=== PATIENT | female | born 1990 | race Caucasian/White ===

== ENCOUNTER 2016-09-26 15:19 | Emergency (ER) | payer OTHER ==
[2016-09-26] MEDS ORDERED: KETOROLAC TROMETHAMINE 30 MG/ML SYRINGE. IV ONE (15:45)
[2016-09-26] MEDS ORDERED: IV NORMAL SALINE 1000ML BAG 1,000 ML IV ONE (15:45)
--- NOTE | 2016-09-26 15:46 | PHYS DOC ---
Past Medical History Past Medical History: No Pertinent History Past Surgical History: No Surgical History Alcohol Use: Occasionally Drug Use: None Adult General Chief Complaint Chief Complaint: FLANK PAIN HPI HPI Patient is a 26 year old female who presents with mild bilateral flank pain for 1 month, patient also states she's had urinary symptoms including dysuria for month. She states she has tried taking cranberry juice, cranberry pills with no relief. Patient denies any chance she is . Denies any nausea vomiting or fever. Denies any unusual vaginal discharge or concerns for STDs. Denies any hematuria or history of kidney stones. Review of Systems Review of Systems Constitutional: See history of present illness Eyes: Denies change in visual acuity, redness, or eye pain [] HENT: Denies nasal congestion or sore throat [] Respiratory: Denies cough or shortness of breath [] Cardiovascular: No additional information not addressed in HPI [] GI: See history of present illness : Bilateral flank pain and dysuria Musculoskeletal: Denies back pain or joint pain [] Integument: Denies rash or skin lesions [] Neurologic: Denies headache, focal weakness or sensory changes [] Endocrine: Denies polyuria or polydipsia [] Current Medications Current Medications Current Medications Medications (Trade) Dose Ordered Sig/Domenico Start Time Stop Time Status Last Admin Dose Admin Ketorolac Tromethamine (Toradol) 30 mg 1X ONCE 09/26/16 15:45 09/26/16 15:46 DC 09/26/16 17:18 30 MG Sodium Chloride (Iv Sodium Chloride 0.9% 1000ml Bag) 1,000 ml @ 1,000 mls/hr 1X ONCE 09/26/16 15:45 09/26/16 16:44 DC 09/26/16 17:17 1,000 MLS/HR Allergies Allergies Allergies Coded Allergies Type Severity Reaction Last Updated Verified No Known Drug Allergies 02/17/16 No Physical Exam Physical Exam Constitutional: Well developed, well nourished, no acute distress, non-toxic appearance. [] HENT: Normocephalic, atraumatic, bilateral external ears normal, oropharynx moist, no oral exudates, nose normal. [] Eyes: PERRLA, EOMI, conjunctiva normal, no discharge. [] Neck: Normal range of motion, no tenderness, supple, no stridor. [] Cardiovascular:Heart rate regular rhythm, no murmur [] Lungs & Thorax: Bilateral breath sounds clear to auscultation [] Abdomen: Bowel sounds normal, soft, no tenderness, no masses, no pulsatile masses. [] Skin: Warm, dry, no erythema, no rash. [] Back: No tenderness, no CVA tenderness. [] Extremities: No tenderness, no cyanosis, no clubbing, ROM intact, no edema. [] Neurologic: Alert and oriented X 3, normal motor function, normal sensory function, no focal deficits noted. [] Psychologic: Affect normal, judgement normal, mood normal. [] Current Patient Data Vital Signs Vital Signs Date Time Temp Pulse Resp B/P Pulse Ox O2 Delivery O2 Flow Rate FiO2 09/26/16 15:43 97.7 85 16 134/70 100 Room Air 97.7 Lab Values Laboratory Tests Test 09/26/16 15:25 09/26/16 17:05 Urine Collection Type Unknown Urine Color Yellow Urine Clarity Cloudy Urine pH 5.5 Urine Specific [place] >=1.030 Urine Protein Negativemg/dL (NEG-TRACE) Urine Glucose (UA) Negativemg/dL (NEG) Urine Ketones (Stick) Negativemg/dL (NEG) Urine Blood Negative (NEG) Urine Nitrite Positive (NEG) Urine Bilirubin Negative (NEG) Urine Urobilinogen Dipstick 0.2mg/dL (0.2 mg/dL) Urine Leukocyte Esterase Small (NEG) Urine RBC 0/HPF (0-2) Urine WBC >40/HPF (0-4) Urine Squamous Epithelial Cells Mod/LPF Urine Bacteria Many/HPF (0-FEW) Urine Mucus Mod/LPF Urine Test Negative (NEG) White Blood Count 9.9x10^3/uL (4.0-11.0) Red Blood Count 3.87x10^6/uL (3.50-5.40) Hemoglobin 12.1g/dL (12.0-15.5) Hematocrit 36.8% (36.0-47.0) Mean Corpuscular Volume 95fL (79-100) Mean Corpuscular Hemoglobin 31pg (25-35) Mean Corpuscular Hemoglobin Concent 33g/dL (31-37) Red Cell Distribution Width 13.7% (11.5-14.5) Platelet Count 254x10^3/uL (140-400) Neutrophils (%) (Auto) 58% (31-73) Lymphocytes (%) (Auto) 31% (24-48) Monocytes (%) (Auto) 8% (0-9) Eosinophils (%) (Auto) 2% (0-3) Basophils (%) (Auto) 0% (0-3) Neutrophils # (Auto) 5.8x10^3uL (1.8-7.7) Lymphocytes # (Auto) 3.1x10^3/uL (1.0-4.8) Monocytes # (Auto) 0.8x10^3/uL (0.0-1.1) Eosinophils # (Auto) 0.2x10^3/uL (0.0-0.7) Basophils # (Auto) 0.0x10^3/uL (0.0-0.2) Sodium Level 140mmol/L (136-145) Potassium Level 3.9mmol/L (3.5-5.1) Chloride Level 103mmol/L (98-107) Carbon Dioxide Level 29mmol/L (21-32) Anion Gap 8 (6-14) Blood Urea Nitrogen 18mg/dL (7-20) Creatinine 0.9mg/dL (0.6-1.0) Estimated GFR (Cockcroft-Gault) 76.3 BUN/Creatinine Ratio 20 (6-20) Glucose Level 82mg/dL (70-99) Calcium Level 8.8mg/dL (8.5-10.1) Total Bilirubin 0.2mg/dL (0.2-1.0) Aspartate Amino Transferase (AST) 12U/L (15-37) L Alanine Aminotransferase (ALT) 16U/L (14-59) Alkaline Phosphatase 60U/L (46-116) Total Protein 7.2g/dL (6.4-8.2) Albumin 3.7g/dL (3.4-5.0) Albumin/Globulin Ratio 1.1 (1.0-1.7) Lipase 160U/L (73-393) Laboratory Tests 09/26/16 17:05 Laboratory Tests 09/26/16 17:05 EKG EKG [] Radiology/Procedures Radiology/Procedures [] Course & Med Decision Making Course & Med Decision Making Pertinent Labs and Imaging studies reviewed. (See chart for details) Patient is in the ED with dysuria and bilateral flank pain for month. Negative urine hCG, urine positive for UTI. CBC CMP lipase with no acute findings, vitals are stable. Patient is not septic. Discharged with Bactrim for 7 days. Discharged with Ultracet for pain. Follow-up with primary care doctor in 1-2 weeks. Instructed to return to the ED if symptoms worsen. Dragon Disclaimer Dragon Disclaimer This electronic medical record was generated, in whole or in part, using a voice recognition dictation system. Departure Departure Impression: Primary Impression: Urinary tract infection Disposition: HOME, SELF-CARE Condition: STABLE Referrals: MENDEZ RUSSELL MD (PCP) Follow-up with your own doctor in one week Patient Instructions: Urinary Tract Infection Additional Instructions: You were seen for urinary tract infection. Please complete your antibiotics. Follow-up with your own doctor in 1-2 weeks. Come back to the emergency room if symptoms worsen. Scripts Sulfamethoxazole/Trimethoprim (Bactrim Ds Tablet)1 Each Tablet1 Tab PO BID #20 TAB Prov:ASHA HUFFMAN APRN 09/26/16 Cyclobenzaprine Hcl 10 Mg Tablet1 Tab PO TID #30 TAB Prov:ASHA HUFFMAN APRN 09/26/16 Tramadol Hcl/Acetaminophen (Ultracet Tablet)1 Each Tablet1 Tab PO Q6HRS #30 TAB Prov:ASHA HUFFMAN APRN 09/26/16 Problem Qualifiers Primary Impression: Urinary tract infection Urinary tract infection type: acute cystitis Hematuria presence: without hematuria Qualified Code: N30.00 - Acute cystitis without hematuria ASHA HUFFMAN APRN Sep 26, 2016 15:46
[2016-09-26 15:52] LABS: BILIRUBIN,URINE NEGATIVE (NEG); GLUCOSE,URINE NEGATIVE (NEG); NITRITE,URINE POSITIVE (NEG); PH,URINE 5.5; PROTEIN,URINE NEGATIVE (NEG-TRACE); UROBILINOGEN,URINE 0.2 mg/dL (0.2 mg/dL)
[2016-09-26 16:02] LABS: NEG OBC UR NEG; POS OBC UR POS
[2016-09-26 16:11] LABS: BACTERIA,URINE MANY /HPF (0-FEW); RBC,URINE 0 /HPF (0-2); SQUAMOUS EPITHELIAL CELL,UR MOD /LPF; WBC,URINE >40 /HPF (0-4)
[2016-09-26 17:14] LABS: BASO % 0 % (0-3); EOS % 2 % (0-3); HEMATOCRIT 36.8 % (36.0-47.0); HEMOGLOBIN 12.1 g/dL (12.0-15.5); LYMPH # 3.1 x10^3/uL (1.0-4.8); LYMPH % 31 % (24-48); MEAN CORPUSCULAR HEMOGLOBIN 31 pg (25-35); MEAN CORPUSCULAR HGB CONC 33 g/dL (31-37); MEAN CORPUSCULAR VOLUME 95 fL (79-100); MONO % 8 % (0-9); NEUT % 58 % (31-73); PLATELET COUNT 254 x10^3/uL (140-400); RED BLOOD COUNT 3.87 x10^6/uL (3.50-5.40); RED CELL DISTRIBUTION WIDTH 13.7 % (11.5-14.5); WHITE BLOOD COUNT 9.9 x10^3/uL (4.0-11.0)
[2016-09-26 17:24] LABS: CALCIUM 8.8 mg/dL (8.5-10.1); CREATININE 0.9 mg/dL (0.6-1.0); GFR 76.3; POTASSIUM 3.9 mmol/L (3.5-5.1)
[2016-09-26 17:30] LABS: ALBUMIN 3.7 g/dL (3.4-5.0); ALBUMIN/GLOBULIN RATIO 1.1 (1.0-1.7); TOTAL BILIRUBIN 0.2 mg/dL (0.2-1.0); TOTAL PROTEIN 7.2 g/dL (6.4-8.2)
[2016-09-26] MEDS ORDERED: CYCL10TA2 PO (18:10)
[2016-09-26] MEDS ORDERED: TRAM1TAB49 PO (18:10)
[2016-09-26] MEDS ORDERED: SULF1TAB24 PO (18:10)
[2016-09-26 18:27] VITALS: BP 112/59
== END 2016-09-26 18:35 | disposition home or self-care (01) ==
LOC: ER 15:19
DX: N39.0 Urinary tract infection, site not specified (principal)
CPT/HCPCS: 36415; 80053; 81001; 81025; 83690; 85027; 87086; 96361; 96374; 99284; J1885; J7030; 87186

== ENCOUNTER 2017-01-02 10:55 | Emergency (ER) | payer OTHER ==
[~2017-01-02 10:55] MED LIST: CYCL10TA2 PO; SULF1TAB24 PO; TRAM1TAB49 PO
[2017-01-02 11:35] VITALS: BP 137/73
[2017-01-02] MEDS ORDERED: HYDROCODONE/APAP 5/325MG TABLET. PO ONE (12:45)
[2017-01-02] MEDS ORDERED: HYDR-971 PO (12:50)
--- NOTE | 2017-01-02 12:50 | PHYS DOC ---
Past Medical History Past Medical History: Other Additional Past Medical Histor: plantar fasciitis Past Surgical History: No Surgical History Additional Information: nonsmoker Alcohol Use: None Drug Use: None Adult General Chief Complaint Chief Complaint: FOOT INJURY PAIN HPI HPI Patient is a 26 year old female who presents with chronic bilateral foot pain. She states that the pain became more sparsely 4 days ago. The pain is worse in the right than the left. She has a history of plantar fasciitis. In the past, she has been prescribed [place], tramadol, and ibuprofen 800 mg for her pain. Tramadol and ibuprofen no longer help with her foot pain. She denies any new injury to her feet. She sees a PCP at [facility]. She does not have a bootmaker. Review of Systems Review of Systems Constitutional: Denies fever or chills. [] Eyes: Denies change in visual acuity, redness, or eye pain. [] HENT: Denies ear pain, nasal congestion or sore throat. [] Respiratory: Denies cough or shortness of breath. [] Cardiovascular: Denies chest pain, palpitations or edema. [] GI: Denies abdominal pain, nausea, vomiting, bloody stools or diarrhea. [] : Denies dysuria, hematuria or urinary frequency. [] Musculoskeletal: Denies back pain or joint pain. Reports bilateral foot pain. Integument: Denies rash or skin lesions. [] Neurologic: Denies headache, focal weakness or sensory changes. [] Endocrine: Denies polyuria or polydipsia. [] Psych: Denies anxiety or depression. [] All systems reviewed and negative unless otherwise stated in the HPI. Current Medications Current Medications Current Medications Medications (Trade) Dose Ordered Sig/[facility] Start Time Stop Time Status Last Admin Dose Admin Acetaminophen/ Hydrocodone Bitart (Lortab 5/325) 1 tab 1X ONCE 01/02/17 12:45 01/02/17 12:46 UNV Allergies Allergies Allergies Coded Allergies Type Severity Reaction Last Updated Verified No Known Drug Allergies 02/17/16 No Physical Exam Physical Exam Constitutional: Well developed, well nourished, no acute distress, non-toxic appearance. [] HENT: Normocephalic, atraumatic, oropharynx moist. [] Eyes: PERRLA, EOMI, conjunctiva normal, no discharge. [] Skin: Warm, dry, no erythema, no rash. [] Extremities: Bilateral plantar foot tenderness, ROM intact, no edema. 2+ DP pulses bilaterally. Less than 2 second capillary refill in the toes bilaterally. Light touch sensation intact distally bilaterally. Neurologic: Alert and oriented X 3, normal motor function, normal sensory function, no focal deficits noted. [] Psychologic: Affect normal, judgement normal, mood normal. [] Current Patient Data Vital Signs Vital Signs Date Time Temp Pulse Resp B/P Pulse Ox O2 Delivery O2 Flow Rate FiO2 01/02/17 11:35 98.3 60 18 100 Room Air 98.3 EKG EKG [] Radiology/Procedures Radiology/Procedures [] Course & Med Decision Making Course & Med Decision Making Pertinent Labs and Imaging studies reviewed. (See chart for details) [] Dragon Disclaimer Dragon Disclaimer This electronic medical record was generated, in whole or in part, using a voice recognition dictation system. Departure Departure Impression: Primary Impression: Plantar fasciitis, bilateral Disposition: HOME, SELF-CARE Condition: STABLE Referrals: DENISE LIVINGSTON DPM Patient Instructions: Plantar Fasciitis Additional Instructions: Please take the prescribed pain medication as directed. Do not drive or operate heavy machinery while taking pain medication. Please follow-up with the bootmaker listed below as soon as possible. Return to the emergency department if you have any new or concerning symptoms. Scripts Hydrocodone/Apap 5-325 ([place] 5-325 Tablet)1 Each Tablet1 Tab PO PRN Q6HRS PRN PAIN #20 TAB Prov:DEON ROYAL 01/02/17 DEON ROYAL Jan 02, 2017 12:50
== END 2017-01-02 13:15 | disposition home or self-care (01) ==
LOC: ER 10:55
DX: M72.2 Plantar fascial fibromatosis (principal)
CPT/HCPCS: 99283

== ENCOUNTER 2018-09-27 17:54 | Emergency (ER) | payer OTHER ==
[~2018-09-27] VITALS: Ht 170.2 cm; Wt 75.7 kg
[~2018-09-27 17:54] MED LIST changes: +HYDR-3164 PO; +IBUP-1060 PO; +OXYC1TAB22 PO; -TRAM1TAB49 PO; +TRAM1TAB56 PO
--- NOTE | 2018-09-27 18:20 | EKG ---
[facility] [address] [place] [address] Test Date: 2018-09-27 Test Time: 18:01:48 Pat Name: RENE CONTRERAS Department: Room: Gender: F [employer] Developer: : 1990 Requested By: PUSHPA GRAMAJO Order Number: [id number] Reading MD: Measurements Intervals [place] Rate: 83 P: 42 WI: 148 QRS: 57 QRSD: 96 T: 23 QT: 366 QTc: 436 Interpretive Statements SINUS RHYTHM NO SPECIFIC ECG ABNORMALITIES RI6.01 No previous ECG available for comparison
--- NOTE | 2018-09-27 18:27 | PHYS DOC ---
Past Medical History Past Medical History: Pneumonia, Other Additional Past Medical Histor: plantar fasciitis; MRSA; Abscess Past Surgical History: Tubal ligation, Other Additional Past Surgical Histo: I&D Alcohol Use: None Drug Use: None Adult General Chief Complaint Chief Complaint: CHEST PAIN-NON CARDIAC NATURE HPI HPI Patient is a 28 year old female who presents with left chest discomfort. This started approximately 3 days ago, became worse 4 hours ago. Worse with breathing , worse with movement. Location is in the upper chest and wraps to the lateral side of the chest. It is sharp and stabbing in nature. Patient was recently diagnosed with MRSA and is currently receiving daptomycin daily. These are the same symptoms as just prior to being diagnosed with a MRSA infection. Patient reports that her maximum temperature was 98 9 at home. There's been no travel. No new trauma. No relief with ibuprofen 800 mg.[] Review of Systems Review of Systems Constitutional: Denies fever or chills [] Eyes: Denies change in visual acuity, redness, or eye pain [] HENT: Denies nasal congestion or sore throat [] Respiratory: Denies cough or shortness of breath [] Cardiovascular: No additional information not addressed in HPI [] GI: Denies abdominal pain, nausea, vomiting, bloody stools or diarrhea [] : Denies dysuria or hematuria [] Musculoskeletal: Denies back pain or joint pain [] Integument: Denies rash or skin lesions [] Neurologic: Denies headache, focal weakness or sensory changes [] Endocrine: Denies polyuria or polydipsia [] All other systems were reviewed and found to be within normal limits, except as documented in this note. Current Medications Current Medications Current Medications Medications (Trade) Dose Ordered Sig/Domenico Start Time Stop Time Status Last Admin Dose Admin Info (CONTRAST GIVEN -- Rx MONITORING) 1 each PRN DAILY PRN 09/27/18 19:45 09/29/18 19:44 Iohexol (Omnipaque 300 Mg/ml) 90 ml 1X ONCE 09/27/18 19:30 09/27/18 19:31 DC 09/27/18 19:45 90 ML Ketorolac Tromethamine (Toradol 15mg Vial) 15 mg 1X ONCE 09/27/18 18:30 09/27/18 18:31 DC 09/27/18 18:55 15 MG Morphine Sulfate (Morphine Sulfate) 4 mg 1X ONCE 09/27/18 19:30 09/27/18 19:31 DC 09/27/18 19:29 4 MG Ondansetron HCl (Zofran) 4 mg 1X ONCE 09/27/18 19:30 09/27/18 19:31 DC 09/27/18 19:29 4 MG Allergies Allergies Allergies Coded Allergies Type Severity Reaction Last Updated Verified I S O L A T I O N *CONTACT* Allergy Unknown 09/16/18 Yes No Known Medication Allergies Allergy Unknown 09/16/18 Yes Physical Exam Physical Exam Constitutional: Well developed, well nourished, no acute distress, non-toxic appearance. [] HENT: Normocephalic, atraumatic, bilateral external ears normal, oropharynx moist, no oral exudates, nose normal. [] Eyes: PERRLA, EOMI, conjunctiva normal, no discharge. [] Neck: Normal range of motion, no tenderness, supple, no stridor. [] Cardiovascular:Heart rate regular rhythm, no murmur [] Lungs & Thorax: Bilateral breath sounds clear to auscultation. Left thorax there is no erythema, no appreciable foreign body/abscess/fluctuance in the skin at the areas of discomfort. [] Abdomen: Bowel sounds normal, soft, no tenderness, no masses, no pulsatile masses. [] Skin: Warm, dry, no erythema, no rash. [] Back: No tenderness, no CVA tenderness. [] Extremities: No tenderness, no cyanosis, no clubbing, ROM intact, no edema. [] Neurologic: Alert and oriented X 3, normal motor function, normal sensory function, no focal deficits noted. [] Psychologic: Affect normal, judgement normal, mood normal. [] Current Patient Data Vital Signs Vital Signs Date Time Temp Pulse Resp B/P (MAP) Pulse Ox O2 Delivery O2 Flow Rate FiO2 09/27/18 20:25 99 18 102/55 (71) 99 Room Air 09/27/18 18:00 98.2 98.2 Lab Values Laboratory Tests Test 09/27/18 18:20 09/27/18 18:28 09/27/18 18:35 09/27/18 18:36 Urine Opiates Screen Pos (NEG) Urine Methadone Screen Neg (NEG) Urine Barbiturates Neg (NEG) Urine Phencyclidine Screen Neg (NEG) Urine Amphetamine/Methamphetamine Neg (NEG) Urine Benzodiazepines Screen Neg (NEG) Urine Cocaine Screen Neg (NEG) Urine Cannabinoids Screen Neg (NEG) Urine Ethyl Alcohol Neg (NEG) White Blood Count 10.5 x10^3/uL (4.0-11.0) Red Blood Count 2.97 x10^6/uL (3.50-5.40) L Hemoglobin 9.4 g/dL (12.0-15.5) L Hematocrit 27.5 % (36.0-47.0) L Mean Corpuscular Volume 93 fL (79-100) Mean Corpuscular Hemoglobin 32 pg (25-35) Mean Corpuscular Hemoglobin Concent 34 g/dL (31-37) Red Cell Distribution Width 15.5 % (11.5-14.5) H Platelet Count 189 x10^3/uL (140-400) Neutrophils (%) (Auto) 78 % (31-73) H Lymphocytes (%) (Auto) 14 % (24-48) L Monocytes (%) (Auto) 6 % (0-9) Eosinophils (%) (Auto) 1 % (0-3) Basophils (%) (Auto) 1 % (0-3) Neutrophils # (Auto) 8.2 x10^3uL (1.8-7.7) H Lymphocytes # (Auto) 1.5 x10^3/uL (1.0-4.8) Monocytes # (Auto) 0.6 x10^3/uL (0.0-1.1) Eosinophils # (Auto) 0.1 x10^3/uL (0.0-0.7) Basophils # (Auto) 0.1 x10^3/uL (0.0-0.2) Prothrombin Time 13.5 SEC (11.7-14.0) Prothrombin Time INR 1.1 (0.8-1.1) D-Dimer (Bere) 1.56 ug/mlFEU (0.00-0.50) H Sodium Level 136 mmol/L (136-145) Potassium Level 3.9 mmol/L (3.5-5.1) Chloride Level 101 mmol/L (98-107) Carbon Dioxide Level 27 mmol/L (21-32) Anion Gap 8 (6-14) Blood Urea Nitrogen 12 mg/dL (7-20) Creatinine 0.6 mg/dL (0.6-1.0) Estimated GFR (Cockcroft-Gault) 119.9 Glucose Level 86 mg/dL (70-99) Calcium Level 9.1 mg/dL (8.5-10.1) AN-Xuz-G-Type Natriuretic Peptide 169 pg/mL (0-124) H POC Urine HCG, Qualitative Hcg negative (Negative) POC Troponin I 0.00 ng/ml (<0.08) Laboratory Tests 09/27/18 18:28 Laboratory Tests 09/27/18 18:28 EKG EKG EKG shows a sinus rhythm at 83 beats per minute, normal axis, QTC of 436 ms, no ST elevations[] Radiology/Procedures Radiology/Procedures EXAM: CT ANGIOGRAPHY OF THE CHEST WITH AND WITHOUT INTRAVENOUS CONTRAST. HISTORY: Left chest pain, elevated d-dimer. TECHNIQUE: Computed tomographic angiography of the chest was performed before and after the intravenous administration of 90 mL Omnipaque 300. 3-D maximum intensity projections were also performed. COMPARISON: 09/12/2018. FINDINGS: Images of the upper abdomen reveal no acute abnormality. Bone windows reveal no suspicious lesions. A left arm PICC line has its tip in the superior cavoatrial junction. No pulmonary emboli are identified. There is no aortic dissection or aneurysm. There is mild thickening of the left serratus musculature and intercostal musculature extending into the subpectoral and axillary distribution. This is significantly decreased since the prior study. A lateral aortic lymph node measures 10 x 8 mm. A prevascular node measures 1.2 x 0.8 cm. These are likely reactive in this setting. There is no pleural or pericardial effusion. The heart is not enlarged. Lung windows reveal no infiltrates. There is mild air trapping posteriorly. IMPRESSION: 1. No pulmonary embolism. 2. The inflammatory process within the left chest wall musculature has almost completely resolved. 3. Small mediastinal lymph nodes are most likely reactive in this setting.[] Course & Med Decision Making Course & Med Decision Making Pertinent Labs and Imaging studies reviewed. (See chart for details) ED course: Patient arrived, was placed in bed, in tolerated exam well. Patient received little improvement with ketorolac so morphine was administered. Patient had significant improvement in her discomfort with the morphine. She was transferred to and from [place] with any complications. After the return of lab and CT findings, these were discussed with the patient who voiced understanding. All questions were answered. Patient was discharged in improved condition. Asif decision making: There is no evidence of worsening infection, no PE, no evidence of acute coronary syndrome, no pneumonia, no pneumothorax. Patient is receiving treatment for the skin infection which seems to be significantly improved.[] Dragon Disclaimer Dragon Disclaimer This electronic medical record was generated, in whole or in part, using a voice recognition dictation system. Departure Departure Impression: Primary Impression: Chest pain Disposition: HOME, SELF-CARE Condition: GOOD Referrals: UNKNOWN PCP NAME (PCP) Patient Instructions: Chest Pain (Nonspecific) Additional Instructions: Follow-up with your regular doctor and infectious disease doctor tomorrow. Return to the ER if worsening pain, difficulty breathing, or any other concerns. Scripts Hydrocodone/Apap 5-325 ([place] 5-325 TABLET) 1 Each Tablet 1-2 EACH PO PRN Q6HRS PRN for SEVERE PAIN, #15 as needed for pain Prov: PUSHPA GRAMAJO DO 09/27/18 Meloxicam (MELOXICAM) 7.5 Mg Tablet 7.5 MG PO DAILY, #20 TAB Prov: PUSHPA GRAMAJO DO 09/27/18 Problem Qualifiers Primary Impression: Chest pain Chest pain type: unspecified Qualified Codes: R07.9 - Chest pain, unspecified PUSHPA GRAMAJO DO Sep 27, 2018 18:27
[2018-09-27] MEDS ORDERED: KETOROLAC 15 MG/ML VIAL. IV ONE (18:30)
[2018-09-27 18:47] LABS: BASO # 0.1 x10^3/uL (0.0-0.2); BASO % 1 % (0-3); EOS # 0.1 x10^3/uL (0.0-0.7); EOS % 1 % (0-3); HEMATOCRIT 27.5 % (36.0-47.0); HEMOGLOBIN 9.4 g/dL (12.0-15.5); LYMPH # 1.5 x10^3/uL (1.0-4.8); LYMPH % 14 % (24-48); MEAN CORPUSCULAR HEMOGLOBIN 32 pg (25-35); MEAN CORPUSCULAR HGB CONC 34 g/dL (31-37); MEAN CORPUSCULAR VOLUME 93 fL (79-100); MONO # 0.6 x10^3/uL (0.0-1.1); MONO % 6 % (0-9); NEUT # 8.2 x10^3uL (1.8-7.7); NEUT % 78 % (31-73); PLATELET COUNT 189 x10^3/uL (140-400); RED BLOOD COUNT 2.97 x10^6/uL (3.50-5.40); RED CELL DISTRIBUTION WIDTH 15.5 % (11.5-14.5); WHITE BLOOD COUNT 10.5 x10^3/uL (4.0-11.0)
[2018-09-27 18:56] LABS: BARBITURATES NEG (NEG); BENZODIAZEPINES NEG (NEG); CANNABINOIDS NEG (NEG); COCAINE NEG (NEG); METHADONE NEG (NEG); OPIATES POS (NEG); PHENCYCLIDINE NEG (NEG)
[2018-09-27 18:57] LABS: AMPHETAMINE/METHAMPHETAMINE NEG (NEG)
[2018-09-27 18:57] LABS: PROTHROMBIN TIME PATIENT 13.5 SEC (11.7-14.0)
[2018-09-27 19:00] LABS: D-DIMER 1.56 ug/mlFEU (0.00-0.50)
[2018-09-27 19:21] LABS: CALCIUM 9.1 mg/dL (8.5-10.1); CREATININE 0.6 mg/dL (0.6-1.0); GFR 119.9; POTASSIUM 3.9 mmol/L (3.5-5.1)
[2018-09-27] MEDS ORDERED: IOHEXOL 300 MG/ML 100ML VIAL. IV ONE (19:30)
[2018-09-27] MEDS ORDERED: MORPHINE SULFATE 4 MG/ML VIAL. IV ONE (19:30)
[2018-09-27] MEDS ORDERED: ONDANSETRON PF 4 MG/2 ML VIAL. IV ONE (19:30)
[2018-09-27] MEDS ORDERED: CONTRAST GIVEN. MC PRN (19:45)
--- NOTE | 2018-09-27 19:46 | RAD ---
EXAM: CHEST 1 VIEW. HISTORY: Left chest pain. COMPARISON: 09/12/2018. FINDINGS: A frontal view of the chest is obtained. A left arm PICC line has its tip in the superior cavoatrial junction. There are no confluent infiltrates. There is no pneumothorax or pleural effusion. The heart is not enlarged. IMPRESSION: 1. No confluent infiltrates. Refer to recent chest CT for description of the chest wall infectious process. Electronically signed by: Tameka Daly MD (09/27/2018 7:41 PM) [facility]
--- NOTE | 2018-09-27 20:35 | RAD ---
EXAM: CT ANGIOGRAPHY OF THE CHEST WITH AND WITHOUT INTRAVENOUS CONTRAST. HISTORY: Left chest pain, elevated d-dimer. TECHNIQUE: Computed tomographic angiography of the chest was performed before and after the intravenous administration of 90 mL Omnipaque 300. 3-D maximum intensity projections were also performed. COMPARISON: 09/12/2018. FINDINGS: Images of the upper abdomen reveal no acute abnormality. Bone windows reveal no suspicious lesions. A left arm PICC line has its tip in the superior cavoatrial junction. No pulmonary emboli are identified. There is no aortic dissection or aneurysm. There is mild thickening of the left serratus musculature and intercostal musculature extending into the subpectoral and axillary distribution. This is significantly decreased since the prior study. A lateral aortic lymph node measures 10 x 8 mm. A prevascular node measures 1.2 x 0.8 cm. These are likely reactive in this setting. There is no pleural or pericardial effusion. The heart is not enlarged. Lung windows reveal no infiltrates. There is mild air trapping posteriorly. IMPRESSION: 1. No pulmonary embolism. 2. The inflammatory process within the left chest wall musculature has almost completely resolved. 3. Small mediastinal lymph nodes are most likely reactive in this setting. *One or more of the following individualized dose reduction techniques were utilized for this examination: 1. Automated exposure control. 2. Adjustment of the mA and/or kV according to patient size. 3. Use of iterative reconstruction technique. Electronically signed by: Tameka Daly MD (09/27/2018 8:31 PM) [facility]
[2018-09-27 20:55] VITALS: BP 109/54
[2018-09-27] MEDS ORDERED: MELO7.5T29 PO (21:22)
[2018-09-27] MEDS ORDERED: HYDR-3164 PO (21:22)
== END 2018-09-27 21:33 | disposition home or self-care (01) ==
LOC: ER 17:54
DX: R07.89 Other chest pain (principal); Z88.8 Allergy status to other drugs, medicaments and biological substances
CPT/HCPCS: 36415; 71045; 71275; 80048; 80307; 81025; 83880; 84484; 85025; 85379; 85610; 87040; 87205; 93005; 96374; 96375; 99284; J1885; J2270; J2405; Q9967

== ENCOUNTER 2018-09-29 17:16 | Inpatient (IN) | payer OTHER ==
[~2018-09-29] VITALS: Ht 170.2 cm; Wt 75.7 kg
[~2018-09-29 17:16] MED LIST changes: +MELO7.5T29 PO
[2018-09-29 20:30] LABS: CREATININE 0.6 mg/dL (0.6-1.0); GFR 119.9; POTASSIUM 4.2 mmol/L (3.5-5.1)
[2018-09-29 20:31] LABS: C-REACTIVE PROTEIN 49.8 mg/L (0-3.3); PREG TEST PT QUAL NEGATIVE (NEG)
[2018-09-29 20:45] LABS: ALBUMIN 3.2 g/dL (3.4-5.0); ALBUMIN/GLOBULIN RATIO 0.7 (1.0-1.7); TOTAL BILIRUBIN 0.2 mg/dL (0.2-1.0); TOTAL PROTEIN 8.1 g/dL (6.4-8.2)
[2018-09-29 20:45] LABS: BASO % 1 % (0-3); EOS # 0.4 x10^3/uL (0.0-0.7); EOS % 4 % (0-3); LYMPH # 2.1 x10^3/uL (1.0-4.8); LYMPH % 23 % (24-48); MEAN CORPUSCULAR HEMOGLOBIN 32 pg (25-35); MEAN CORPUSCULAR HGB CONC 35 g/dL (31-37); MEAN CORPUSCULAR VOLUME 93 fL (79-100); MONO # 0.6 x10^3/uL (0.0-1.1); MONO % 7 % (0-9); NEUT # 6.3 x10^3uL (1.8-7.7); NEUT % 67 % (31-73); PLATELET COUNT 234 x10^3/uL (140-400); RED BLOOD COUNT 3.12 x10^6/uL (3.50-5.40); RED CELL DISTRIBUTION WIDTH 15.5 % (11.5-14.5); WHITE BLOOD COUNT 9.5 x10^3/uL (4.0-11.0)
[2018-09-29] MEDS ORDERED: VANCOMYCIN 2 GM in IV NORMAL SALINE 500ML BAG 500 ML IV ONE (21:30)
[2018-09-29 21:38] VITALS: BP 115/63
[2018-09-29] MEDS ORDERED: ONDANSETRON PF 4 MG/2 ML VIAL. IV PRN (21:45)
[2018-09-29] MEDS ORDERED: PIP/TAZO PER PHARMACY MC PRN (21:45)
--- NOTE | 2018-09-29 21:45 | NUR ---
ADMIT Pt arrived to unit via gurney. Pt A/Ox4, room air, VSS. C/O Left Chest pain, axillary pain 8-06/01. Chronic pain for several days with little to no relief at home. Patient tearful about re-admission to hospital due to out patient positive blood cultures. FUll admission assessment completed at this time. Left Upper Arm SL PICC, Vanco 2gm currently infusing. Dressing change dated 09/28/18, per pt by home [facility] nurse. Discussed plan of care, discussed previous hospital stay in great length. Reassured patient of admission and offered box lunch and ice water and advised this RN will obtain orders for pain, and nausea if needed. Bed in lowest, locked position. Call light w/in reach. Will continue to monitor closely.
--- NOTE | 2018-09-29 22:35 | NUR ---
Pt continues to c/o pain 06/01. Md contacted for pain medication orders. 30mg Toradol IVP PRN Q8hrs rec'd. MD denied to restart home medications of Hydrocodone and Oxycodone. Advised RN may restart Meloxicam and try Toradol. MD denied need for pulmonary consult due to left chest pain, advised Dr. Mancera will see her tomorrow. Advised MD of BC set drawn from line, but not peripheral. Orders rec'd for Blood culture x2, one for line and one from peripheral. Will continue to monitor closely.
[2018-09-29] MEDS: IV NORMAL SALINE 1000ML BAG 1,000 ML IV SCH (22:52)
[2018-09-29] MEDS: KETOROLAC 30 MG/ML VIAL. IV PRN (22:52)
--- NOTE | 2018-09-29 23:30 | NUR ---
Dr. Long currently at the [facility], [facility]. Order placed at this time, and this RN discussed plan of care with .
[2018-09-30] MEDS: PIPERACILLIN/TAZOBACTAM 4.5 GM in IV NORMAL SALINE 100ML 100 ML IV SCH ×4 (00:01→18:00)
[2018-09-30] MEDS: MIRTAZAPINE 15 MG TABLET PO SCH ×2 (00:01→22:28)
--- NOTE | 2018-09-30 00:12 | RAD ---
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 Heart size and pulmonary vascular are normal. No infiltrate or effusion. Bony structures are unremarkable. No pneumothorax. Impression: No active disease. Electronically signed by: Baljeet Cutler MD (09/30/2018 12:08 AM) [facility]
--- NOTE | 2018-09-30 01:13 | PDOC1 ---
History and Physical Date of Admission Date of Admission 09/30/2017 Identification/Chief Complaint Chief Complaint They told me to come back Problems: (1) Bacteremia Source Source: Chart review, Patient History of Present Illness History of Present Illness Patient is a 28-year-old female with no significant past medical history who was recently admitted to our institution for a MRSA bacteremia. The patient also had the following diagnoses on the last discharge Left hip abscess status post IND 09/13/18 left upper chest/axillary cellulitis rt elbow cellulitis s/p iv drug drug abuse with meth and iv oxycodone CAP anemia, normocytic /4 + bcx 09/08, 2/4 + 09/09 small lung nodule and adenopathy in CT Patient missed an appointment with her outpatient daptomycin infusion center approximately a week ago otherwise she has been adherent to the treatment. Today 's prior to her admission she came to the emergency department with complaints of generalized malaise and subjective fevers. She was evaluated in the emergency department and have blood cultures drawn at that time. These were reported today with gram-positive cocci in clusters and in chains reason why she was asked to come to the emergency department. She did have a febrile episode earlier in the day with a temperature recorded at 100.7 Fahrenheit. The patient is complaining off chest discomfort which seems to be chronic in nature since her last admission. She describes the discomfort as someone poking on the wound. She denies breaks in the skin no rashes no lesions were evident. The patient is very tearful during my encounter given that she is very confused about why she is being admitted to the hospital. I have explained the results of her blood cultures and the need to seek for other sources of infection at this time Patient denies IV drug abuse no history of trauma recently no breaks in her skin no rashes or lesions reported no travels outside the area and no sick exposures either. Reassurance of them provided and the plan of care explaining detail Past Medical History Cardiovascular: No pertinent hx Pulmonary: No pertinent hx GI: No pertinent hx Heme/Onc: No pertinent hx Hepatobiliary: No pertinent hx Psych: No pertinent hx Rheumatologic: No pertinent hx Infectious disease: No pertinent hx Renal/: No pertinent hx Endocrine: No pertinent hx Past Surgical History Past Surgical History: Tubal Ligation, Other Family History Family History: No Significant, Hypertension Social History ALCOHOL: rare Drugs: Crystal meth Current Medications Current Medications Current Medications Medications (Trade) Dose Ordered Sig/Domenico Start Time Stop Time Status Last Admin Dose Admin Ketorolac Tromethamine (Toradol 30mg Vial) 30 mg PRN Q8HRS PRN 09/29/18 22:45 10/04/18 22:44 09/29/18 22:52 30 MG Linezolid/Dextrose 300 ml @ 300 mls/hr Q12HR 09/29/18 22:30 Meloxicam (Mobic) 7.5 mg DAILY 09/30/18 09:00 Mirtazapine (Remeron) 15 mg QHS 09/29/18 23:30 09/30/18 00:01 15 MG Ondansetron HCl (Zofran) 4 mg PRN Q8HRS PRN 09/29/18 21:45 09/30/18 21:44 Piperacillin Sod/ Tazobactam Sod (Zosyn Per Pharmacy) 1 each PRN DAILY PRN 09/29/18 21:45 Piperacillin Sod/ Tazobactam Sod 4.5 gm/Sodium Chloride 100 ml @ 200 mls/hr Q6HRS 09/30/18 00:00 09/30/18 00:01 200 MLS/HR Sodium Chloride 1,000 ml @ 125 mls/hr Q8H 09/29/18 21:32 09/30/18 21:31 09/29/18 22:52 125 MLS/HR Vancomycin HCl (Vanco Per Pharmacy) 1 each PRN DAILY PRN 09/29/18 21:00 Vancomycin HCl 2 gm/Sodium Chloride 500 ml @ 250 mls/hr 1X ONCE 09/29/18 21:30 09/29/18 23:29 DC 09/29/18 21:05 250 MLS/HR Allergies Allergies Allergies Coded Allergies Type Severity Reaction Last Updated Verified I S O L A T I O N *CONTACT* Allergy Unknown 09/16/18 Yes No Known Medication Allergies Allergy Unknown 09/16/18 Yes ROS Review of System CONSTITUTIONAL: + fever and chills EYES: No recent changes SKIN: No rash or itching CARDIOVASCULAR: No chest pain, syncope, palpitations, or edema RESPIRATORY: No SOB or cough GASTROINTESTINAL: No nausea, vomiting or abdominal pain NEUROLOGICAL: No headaches or weakness ENDOCRINE: No cold or heat intolerance GENITOURINARY: No urgency or frequency of urination MUSCULOSKELETAL: No back pain or joint pain LYMPHATICS: No enlarged lymph nodes PSYCHIATRIC: No anxiety or depression Physical Exam Physical Exam GEN.: No apparent distress. Alert and oriented. HEENT: Head is normocephalic, atraumatic NECK: Supple. LUNGS: Clear to auscultation. HEART: RRR, S1, S2 present. Peripheral pulses intact ABDOMEN: Soft, nontender. Positive bowel sounds. EXTREMITIES: Without any cyanosis. NEUROLOGIC: Normal speech, normal tone PSYCHIATRIC: Normal affect, normal mood. SKIN: No ulcerations Vitals Vitals Vital Signs Date Time Temp Pulse Resp B/P (MAP) Pulse Ox O2 Delivery O2 Flow Rate FiO2 09/29/18 21:45 Room Air 09/29/18 21:38 98.5 79 18 115/63 (80) 100 98.5 Labs Labs Laboratory Tests Test 09/29/18 19:35 09/29/18 20:35 Sodium Level 139 mmol/L (136-145) Potassium Level 4.2 mmol/L (3.5-5.1) Chloride Level 104 mmol/L (98-107) Carbon Dioxide Level 26 mmol/L (21-32) Anion Gap 9 (6-14) Blood Urea Nitrogen 14 mg/dL (7-20) Creatinine 0.6 mg/dL (0.6-1.0) Estimated GFR (Cockcroft-Gault) 119.9 BUN/Creatinine Ratio 23 (6-20) Glucose Level 80 mg/dL (70-99) Calcium Level 9.0 mg/dL (8.5-10.1) Total Bilirubin 0.2 mg/dL (0.2-1.0) Aspartate Amino Transf (AST/SGOT) 11 U/L (15-37) Alanine Aminotransferase (ALT/SGPT) 18 U/L (14-59) Alkaline Phosphatase 91 U/L (46-116) C-Reactive Protein, Quantitative 49.8 mg/L (0-3.3) Total Protein 8.1 g/dL (6.4-8.2) Albumin 3.2 g/dL (3.4-5.0) Albumin/Globulin Ratio 0.7 (1.0-1.7) Serum Test, Qualitative Negative (NEG) White Blood Count 9.5 x10^3/uL (4.0-11.0) Red Blood Count 3.12 x10^6/uL (3.50-5.40) Hemoglobin 10.0 g/dL (12.0-15.5) Hematocrit 29.0 % (36.0-47.0) Mean Corpuscular Volume 93 fL (79-100) Mean Corpuscular Hemoglobin 32 pg (25-35) Mean Corpuscular Hemoglobin Concent 35 g/dL (31-37) Red Cell Distribution Width 15.5 % (11.5-14.5) Platelet Count 234 x10^3/uL (140-400) Neutrophils (%) (Auto) 67 % (31-73) Lymphocytes (%) (Auto) 23 % (24-48) Monocytes (%) (Auto) 7 % (0-9) Eosinophils (%) (Auto) 4 % (0-3) Basophils (%) (Auto) 1 % (0-3) Neutrophils # (Auto) 6.3 x10^3uL (1.8-7.7) Lymphocytes # (Auto) 2.1 x10^3/uL (1.0-4.8) Monocytes # (Auto) 0.6 x10^3/uL (0.0-1.1) Eosinophils # (Auto) 0.4 x10^3/uL (0.0-0.7) Basophils # (Auto) 0.0 x10^3/uL (0.0-0.2) Laboratory Tests Test 09/29/18 19:35 09/29/18 20:35 Sodium Level 139 mmol/L (136-145) Potassium Level 4.2 mmol/L (3.5-5.1) Chloride Level 104 mmol/L (98-107) Carbon Dioxide Level 26 mmol/L (21-32) Anion Gap 9 (6-14) Blood Urea Nitrogen 14 mg/dL (7-20) Creatinine 0.6 mg/dL (0.6-1.0) Estimated GFR (Cockcroft-Gault) 119.9 BUN/Creatinine Ratio 23 (6-20) Glucose Level 80 mg/dL (70-99) Calcium Level 9.0 mg/dL (8.5-10.1) Total Bilirubin 0.2 mg/dL (0.2-1.0) Aspartate Amino Transf (AST/SGOT) 11 U/L (15-37) Alanine Aminotransferase (ALT/SGPT) 18 U/L (14-59) Alkaline Phosphatase 91 U/L (46-116) C-Reactive Protein, Quantitative 49.8 mg/L (0-3.3) Total Protein 8.1 g/dL (6.4-8.2) Albumin 3.2 g/dL (3.4-5.0) Albumin/Globulin Ratio 0.7 (1.0-1.7) Serum Test, Qualitative Negative (NEG) White Blood Count 9.5 x10^3/uL (4.0-11.0) Red Blood Count 3.12 x10^6/uL (3.50-5.40) Hemoglobin 10.0 g/dL (12.0-15.5) Hematocrit 29.0 % (36.0-47.0) Mean Corpuscular Volume 93 fL (79-100) Mean Corpuscular Hemoglobin 32 pg (25-35) Mean Corpuscular Hemoglobin Concent 35 g/dL (31-37) Red Cell Distribution Width 15.5 % (11.5-14.5) Platelet Count 234 x10^3/uL (140-400) Neutrophils (%) (Auto) 67 % (31-73) Lymphocytes (%) (Auto) 23 % (24-48) Monocytes (%) (Auto) 7 % (0-9) Eosinophils (%) (Auto) 4 % (0-3) Basophils (%) (Auto) 1 % (0-3) Neutrophils # (Auto) 6.3 x10^3uL (1.8-7.7) Lymphocytes # (Auto) 2.1 x10^3/uL (1.0-4.8) Monocytes # (Auto) 0.6 x10^3/uL (0.0-1.1) Eosinophils # (Auto) 0.4 x10^3/uL (0.0-0.7) Basophils # (Auto) 0.0 x10^3/uL (0.0-0.2) VTE Prophylaxis Ordered VTE Prophylaxis Devices: No VTE Pharmacological Prophylaxi: Yes Assessment/Plan Assessment/Plan Gram positive bacteremia Recent history of MRSA bacteremia History of attempt at intravenous oxycodone injections History of gluteal abscess Anxiety Insomnia Plan: will restart broad spectrum antibiotics will consult ID may need ANASTACIO will discuss with device sales consultant in the remeron for insomnia toradol for pain control Monitor for symptoms of substance withdrawal. DVT prophylaxis: AUGUSTINE Pacheco MD Sep 30, 2018 01:13
[2018-09-30 03:00] VITALS: BP 99/44
[2018-09-30] MEDS: VANCOMYCIN PER PHARMACY MC PRN ×3 (03:18→21:48)
--- NOTE | 2018-09-30 03:18 | NUR ---
Pharmacy Vancomycin Dosing Note S:Consulted to monitor and dose vancomycin started 09/29/18. O:RENE CONTRERAS is a 28 year old F with Bacteremia . Height: 5 feet, 7 inches Weight: 75.666233 kg [place] Body Weight: 61.60 Adjusted Body Weight: 67.36 Dosing Weight: Actual Other Antibiotics: ZYVOX 600 BID ZOSYN 4.5 Q6H LABS: Last BUN: 14 Last Creatinine: 0.6 Creatinine Clearance: >100 mL/min Last WBC: 9.5 Last Platelets: 234 Tmax (past 24 hours): Microbiology: I/O: Drug Levels: Last level: on at Last dose given 09/29/18 at 2100 Vancomycin Dosing: Loading Dose: 2000 mg x1 Dosing Weight: Actual Target Trough: 15-20 A: Based on: WT AND CRCL P: 1. Begin Vancomycin 1250 mg IV q8h 2. Follow up Trough level on 09/30/18 at 2030 3. Pharmacy will continue to monitor, follow and adjust therapy as needed. MARISSA GOMEZ RPH, [id number] Signed: 09/30/18 at 318 by MARISSA GOMEZ RPH PHA
[2018-09-30 04:51] LABS: BASO % 0 % (0-3); EOS # 0.4 x10^3/uL (0.0-0.7); EOS % 4 % (0-3); HEMATOCRIT 27.9 % (36.0-47.0); HEMOGLOBIN 9.4 g/dL (12.0-15.5); LYMPH # 1.5 x10^3/uL (1.0-4.8); LYMPH % 19 % (24-48); MEAN CORPUSCULAR HEMOGLOBIN 31 pg (25-35); MEAN CORPUSCULAR HGB CONC 34 g/dL (31-37); MEAN CORPUSCULAR VOLUME 93 fL (79-100); MONO # 0.5 x10^3/uL (0.0-1.1); MONO % 6 % (0-9); NEUT # 5.7 x10^3uL (1.8-7.7); NEUT % 70 % (31-73); PLATELET COUNT 219 x10^3/uL (140-400); RED BLOOD COUNT 3.01 x10^6/uL (3.50-5.40); RED CELL DISTRIBUTION WIDTH 15.3 % (11.5-14.5); WHITE BLOOD COUNT 8.1 x10^3/uL (4.0-11.0)
[2018-09-30 05:11] LABS: ALBUMIN 2.8 g/dL (3.4-5.0); ALBUMIN/GLOBULIN RATIO 0.6 (1.0-1.7); CALCIUM 8.8 mg/dL (8.5-10.1); CREATININE 0.8 mg/dL (0.6-1.0); POTASSIUM 4.2 mmol/L (3.5-5.1); TOTAL BILIRUBIN 0.5 mg/dL (0.2-1.0); TOTAL PROTEIN 7.3 g/dL (6.4-8.2)
--- NOTE | 2018-09-30 05:23 | PHYS DOC ---
Past Medical History Past Medical History: Pneumonia, Other Additional Past Medical Histor: plantar fasciitis; MRSA; Abscess Past Surgical History: Tubal ligation, Other Additional Past Surgical Histo: I&D Alcohol Use: None Drug Use: None Adult General Chief Complaint Chief Complaint: OTHER COMPLAINTS [facility] HPI Patient is a 28 year old female who presents with bacteremia with positive blood cultures drawn in the emergency department 2 days ago. Patient with recent prolonged hospitalization for MRSA bacteremia secondary to pneumonia. Patient discharged from hospital approximately 10 days ago with PICC line in place. She is currently on daptomycin therapy and is compliant with treatment. Patient was seen in emergency department 2 days ago for chills, sweats and chest pain. CT angiogram, lab and blood cultures were obtained and patient was discharged home. Reports fever of 100.7 yesterday which patient has been treating with [id number] medication with continued chills today. Patient was contacted yesterday regarding positive blood cultures demonstrating gram positive cocci/clusters and chains in 2 bottles and instructed to return immediately to the emergency department. No other acute symptoms or complaints.[ ] Review of Systems Review of Systems ROS as per HPI All other systems were reviewed and found to be within normal limits, except as documented in this note. Allergies Allergies Allergies Coded Allergies Type Severity Reaction Last Updated Verified I S O L A T I O N *CONTACT* Allergy Unknown 09/16/18 Yes No Known Medication Allergies Allergy Unknown 09/16/18 Yes Physical Exam Physical Exam Constitutional: Well developed, well nourished, no acute distress, non-toxic appearance. [] HENT: Normocephalic, atraumatic, bilateral external ears normal, oropharynx moist, no oral exudates, nose normal. [] Eyes: PERRLA, EOMI, conjunctiva normal, no discharge. [] Neck: Normal range of motion, no tenderness, supple, no stridor. [] Cardiovascular:Heart rate regular rhythm, no murmur [] Lungs & Thorax: Bilateral breath sounds clear to auscultation [] Abdomen: Bowel sounds normal, soft, no tenderness. [] Skin: Warm, dry, no erythema, no rash. [] Back: No tenderness, no CVA tenderness. [] Extremities: No tenderness, no cyanosis, no clubbing, ROM intact, no edema. [] Neurologic: Alert and oriented X 3, normal motor function, normal sensory function, no focal deficits noted. [] Psychologic: Affect normal, judgement normal, mood normal. [] Current Patient Data Vital Signs Vital Signs Date Time Temp Pulse Resp B/P (MAP) Pulse Ox O2 Delivery O2 Flow Rate FiO2 09/29/18 19:29 70 18 117/63 (81) 98 Room Air 09/29/18 19:12 97.6 97.6 Lab Values Laboratory Tests Test 09/29/18 19:35 Sodium Level 139 mmol/L (136-145) Potassium Level 4.2 mmol/L (3.5-5.1) Chloride Level 104 mmol/L (98-107) Carbon Dioxide Level 26 mmol/L (21-32) Anion Gap 9 (6-14) Blood Urea Nitrogen 14 mg/dL (7-20) Creatinine 0.6 mg/dL (0.6-1.0) Estimated GFR (Cockcroft-Gault) 119.9 BUN/Creatinine Ratio 23 (6-20) H Glucose Level 80 mg/dL (70-99) Calcium Level 9.0 mg/dL (8.5-10.1) Total Bilirubin 0.2 mg/dL (0.2-1.0) Aspartate Amino Transferase (AST) 11 U/L (15-37) L Alanine Aminotransferase (ALT) 18 U/L (14-59) Alkaline Phosphatase 91 U/L (46-116) C-Reactive Protein, Quantitative 49.8 mg/L (0-3.3) H Total Protein 8.1 g/dL (6.4-8.2) Albumin 3.2 g/dL (3.4-5.0) L Albumin/Globulin Ratio 0.7 (1.0-1.7) L Serum Test, Qualitative Negative (NEG) Laboratory Tests 09/29/18 19:35 EKG EKG [] Radiology/Procedures Radiology/Procedures [Chest x-ray: Negative] Course & Med Decision Making Course & Med Decision Making Pertinent Labs and Imaging studies reviewed. (See chart for details) [Patient started on vancomycin, Zyvox and Zosyn. Hospitalist service to admit with infectious disease consult. Vital signs stable while in the emergency department.] Dragon Disclaimer Dragon Disclaimer This electronic medical record was generated, in whole or in part, using a voice recognition dictation system. Departure Departure Impression: Primary Impression: Bacteremia Disposition: 09 ADMITTED INPATIENT Admitting Physician: Other (Dr. Long) Condition: LEFT WITHOUT BEING SEEN Referrals: NO PCP (PCP) IDRIS SANCHEZ DO Sep 30, 2018 05:23
[2018-09-30] MEDS: VANCOMYCIN 1.25 GM in IV NORMAL SALINE 250ML 250 ML IV SCH ×4 (05:33→22:35)
[2018-09-30 07:00] VITALS: BP 106/54
--- NOTE | 2018-09-30 07:36 | NUR ---
production supervisor off shift nurse took BC sample from PICC line, and lab also took BC from peripheral stick. The blood was sent down with labels accordingly.
[2018-09-30] MEDS: IV NORMAL SALINE 1000ML BAG 1,000 ML IV SCH ×2 (07:52→13:32)
--- NOTE | 2018-09-30 09:25 | NUR ---
IP: Pt has a hx of mrsa in blood and buttock wound on 09/13/18. Pt to be in contact precautions until there are 2 negative blood cultures 7 days apart without antibiotics and no open wounds.
[2018-09-30] MEDS: MELOXICAM 7.5 MG TABLET PO SCH (09:36)
[2018-09-30] MEDS: LACTOBACILLUS RHAMNOSUS GG 1 CAPSULE. PO SCH ×2 (09:36→22:27)
[2018-09-30] MEDS: KETOROLAC 30 MG/ML VIAL. IV PRN (09:38)
--- NOTE | 2018-09-30 10:15 | NUR ---
One lab draw done through PICC line sent to lab at 2345 numbered 132 in lab. Another BC drawn by chemistry laboratory technician through peripheral stick sent to lab at 5959 numbered 133.
--- NOTE | 2018-09-30 10:27 | NUR ---
SW following for dc planning. Discussed with RN, RN advised no SW needs at this time. Per RN, pt has had home health in the past. Pt has a PICC line. SW will confirm with pt.
[2018-09-30 11:00] VITALS: BP 97/47
--- NOTE | 2018-09-30 11:04 | PDOC ---
Infectious Disease Note Subjective Subjective Known to service please see consult dated 09/08 and last progress note 09/17. Has been on outpatient Dapto and has missed one dose. Had been ok but has been having night sweats and occ chills. Appetite ok. No ill contacts No STERLING/Vision change/Sore throat/SOA/N/V/D/dysuria/frequency generalized ache/ rash or joint issues Presented to ER on 09/27 with Chest pain. Blood cults obtained. CP rapidly resolved. Different pain than that associated with previous chest swelling. Was d/c;d home but called back with + blood cults ROS ROS as above Vital Sign Vital Signs Vital Signs Date Time Temp Pulse Resp B/P (MAP) Pulse Ox O2 Delivery O2 Flow Rate FiO2 09/30/18 07:00 97.4 70 16 106/54 (71) 96 Room Air 97.4 Physical Exam PHYSICAL EXAM GENERAL: Propped up in bed,Coop, NAD HEENT: Normal conjunctivae. Oral cavity, pharynx is clear. NECK: Supple. Good range of motion. LUNGS: Clear to auscultation. HEART: S1, S2. no gross murmur Chest - still some discomfort left mid area but no swelling/erythema/warmth/ fluctuance ABDOMEN: Soft, nontender, nondistended with positive bowel sounds. EXTREMITIES: Left hip over trochanteric and gluteal nontender. wound is clean and healed. No erythema/warmth or fluctuance.- Good ROM. There is no left arm, axillary/upper chest area swelling RUE antecubital wound - healed SKIN: Warm to touch without signs of rash. Tattoos. NEUROLOGIC: Alert, responds appropriately PICC LUE ok Labs Lab Laboratory Tests Test 09/29/18 19:35 09/29/18 20:35 09/30/18 03:35 Sodium Level 139 mmol/L (136-145) 140 mmol/L (136-145) Potassium Level 4.2 mmol/L (3.5-5.1) 4.2 mmol/L (3.5-5.1) Chloride Level 104 mmol/L (98-107) 105 mmol/L (98-107) Carbon Dioxide Level 26 mmol/L (21-32) 27 mmol/L (21-32) Anion Gap 9 (6-14) 8 (6-14) Blood Urea Nitrogen 14 mg/dL (7-20) 14 mg/dL (7-20) Creatinine 0.6 mg/dL (0.6-1.0) 0.8 mg/dL (0.6-1.0) Estimated GFR (Cockcroft-Gault) 119.9 86.0 BUN/Creatinine Ratio 23 (6-20) 18 (6-20) Glucose Level 80 mg/dL (70-99) 84 mg/dL (70-99) Calcium Level 9.0 mg/dL (8.5-10.1) 8.8 mg/dL (8.5-10.1) Total Bilirubin 0.2 mg/dL (0.2-1.0) 0.5 mg/dL (0.2-1.0) Aspartate Amino Transf (AST/SGOT) 11 U/L (15-37) 10 U/L (15-37) Alanine Aminotransferase (ALT/SGPT) 18 U/L (14-59) 15 U/L (14-59) Alkaline Phosphatase 91 U/L (46-116) 80 U/L (46-116) C-Reactive Protein, Quantitative 49.8 mg/L (0-3.3) Total Protein 8.1 g/dL (6.4-8.2) 7.3 g/dL (6.4-8.2) Albumin 3.2 g/dL (3.4-5.0) 2.8 g/dL (3.4-5.0) Albumin/Globulin Ratio 0.7 (1.0-1.7) 0.6 (1.0-1.7) Serum Test, Qualitative Negative (NEG) White Blood Count 9.5 x10^3/uL (4.0-11.0) 8.1 x10^3/uL (4.0-11.0) Red Blood Count 3.12 x10^6/uL (3.50-5.40) 3.01 x10^6/uL (3.50-5.40) Hemoglobin 10.0 g/dL (12.0-15.5) 9.4 g/dL (12.0-15.5) Hematocrit 29.0 % (36.0-47.0) 27.9 % (36.0-47.0) Mean Corpuscular Volume 93 fL (79-100) 93 fL (79-100) Mean Corpuscular Hemoglobin 32 pg (25-35) 31 pg (25-35) Mean Corpuscular Hemoglobin Concent 35 g/dL (31-37) 34 g/dL (31-37) Red Cell Distribution Width 15.5 % (11.5-14.5) 15.3 % (11.5-14.5) Platelet Count 234 x10^3/uL (140-400) 219 x10^3/uL (140-400) Neutrophils (%) (Auto) 67 % (31-73) 70 % (31-73) Lymphocytes (%) (Auto) 23 % (24-48) 19 % (24-48) Monocytes (%) (Auto) 7 % (0-9) 6 % (0-9) Eosinophils (%) (Auto) 4 % (0-3) 4 % (0-3) Basophils (%) (Auto) 1 % (0-3) 0 % (0-3) Neutrophils # (Auto) 6.3 x10^3uL (1.8-7.7) 5.7 x10^3uL (1.8-7.7) Lymphocytes # (Auto) 2.1 x10^3/uL (1.0-4.8) 1.5 x10^3/uL (1.0-4.8) Monocytes # (Auto) 0.6 x10^3/uL (0.0-1.1) 0.5 x10^3/uL (0.0-1.1) Eosinophils # (Auto) 0.4 x10^3/uL (0.0-0.7) 0.4 x10^3/uL (0.0-0.7) Basophils # (Auto) 0.0 x10^3/uL (0.0-0.2) 0.0 x10^3/uL (0.0-0.2) Objective Assessment Bacteremia 09/27/2018 GPC in chains and clusters - ? Line infection vs contamination H/o MRSA sepsis/Bacteremia 09/08 and 09/09 MRSA,,, neg bc 09/10 and 09/13 Left hip pain - XRAY neg but MRI + for abscess s/p I and D 09/13 Chest pain - left upper chest pain/fullness - likely infection, though no definite abscess improved on CTA 09/27 Left axillary fullness better R antecubital wound is healed + substance abuse -denies use since discharge Plan Plan of Care Cont Vanc and zosyn for now F/u cults - d/w lab parker this am and no further info on cults from 09/27 F/u repeat cults pending Add on Procalcitonin and CK May need ANASTACIO May need PICC removed F/u labs GRIFFIN AMES MD Sep 30, 2018 11:04
--- NOTE | 2018-09-30 12:41 | PDOC ---
PROGRESS NOTES Chief Complaint Chief Complaint overnight h and p reviewed. reports some chest discomfort. no fevers overnight History of Present Illness History of Present Illness Assessment Bactermia with repeat cultures 09/27 growing GPCs--- ? Line infection vs contamination H/o MRSA sepsis/Bacteremia 09/08 and 09/09 MRSA, neg bc 09/10 and 09/13 Left hip pain - XRAY neg but MRI + for abscess s/p I and D 09/13 and discharged with IV dapto with PICC on 09/17 Chest pain -no definite abscess; improved on CTA 09/27. seen by cardiothoracic sx last admission and no surgical intervention + substance abuse Plan apprec ID Cont Vanc and zosyn. linezolid dc per ID repeat cultures done 09/30. follow no info from cults 09/27 checking Procalcitonin and CK if cultures + will discuss ANASTACIO May need PICC removed pending culture results Vitals Vitals Vital Signs Date Time Temp Pulse Resp B/P (MAP) Pulse Ox O2 Delivery O2 Flow Rate FiO2 09/30/18 11:00 98.3 61 16 97/47 (64) 96 Room Air 98.3 Physical Exam Physical Exam GENERAL: Propped up in bed,Coop, NAD HEENT: Normal conjunctivae. Oral cavity, pharynx is clear. NECK: Supple. Good range of motion. LUNGS: Clear to auscultation. HEART: S1, S2. no gross murmur Chest - still some discomfort left mid area but no swelling/erythema/warmth/ fluctuance ABDOMEN: Soft, nontender, nondistended with positive bowel sounds. EXTREMITIES: Left hip over trochanteric and gluteal nontender. wound is clean and healed. No erythema/warmth or fluctuance.- Good ROM. There is no left arm, axillary/upper chest area swelling RUE antecubital wound - healed SKIN: Warm to touch without signs of rash. Tattoos. NEUROLOGIC: Alert, responds appropriately PICC LUE ok Lungs: Clear Extremities: Other ( Left hip over trochanteric and gluteal nontender. wound is clean and healed. No erythema/warmth or fluctuance. no left arm, axillary/ upper chest area swelling) Labs LABS Laboratory Tests Test 09/29/18 19:35 09/29/18 20:35 09/30/18 03:35 Sodium Level 139 mmol/L (136-145) 140 mmol/L (136-145) Potassium Level 4.2 mmol/L (3.5-5.1) 4.2 mmol/L (3.5-5.1) Chloride Level 104 mmol/L (98-107) 105 mmol/L (98-107) Carbon Dioxide Level 26 mmol/L (21-32) 27 mmol/L (21-32) Anion Gap 9 (6-14) 8 (6-14) Blood Urea Nitrogen 14 mg/dL (7-20) 14 mg/dL (7-20) Creatinine 0.6 mg/dL (0.6-1.0) 0.8 mg/dL (0.6-1.0) Estimated GFR (Cockcroft-Gault) 119.9 86.0 BUN/Creatinine Ratio 23 (6-20) 18 (6-20) Glucose Level 80 mg/dL (70-99) 84 mg/dL (70-99) Calcium Level 9.0 mg/dL (8.5-10.1) 8.8 mg/dL (8.5-10.1) Total Bilirubin 0.2 mg/dL (0.2-1.0) 0.5 mg/dL (0.2-1.0) Aspartate Amino Transf (AST/SGOT) 11 U/L (15-37) 10 U/L (15-37) Alanine Aminotransferase (ALT/SGPT) 18 U/L (14-59) 15 U/L (14-59) Alkaline Phosphatase 91 U/L (46-116) 80 U/L (46-116) C-Reactive Protein, Quantitative 49.8 mg/L (0-3.3) Total Protein 8.1 g/dL (6.4-8.2) 7.3 g/dL (6.4-8.2) Albumin 3.2 g/dL (3.4-5.0) 2.8 g/dL (3.4-5.0) Albumin/Globulin Ratio 0.7 (1.0-1.7) 0.6 (1.0-1.7) Serum Test, Qualitative Negative (NEG) White Blood Count 9.5 x10^3/uL (4.0-11.0) 8.1 x10^3/uL (4.0-11.0) Red Blood Count 3.12 x10^6/uL (3.50-5.40) 3.01 x10^6/uL (3.50-5.40) Hemoglobin 10.0 g/dL (12.0-15.5) 9.4 g/dL (12.0-15.5) Hematocrit 29.0 % (36.0-47.0) 27.9 % (36.0-47.0) Mean Corpuscular Volume 93 fL (79-100) 93 fL (79-100) Mean Corpuscular Hemoglobin 32 pg (25-35) 31 pg (25-35) Mean Corpuscular Hemoglobin Concent 35 g/dL (31-37) 34 g/dL (31-37) Red Cell Distribution Width 15.5 % (11.5-14.5) 15.3 % (11.5-14.5) Platelet Count 234 x10^3/uL (140-400) 219 x10^3/uL (140-400) Neutrophils (%) (Auto) 67 % (31-73) 70 % (31-73) Lymphocytes (%) (Auto) 23 % (24-48) 19 % (24-48) Monocytes (%) (Auto) 7 % (0-9) 6 % (0-9) Eosinophils (%) (Auto) 4 % (0-3) 4 % (0-3) Basophils (%) (Auto) 1 % (0-3) 0 % (0-3) Neutrophils # (Auto) 6.3 x10^3uL (1.8-7.7) 5.7 x10^3uL (1.8-7.7) Lymphocytes # (Auto) 2.1 x10^3/uL (1.0-4.8) 1.5 x10^3/uL (1.0-4.8) Monocytes # (Auto) 0.6 x10^3/uL (0.0-1.1) 0.5 x10^3/uL (0.0-1.1) Eosinophils # (Auto) 0.4 x10^3/uL (0.0-0.7) 0.4 x10^3/uL (0.0-0.7) Basophils # (Auto) 0.0 x10^3/uL (0.0-0.2) 0.0 x10^3/uL (0.0-0.2) Creatine Kinase 17 U/L (26-192) Procalcitonin < 0.10 ng/mL (0.00-0.10) Comment Review of Relevant I have reviewed the following items rima (where applicable) has been applied. Labs Laboratory Tests Test 09/29/18 19:35 09/29/18 20:35 09/30/18 03:35 Sodium Level 139 mmol/L (136-145) 140 mmol/L (136-145) Potassium Level 4.2 mmol/L (3.5-5.1) 4.2 mmol/L (3.5-5.1) Chloride Level 104 mmol/L (98-107) 105 mmol/L (98-107) Carbon Dioxide Level 26 mmol/L (21-32) 27 mmol/L (21-32) Anion Gap 9 (6-14) 8 (6-14) Blood Urea Nitrogen 14 mg/dL (7-20) 14 mg/dL (7-20) Creatinine 0.6 mg/dL (0.6-1.0) 0.8 mg/dL (0.6-1.0) Estimated GFR (Cockcroft-Gault) 119.9 86.0 BUN/Creatinine Ratio 23 (6-20) 18 (6-20) Glucose Level 80 mg/dL (70-99) 84 mg/dL (70-99) Calcium Level 9.0 mg/dL (8.5-10.1) 8.8 mg/dL (8.5-10.1) Total Bilirubin 0.2 mg/dL (0.2-1.0) 0.5 mg/dL (0.2-1.0) Aspartate Amino Transf (AST/SGOT) 11 U/L (15-37) 10 U/L (15-37) Alanine Aminotransferase (ALT/SGPT) 18 U/L (14-59) 15 U/L (14-59) Alkaline Phosphatase 91 U/L (46-116) 80 U/L (46-116) C-Reactive Protein, Quantitative 49.8 mg/L (0-3.3) Total Protein 8.1 g/dL (6.4-8.2) 7.3 g/dL (6.4-8.2) Albumin 3.2 g/dL (3.4-5.0) 2.8 g/dL (3.4-5.0) Albumin/Globulin Ratio 0.7 (1.0-1.7) 0.6 (1.0-1.7) Serum Test, Qualitative Negative (NEG) White Blood Count 9.5 x10^3/uL (4.0-11.0) 8.1 x10^3/uL (4.0-11.0) Red Blood Count 3.12 x10^6/uL (3.50-5.40) 3.01 x10^6/uL (3.50-5.40) Hemoglobin 10.0 g/dL (12.0-15.5) 9.4 g/dL (12.0-15.5) Hematocrit 29.0 % (36.0-47.0) 27.9 % (36.0-47.0) Mean Corpuscular Volume 93 fL (79-100) 93 fL (79-100) Mean Corpuscular Hemoglobin 32 pg (25-35) 31 pg (25-35) Mean Corpuscular Hemoglobin Concent 35 g/dL (31-37) 34 g/dL (31-37) Red Cell Distribution Width 15.5 % (11.5-14.5) 15.3 % (11.5-14.5) Platelet Count 234 x10^3/uL (140-400) 219 x10^3/uL (140-400) Neutrophils (%) (Auto) 67 % (31-73) 70 % (31-73) Lymphocytes (%) (Auto) 23 % (24-48) 19 % (24-48) Monocytes (%) (Auto) 7 % (0-9) 6 % (0-9) Eosinophils (%) (Auto) 4 % (0-3) 4 % (0-3) Basophils (%) (Auto) 1 % (0-3) 0 % (0-3) Neutrophils # (Auto) 6.3 x10^3uL (1.8-7.7) 5.7 x10^3uL (1.8-7.7) Lymphocytes # (Auto) 2.1 x10^3/uL (1.0-4.8) 1.5 x10^3/uL (1.0-4.8) Monocytes # (Auto) 0.6 x10^3/uL (0.0-1.1) 0.5 x10^3/uL (0.0-1.1) Eosinophils # (Auto) 0.4 x10^3/uL (0.0-0.7) 0.4 x10^3/uL (0.0-0.7) Basophils # (Auto) 0.0 x10^3/uL (0.0-0.2) 0.0 x10^3/uL (0.0-0.2) Creatine Kinase 17 U/L (26-192) Procalcitonin < 0.10 ng/mL (0.00-0.10) Laboratory Tests Test 09/29/18 19:35 09/29/18 20:35 09/30/18 03:35 Sodium Level 139 mmol/L (136-145) 140 mmol/L (136-145) Potassium Level 4.2 mmol/L (3.5-5.1) 4.2 mmol/L (3.5-5.1) Chloride Level 104 mmol/L (98-107) 105 mmol/L (98-107) Carbon Dioxide Level 26 mmol/L (21-32) 27 mmol/L (21-32) Anion Gap 9 (6-14) 8 (6-14) Blood Urea Nitrogen 14 mg/dL (7-20) 14 mg/dL (7-20) Creatinine 0.6 mg/dL (0.6-1.0) 0.8 mg/dL (0.6-1.0) Estimated GFR (Cockcroft-Gault) 119.9 86.0 BUN/Creatinine Ratio 23 (6-20) 18 (6-20) Glucose Level 80 mg/dL (70-99) 84 mg/dL (70-99) Calcium Level 9.0 mg/dL (8.5-10.1) 8.8 mg/dL (8.5-10.1) Total Bilirubin 0.2 mg/dL (0.2-1.0) 0.5 mg/dL (0.2-1.0) Aspartate Amino Transf (AST/SGOT) 11 U/L (15-37) 10 U/L (15-37) Alanine Aminotransferase (ALT/SGPT) 18 U/L (14-59) 15 U/L (14-59) Alkaline Phosphatase 91 U/L (46-116) 80 U/L (46-116) C-Reactive Protein, Quantitative 49.8 mg/L (0-3.3) Total Protein 8.1 g/dL (6.4-8.2) 7.3 g/dL (6.4-8.2) Albumin 3.2 g/dL (3.4-5.0) 2.8 g/dL (3.4-5.0) Albumin/Globulin Ratio 0.7 (1.0-1.7) 0.6 (1.0-1.7) Serum Test, Qualitative Negative (NEG) White Blood Count 9.5 x10^3/uL (4.0-11.0) 8.1 x10^3/uL (4.0-11.0) Red Blood Count 3.12 x10^6/uL (3.50-5.40) 3.01 x10^6/uL (3.50-5.40) Hemoglobin 10.0 g/dL (12.0-15.5) 9.4 g/dL (12.0-15.5) Hematocrit 29.0 % (36.0-47.0) 27.9 % (36.0-47.0) Mean Corpuscular Volume 93 fL (79-100) 93 fL (79-100) Mean Corpuscular Hemoglobin 32 pg (25-35) 31 pg (25-35) Mean Corpuscular Hemoglobin Concent 35 g/dL (31-37) 34 g/dL (31-37) Red Cell Distribution Width 15.5 % (11.5-14.5) 15.3 % (11.5-14.5) Platelet Count 234 x10^3/uL (140-400) 219 x10^3/uL (140-400) Neutrophils (%) (Auto) 67 % (31-73) 70 % (31-73) Lymphocytes (%) (Auto) 23 % (24-48) 19 % (24-48) Monocytes (%) (Auto) 7 % (0-9) 6 % (0-9) Eosinophils (%) (Auto) 4 % (0-3) 4 % (0-3) Basophils (%) (Auto) 1 % (0-3) 0 % (0-3) Neutrophils # (Auto) 6.3 x10^3uL (1.8-7.7) 5.7 x10^3uL (1.8-7.7) Lymphocytes # (Auto) 2.1 x10^3/uL (1.0-4.8) 1.5 x10^3/uL (1.0-4.8) Monocytes # (Auto) 0.6 x10^3/uL (0.0-1.1) 0.5 x10^3/uL (0.0-1.1) Eosinophils # (Auto) 0.4 x10^3/uL (0.0-0.7) 0.4 x10^3/uL (0.0-0.7) Basophils # (Auto) 0.0 x10^3/uL (0.0-0.2) 0.0 x10^3/uL (0.0-0.2) Creatine Kinase 17 U/L (26-192) Procalcitonin < 0.10 ng/mL (0.00-0.10) Medications Current Medications Vancomycin HCl (Vanco Per Pharmacy) 1 each PRN DAILY PRN MC SEE COMMENTS Last administered on 09/30/18at 03:18; Start 09/29/18 at 21:00 Vancomycin HCl 2 gm/Sodium Chloride 500 ml @ 250 mls/hr 1X ONCE IV Last administered on 09/29/18at 21:05; Start 09/29/18 at 21:30; Stop 09/29/18 at 23:29; Status DC Ondansetron HCl (Zofran) 4 mg PRN Q8HRS PRN IV NAUSEA/VOMITING; Start 09/29/18 at 21:45; Stop 09/30/18 at 21:44 Sodium Chloride 1,000 ml @ 125 mls/hr Q8H IV Last administered on 09/30/18at 07: 52; Start 09/29/18 at 21:32; Stop 09/30/18 at 21:31 Linezolid/Dextrose 300 ml @ 300 mls/hr Q12HR IV Last administered on 09/30/18at 09:38; Start 09/29/18 at 22:30; Stop 09/30/18 at 10:48; Status DC Piperacillin Sod/ Tazobactam Sod (Zosyn Per Pharmacy) 1 each PRN DAILY PRN MC SEE COMMENTS; Start 09/29/18 at 21:45 Piperacillin Sod/ Tazobactam Sod 4.5 gm/Sodium Chloride 100 ml @ 200 mls/hr Q6HRS IV Last administered on 09/30/18at 07:52; Start 09/30/18 at 00:00 Ketorolac Tromethamine (Toradol 30mg Vial) 30 mg PRN Q8HRS PRN IV MODERATE PAIN Last administered on 09/30/18at 09:38; Start 09/29/18 at 22:45; Stop 10/04/18 at 22:44 Meloxicam (Mobic) 7.5 mg DAILY PO Last administered on 09/30/18at 09:36; Start at 09:00 Mirtazapine (Remeron) 15 mg QHS PO Last administered on 09/30/18at 00:01; Start 09/29/18 at 23:30 Vancomycin HCl 1.25 gm/Sodium Chloride 250 ml @ 167 mls/hr Q8H IV Last administered on 09/30/18at 05:33; Start 09/30/18 at 05:00 Vancomycin HCl (Vancomycin Trough Level) 1 each 1X ONCE MC ; Start 09/30/18 at 20:30; Stop 09/30/18 at 20:31 Lactobacillus Rhamnosus (Culturelle) 1 cap BID PO Last administered on at 09:36; Start 09/30/18 at 09:00 Active Scripts Active [place] 5-325 Tablet (Acetaminophen/Hydrocodone Bitart) 1 Each Tablet 1-2 Each PO PRN Q6HRS PRN as needed for pain Meloxicam 7.5 Mg Tablet 7.5 Mg PO DAILY Percocet 10-325 Mg Tablet (Oxycodone/Acetaminophen) 1 Each Tablet 1 Tab PO PRN Q4HRS PRN Reported Ibuprofen 800 Mg Tablet 800 Mg PO PRN Q6HRS PRN Vitals/I & O Vital Sign - Last 24 Hours 09/29/18 09/29/18 09/29/18 09/29/18 19:12 19:29 21:38 21:45 Temp 97.6 98.5 97.6 98.5 Pulse 60 70 79 Resp 18 18 18 B/P (MAP) 130/59 (82) 117/63 (81) 115/63 (80) Pulse Ox 100 98 100 O2 Delivery Room Air Room Air Room Air Room Air 09/30/18 09/30/18 09/30/18 03:00 07:00 11:00 Temp 98.1 97.4 98.3 98.1 97.4 98.3 Pulse 60 70 61 Resp 18 16 16 B/P (MAP) 99/44 (62) 106/54 (71) 97/47 (64) Pulse Ox 95 96 96 O2 Delivery Room Air Room Air Room Air Intake and Output 09/29/18 09/29/18 09/30/18 15:01 23:01 07:01 Intake Total 900 ml Balance 900 ml JREED BARILLAS MD Sep 30, 2018 12:41
[2018-09-30 15:00] VITALS: BP 108/64
[2018-09-30 19:00] VITALS: BP 106/39
[2018-09-30 21:37] LABS: VANC TR 19.1 mcg/mL (10.0-20.0)
--- NOTE | 2018-09-30 21:49 | NUR ---
Pharmacy Vancomycin Dosing Note S: Consulted to monitor and dose vancomycin started 09/29/18. O: RENE CONTRERAS is a 28 year old F with Bacteremia . Other Antibiotics: ZOSYN 4.5G IV Q6HRS LABS: Last BUN: 18 Last Creatinine: 0.8 Creatinine Clearance: >100 mL/min Last WBC: 8.1 Last Platelets: 219 Tmax (past 24 hours): 98.5 Microbiology: BLOOD CX (09/27 ER VISIT): [facility] Drug Levels: Last Trough level: 19.1 on 09/30/18 at 2030 Last dose given 09/30/18 at 1300 Dosing Weight: Actual Target Trough: 15-20 A: Based on: TROUGH = 19.1 P: 1. Continue Vancomycin 1250 mg IV q8h 2. Follow up Trough level in 5-7 days or if renal function changes. 3. Pharmacy will continue to monitor, follow and adjust therapy as needed. JANEL LYNCH RPH, 09/30/18 [id number]
[2018-09-30 23:00] VITALS: BP 108/38
[2018-10-01] MEDS: PIPERACILLIN/TAZOBACTAM 4.5 GM in IV NORMAL SALINE 100ML 100 ML IV SCH ×2 (00:33→05:39)
[2018-10-01 03:00] VITALS: BP 114/68
[2018-10-01] MEDS: VANCOMYCIN 1.25 GM in IV NORMAL SALINE 250ML 250 ML IV SCH ×3 (05:39→20:47)
[2018-10-01 07:26] LABS: CALCIUM 8.3 mg/dL (8.5-10.1); CREATININE 0.9 mg/dL (0.6-1.0); GFR 75.1; POTASSIUM 4.1 mmol/L (3.5-5.1)
[2018-10-01 07:30] VITALS: BP 108/56
--- NOTE | 2018-10-01 08:57 | PDOC ---
Infectious Disease Note Subjective Subjective Known to service please see consult dated 09/08 and last progress note 09/17. Has been on outpatient Dapto and has missed one dose. Had been ok but has been having night sweats and occ chills. Appetite ok. No ill contacts No STERLING/Vision change/Sore throat/SOA/N/V/D/dysuria/frequency generalized ache/ rash or joint issues Presented to ER on 09/27 with Chest pain. Blood cults obtained. CP rapidly resolved. Different pain than that associated with previous chest swelling. Was d/c;d home but called back with + blood cults Currently feeling well. Slept well. No F/C/S/N/VSOA/Rash/D and chest pain is less Vital Sign Vital Signs Vital Signs Date Time Temp Pulse Resp B/P (MAP) Pulse Ox O2 Delivery O2 Flow Rate FiO2 10/01/18 07:30 98.1 56 18 108/56 (73) 100 Room Air 98.1 Physical Exam PHYSICAL EXAM GENERAL: Propped up in bed,Coop, NAD HEENT: Normal conjunctivae. Oral cavity, pharynx is clear. NECK: Supple. Good range of motion. LUNGS: Clear to auscultation. HEART: S1, S2. no gross murmur Chest - min in any discomfort left mid area but no swelling/erythema/warmth/ fluctuance ABDOMEN: Soft, nontender, nondistended with positive bowel sounds. EXTREMITIES: Left hip over trochanteric and gluteal nontender. wound is clean and healed. No erythema/warmth or fluctuance.- Good ROM. There is no left arm, axillary/upper chest area swelling RUE antecubital wound - healed SKIN: Warm to touch without signs of rash. Tattoos. NEUROLOGIC: Alert, responds appropriately PICC LUE ok Labs Lab Laboratory Tests Test 09/30/18 20:45 10/01/18 05:50 Vancomycin Level Trough 19.1 mcg/mL (10.0-20.0) Vancomycin Last Dose Date 09/30/18 Vancomycin Last Dose Time 1300 Sodium Level 141 mmol/L (136-145) Potassium Level 4.1 mmol/L (3.5-5.1) Chloride Level 108 mmol/L (98-107) Carbon Dioxide Level 25 mmol/L (21-32) Anion Gap 8 (6-14) Blood Urea Nitrogen 16 mg/dL (7-20) Creatinine 0.9 mg/dL (0.6-1.0) Estimated GFR (Cockcroft-Gault) 75.1 Glucose Level 86 mg/dL (70-99) Calcium Level 8.3 mg/dL (8.5-10.1) Micro Microbiology 09/29/18 Blood Culture - Preliminary, Resulted NO GROWTH AFTER 1 DAY Objective Assessment Bacteremia 09/27/2018 s/w lap parker this am - Staph species but ? which type. ? Line infection vs contamination H/o MRSA sepsis/Bacteremia 09/08 and 09/09 MRSA,,, neg bc 09/10 and 09/13 Left hip pain - XRAY neg but MRI + for abscess s/p I and D 09/13 Chest pain - left upper chest pain/fullness - likely infection, though no definite abscess improved on CTA 09/27 Left axillary fullness better R antecubital wound is healed + substance abuse -denies use since discharge Plan Plan of Care Cont Vanc but d/c zosyn F/u cults - d/w lab parker this am and no further info on cults from 09/27 F/u repeat cults pending Will need ANASTACIO is staph is Staph aureus from 09/27 May need PICC removed F/u labs GRIFFIN AMES MD Oct 01, 2018 08:57
[2018-10-01] MEDS: MELOXICAM 7.5 MG TABLET PO SCH (09:17)
[2018-10-01] MEDS: LACTOBACILLUS RHAMNOSUS GG 1 CAPSULE. PO SCH ×2 (09:17→20:57)
[2018-10-01 12:34] VITALS: BP 122/53
[2018-10-01] MEDS: VANCOMYCIN PER PHARMACY MC PRN (13:46)
[2018-10-01] MEDS: KETOROLAC 30 MG/ML VIAL. IV PRN ×2 (13:57→20:57)
[2018-10-01 15:06] VITALS: BP 133/78
--- NOTE | 2018-10-01 16:29 | NUR ---
SW following for dc planning. Discussed with RN, RN advised no SW needs at this time. Pt discharge 09/18/18 with More SALINAS and [place] infusion. SW will continue to follow.
--- NOTE | 2018-10-01 16:44 | PDOC ---
PROGRESS NOTES Chief Complaint Chief Complaint no fevers. doing well. no complaints. History of Present Illness History of Present Illness Assessment Staph and GNR Bactermia: cultures 09/27 growing Staph but not known speciation. blood culture now growing GNR. suspect Line infection H/o MRSA sepsis/Bacteremia 09/08 and 09/09 MRSA, neg bc 09/10 and 09/13 Left hip pain - XRAY neg but MRI + for abscess s/p I and D 09/13 and discharged with IV dapto with PICC on 09/17 Chest pain -no definite abscess; improved on CTA 09/27. seen by cardiothoracic sx last admission and no surgical intervention + substance abuse Anemia Plan apprec ID Cont Vanc and zosyn. linezolid dc per ID cultures 09/30: GNR no info from cults 09/27 repeat blood cultures 10/01 remove PICC Hb stable at 9.4 Vitals Vitals Vital Signs Date Time Temp Pulse Resp B/P (MAP) Pulse Ox O2 Delivery O2 Flow Rate FiO2 10/01/18 15:06 98.1 60 20 133/78 (96) 98 Room Air 98.1 Physical Exam Physical Exam GENERAL: Propped up in bed,Coop, NAD HEENT: Normal conjunctivae. Oral cavity, pharynx is clear. NECK: Supple. Good range of motion. LUNGS: Clear to auscultation. HEART: S1, S2. no gross murmur Chest - min in any discomfort left mid area but no swelling/erythema/warmth/ fluctuance ABDOMEN: Soft, nontender, nondistended with positive bowel sounds. EXTREMITIES: Left hip over trochanteric and gluteal nontender. wound is clean and healed. No erythema/warmth or fluctuance.- Good ROM. There is no left arm, axillary/upper chest area swelling RUE antecubital wound - healed SKIN: Warm to touch without signs of rash. Tattoos. NEUROLOGIC: Alert, responds appropriately PICC LUE ok Lungs: Clear Extremities: Other ( Left hip over trochanteric and gluteal nontender. wound is clean and healed. No erythema/warmth or fluctuance. no left arm, axillary/ upper chest area swelling) Labs LABS Laboratory Tests Test 09/30/18 20:45 10/01/18 05:50 Vancomycin Level Trough 19.1 mcg/mL (10.0-20.0) Vancomycin Last Dose Date 09/30/18 Vancomycin Last Dose Time 1300 Sodium Level 141 mmol/L (136-145) Potassium Level 4.1 mmol/L (3.5-5.1) Chloride Level 108 mmol/L (98-107) Carbon Dioxide Level 25 mmol/L (21-32) Anion Gap 8 (6-14) Blood Urea Nitrogen 16 mg/dL (7-20) Creatinine 0.9 mg/dL (0.6-1.0) Estimated GFR (Cockcroft-Gault) 75.1 Glucose Level 86 mg/dL (70-99) Calcium Level 8.3 mg/dL (8.5-10.1) Comment Review of Relevant I have reviewed the following items rima (where applicable) has been applied. Labs Laboratory Tests Test 09/29/18 19:35 09/29/18 20:35 09/30/18 03:35 09/30/18 20:45 Sodium Level 139 mmol/L (136-145) 140 mmol/L (136-145) Potassium Level 4.2 mmol/L (3.5-5.1) 4.2 mmol/L (3.5-5.1) Chloride Level 104 mmol/L (98-107) 105 mmol/L (98-107) Carbon Dioxide Level 26 mmol/L (21-32) 27 mmol/L (21-32) Anion Gap 9 (6-14) 8 (6-14) Blood Urea Nitrogen 14 mg/dL (7-20) 14 mg/dL (7-20) Creatinine 0.6 mg/dL (0.6-1.0) 0.8 mg/dL (0.6-1.0) Estimated GFR (Cockcroft-Gault) 119.9 86.0 BUN/Creatinine Ratio 23 (6-20) 18 (6-20) Glucose Level 80 mg/dL (70-99) 84 mg/dL (70-99) Calcium Level 9.0 mg/dL (8.5-10.1) 8.8 mg/dL (8.5-10.1) Total Bilirubin 0.2 mg/dL (0.2-1.0) 0.5 mg/dL (0.2-1.0) Aspartate Amino Transf (AST/SGOT) 11 U/L (15-37) 10 U/L (15-37) Alanine Aminotransferase (ALT/SGPT) 18 U/L (14-59) 15 U/L (14-59) Alkaline Phosphatase 91 U/L (46-116) 80 U/L (46-116) C-Reactive Protein, Quantitative 49.8 mg/L (0-3.3) Total Protein 8.1 g/dL (6.4-8.2) 7.3 g/dL (6.4-8.2) Albumin 3.2 g/dL (3.4-5.0) 2.8 g/dL (3.4-5.0) Albumin/Globulin Ratio 0.7 (1.0-1.7) 0.6 (1.0-1.7) Serum Test, Qualitative Negative (NEG) White Blood Count 9.5 x10^3/uL (4.0-11.0) 8.1 x10^3/uL (4.0-11.0) Red Blood Count 3.12 x10^6/uL (3.50-5.40) 3.01 x10^6/uL (3.50-5.40) Hemoglobin 10.0 g/dL (12.0-15.5) 9.4 g/dL (12.0-15.5) Hematocrit 29.0 % (36.0-47.0) 27.9 % (36.0-47.0) Mean Corpuscular Volume 93 fL (79-100) 93 fL (79-100) Mean Corpuscular Hemoglobin 32 pg (25-35) 31 pg (25-35) Mean Corpuscular Hemoglobin Concent 35 g/dL (31-37) 34 g/dL (31-37) Red Cell Distribution Width 15.5 % (11.5-14.5) 15.3 % (11.5-14.5) Platelet Count 234 x10^3/uL (140-400) 219 x10^3/uL (140-400) Neutrophils (%) (Auto) 67 % (31-73) 70 % (31-73) Lymphocytes (%) (Auto) 23 % (24-48) 19 % (24-48) Monocytes (%) (Auto) 7 % (0-9) 6 % (0-9) Eosinophils (%) (Auto) 4 % (0-3) 4 % (0-3) Basophils (%) (Auto) 1 % (0-3) 0 % (0-3) Neutrophils # (Auto) 6.3 x10^3uL (1.8-7.7) 5.7 x10^3uL (1.8-7.7) Lymphocytes # (Auto) 2.1 x10^3/uL (1.0-4.8) 1.5 x10^3/uL (1.0-4.8) Monocytes # (Auto) 0.6 x10^3/uL (0.0-1.1) 0.5 x10^3/uL (0.0-1.1) Eosinophils # (Auto) 0.4 x10^3/uL (0.0-0.7) 0.4 x10^3/uL (0.0-0.7) Basophils # (Auto) 0.0 x10^3/uL (0.0-0.2) 0.0 x10^3/uL (0.0-0.2) Creatine Kinase 17 U/L (26-192) Procalcitonin < 0.10 ng/mL (0.00-0.10) Vancomycin Level Trough 19.1 mcg/mL (10.0-20.0) Vancomycin Last Dose Date 09/30/18 Vancomycin Last Dose Time 1300 Test 10/01/18 05:50 Sodium Level 141 mmol/L (136-145) Potassium Level 4.1 mmol/L (3.5-5.1) Chloride Level 108 mmol/L (98-107) Carbon Dioxide Level 25 mmol/L (21-32) Anion Gap 8 (6-14) Blood Urea Nitrogen 16 mg/dL (7-20) Creatinine 0.9 mg/dL (0.6-1.0) Estimated GFR (Cockcroft-Gault) 75.1 Glucose Level 86 mg/dL (70-99) Calcium Level 8.3 mg/dL (8.5-10.1) Laboratory Tests Test 09/30/18 20:45 10/01/18 05:50 Vancomycin Level Trough 19.1 mcg/mL (10.0-20.0) Vancomycin Last Dose Date 09/30/18 Vancomycin Last Dose Time 1300 Sodium Level 141 mmol/L (136-145) Potassium Level 4.1 mmol/L (3.5-5.1) Chloride Level 108 mmol/L (98-107) Carbon Dioxide Level 25 mmol/L (21-32) Anion Gap 8 (6-14) Blood Urea Nitrogen 16 mg/dL (7-20) Creatinine 0.9 mg/dL (0.6-1.0) Estimated GFR (Cockcroft-Gault) 75.1 Glucose Level 86 mg/dL (70-99) Calcium Level 8.3 mg/dL (8.5-10.1) Microbiology 09/29/18 Blood Culture - Preliminary, Resulted NO GROWTH AFTER 1 DAY Medications Current Medications Vancomycin HCl (Vanco Per Pharmacy) 1 each PRN DAILY PRN MC SEE COMMENTS Last administered on 10/01/18at 13:46; Start 09/29/18 at 21:00 Vancomycin HCl 2 gm/Sodium Chloride 500 ml @ 250 mls/hr 1X ONCE IV Last administered on 09/29/18at 21:05; Start 09/29/18 at 21:30; Stop 09/29/18 at 23:29; Status DC Ondansetron HCl (Zofran) 4 mg PRN Q8HRS PRN IV NAUSEA/VOMITING; Start 09/29/18 at 21:45; Stop 09/30/18 at 21:44; Status DC Sodium Chloride 1,000 ml @ 125 mls/hr Q8H IV Last administered on 09/30/18at 13: 32; Start 09/29/18 at 21:32; Stop 09/30/18 at 21:31; Status DC Linezolid/Dextrose 300 ml @ 300 mls/hr Q12HR IV Last administered on 09/30/18at 09:38; Start 09/29/18 at 22:30; Stop 09/30/18 at 10:48; Status DC Piperacillin Sod/ Tazobactam Sod (Zosyn Per Pharmacy) 1 each PRN DAILY PRN MC SEE COMMENTS; Start 09/29/18 at 21:45; Stop 10/01/18 at 08:57; Status DC Piperacillin Sod/ Tazobactam Sod 4.5 gm/Sodium Chloride 100 ml @ 200 mls/hr Q6HRS IV Last administered on 10/01/18at 05:39; Start 09/30/18 at 00:00; Stop 07/10 at 08:57; Status DC Ketorolac Tromethamine (Toradol 30mg Vial) 30 mg PRN Q8HRS PRN IV MODERATE PAIN Last administered on 10/01/18 13:57; Start 09/29/18 at 22:45; Stop at 22:44 Meloxicam (Mobic) 7.5 mg DAILY PO Last administered on 10/01/18 09:17; Start 09/30/18 at 09:00 Mirtazapine (Remeron) 15 mg QHS PO Last administered on 09/30/18at 22:28; Start 09/29/18 at 23:30 Vancomycin HCl 1.25 gm/Sodium Chloride 250 ml @ 167 mls/hr Q8H IV Last administered on 10/01/18 13:57; Start 09/30/18 at 05:00 Vancomycin HCl (Vancomycin Trough Level) 1 each 1X ONCE MC Last administered on 09/30/18at 20:30; Start 09/30/18 at 20:30; Stop 09/30/18 at 20:31; Status DC Lactobacillus Rhamnosus (Culturelle) 1 cap BID PO Last administered on 09:17; Start 09/30/18 at 09:00 Active Scripts Active [place] 5-325 Tablet (Acetaminophen/Hydrocodone Bitart) 1 Each Tablet 1-2 Each PO PRN Q6HRS PRN as needed for pain Meloxicam 7.5 Mg Tablet 7.5 Mg PO DAILY Percocet 10-325 Mg Tablet (Oxycodone/Acetaminophen) 1 Each Tablet 1 Tab PO PRN Q4HRS PRN Reported Ibuprofen 800 Mg Tablet 800 Mg PO PRN Q6HRS PRN Vitals/I & O Vital Sign - Last 24 Hours 09/30/18 09/30/18 09/30/18 10/01/18 19:00 20:00 23:00 03:00 Temp 98.5 98.6 98.2 98.5 98.6 98.2 Pulse 65 58 56 Resp 16 16 16 B/P (MAP) 106/39 (61) 108/38 (61) 114/68 (83) Pulse Ox 97 98 93 O2 Delivery Room Air Room Air Room Air Room Air 10/01/18 10/01/18 10/01/18 10/01/18 07:30 08:15 11:00 12:34 Temp 98.1 97.9 98.1 97.9 Pulse 56 58 Resp 18 18 B/P (MAP) 108/56 (73) 122/53 (76) Pulse Ox 100 97 O2 Delivery Room Air Room Air Room Air Room Air 10/01/18 15:06 Temp 98.1 98.1 Pulse 60 Resp 20 B/P (MAP) 133/78 (96) Pulse Ox 98 O2 Delivery Room Air Intake and Output 09/30/18 09/30/18 10/01/18 15:01 23:01 07:01 Intake Total 250 ml Balance 250 ml JERED BARILLSA MD Oct 01, 2018 16:44
[2018-10-01 19:00] VITALS: BP 106/82
--- NOTE | 2018-10-01 19:23 | NUR ---
Pt's PICC line removed per and , no complications, pt tolerated well, arm elevated, direct pressure followed by pressure dressing applied, new IV started by Nilsa HICKMAN, blood cultures ordered for the AM, pt resting comfortably.
[2018-10-01] MEDS: MIRTAZAPINE 15 MG TABLET PO SCH (20:47)
[2018-10-01 23:00] VITALS: BP 105/57
[2018-10-02 03:00] VITALS: BP 113/65
[2018-10-02 06:01] LABS: CREATININE 0.8 mg/dL (0.6-1.0)
[2018-10-02] MEDS: VANCOMYCIN 1.25 GM in IV NORMAL SALINE 250ML 250 ML IV SCH ×3 (06:02→21:04)
[2018-10-02 07:00] VITALS: BP 123/71
[2018-10-02] MEDS ORDERED: ACETAMINOPHEN 500 MG TABLET PO PRN (09:30)
[2018-10-02] MEDS ORDERED: IBUPROFEN 400 MG TABLET. PO PRN (09:30)
[2018-10-02] MEDS ORDERED: diphenhydrAMINE HCL 25 MG CAPSULE PO PRN (09:30)
[2018-10-02] MEDS ORDERED: ONDANSETRON PF 4 MG/2 ML VIAL. IV PRN ×2 (09:30→11:15)
[2018-10-02] MEDS: CEFEPIME HCL IV Push 2 GM VIAL. IVP SCH ×3 (09:30→21:04)
[2018-10-02] MEDS: MELOXICAM 7.5 MG TABLET PO SCH (09:47)
[2018-10-02] MEDS: ACETAMINOPHEN/CODEINE 300/30MG TABLET. PO PRN ×2 (09:47→18:29)
[2018-10-02] MEDS: LACTOBACILLUS RHAMNOSUS GG 1 CAPSULE. PO SCH ×2 (09:47→21:03)
--- NOTE | 2018-10-02 09:59 | PDOC ---
Infectious Disease Note Subjective Subjective Known to service please see consult dated 09/08 and last progress note 09/17. Has been on outpatient Dapto and has missed one dose. Had been ok but has been having night sweats and occ chills. Appetite ok. No ill contacts No STERLING/Vision change/Sore throat/SOA/N/V/D/dysuria/frequency generalized ache/ rash or joint issues Presented to ER on 09/27 with Chest pain. Blood cults obtained. CP rapidly resolved. Different pain than that associated with previous chest swelling. Was d/c;d home but called back with + blood cults Currently feeling well. Having some GERD. Slept well. No F/C/S/N/VSOA/Rash/D and chest pain is less Vital Sign Vital Signs Vital Signs Date Time Temp Pulse Resp B/P (MAP) Pulse Ox O2 Delivery O2 Flow Rate FiO2 10/02/18 07:00 98.2 45 15 123/71 (88) 98 Room Air 98.2 Physical Exam PHYSICAL EXAM GENERAL: Propped up in bed,Coop, NAD HEENT: Normal conjunctivae. Oral cavity, pharynx is clear. NECK: Supple. Good range of motion. LUNGS: Clear to auscultation. HEART: S1, S2. no gross murmur Chest - min in any discomfort left mid area but no swelling/erythema/warmth/ fluctuance ABDOMEN: Soft, nontender, nondistended with positive bowel sounds. EXTREMITIES: Left hip over trochanteric and gluteal nontender. wound is clean and healed. No erythema/warmth or fluctuance.- Good ROM. There is no left arm, axillary/upper chest area swelling RUE antecubital wound - healed SKIN: Warm to touch without signs of rash. Tattoos. NEUROLOGIC: Alert, responds appropriately PICC LUE ok Labs Lab Laboratory Tests Test 10/02/18 04:50 Creatinine 0.8 mg/dL (0.6-1.0) Estimated GFR (Cockcroft-Gault) 86.0 Micro Microbiology 09/29/18 Blood Culture - Preliminary, Resulted NO GROWTH AFTER 1 DAY Objective Assessment MRSA Bacteremia 09/27/2018 GNR bacteremia 09/29 H/o MRSA sepsis/Bacteremia 09/08 and 09/09 MRSA,,, neg bc 09/10 and 09/13 Left hip pain - XRAY neg but MRI + for abscess s/p I and D 09/13 Chest pain - left upper chest pain/fullness - likely infection, though no definite abscess improved on CTA 09/27 Left axillary fullness better R antecubital wound is healed + substance abuse -denies use since discharge Plan Plan of Care Cont Vanc PICC d/c 10/01 d/w nursing and was informed Zosyn was continued Begin Cefepime this am Repeat Blood cult now that PICC is out F/u repeat cults pending Will need ANASTACIO - consult placed F/u labs GRIFFIN AMES MD Oct 02, 2018 09:59
[2018-10-02] MEDS: FAMOTIDINE 20 MG TABLET. PO SCH ×2 (10:00→21:03)
--- NOTE | 2018-10-02 10:10 | NUR ---
Pt informed of ANASTACIO procedure to be done at 3pm today, and to remain NPO until that time.
--- NOTE | 2018-10-02 10:20 | PDOC ---
Provider Note Provider Note 10/02/2018 1010 Pt is AOx3 and in no distress. Pt has been noted with bacteremia. ID has requested ANASTACIO to rule out endocarditis. Pt does not have any hx of esophageal anomaly. ANASTACIO at 3 PM. Last meal at 8 AM. NPO. Discussed risk and benefits and agreeable to proceed. POLLY HALL APRN Oct 02, 2018 10:20
--- NOTE | 2018-10-02 10:51 | PDOC ---
PROGRESS NOTES Chief Complaint Chief Complaint no fevers. doing well. no complaints. Has right IV peripheral line Previous he had a left PICC line-had some swelling Plan: We'll be here over the weekend, speciation is still pending So far no picc plans follow ID recs History of Present Illness History of Present Illness Assessment Staph and GNR Bactermia: cultures 09/27 growing Staph but not known speciation. blood culture now growing GNR. suspect Line infection H/o MRSA sepsis/Bacteremia 09/08 and 09/09 MRSA, neg bc 09/10 and 09/13 Left hip pain - XRAY neg but MRI + for abscess s/p I and D 09/13 and discharged with IV dapto with PICC on 09/17 Chest pain -no definite abscess; improved on CTA 09/27. seen by cardiothoracic sx last admission and no surgical intervention + substance abuse Anemia Vitals Vitals Vital Signs Date Time Temp Pulse Resp B/P (MAP) Pulse Ox O2 Delivery O2 Flow Rate FiO2 10/02/18 07:00 98.2 45 15 123/71 (88) 98 Room Air 98.2 Physical Exam Physical Exam GENERAL: Propped up in bed,Coop, NAD HEENT: Normal conjunctivae. Oral cavity, pharynx is clear. NECK: Supple. Good range of motion. LUNGS: Clear to auscultation. HEART: S1, S2. no gross murmur Chest - min in any discomfort left mid area but no swelling/erythema/warmth/ fluctuance ABDOMEN: Soft, nontender, nondistended with positive bowel sounds. EXTREMITIES: Left hip over trochanteric and gluteal nontender. wound is clean and healed. No erythema/warmth or fluctuance.- Good ROM. There is no left arm, axillary/upper chest area swelling RUE antecubital wound - healed SKIN: Warm to touch without signs of rash. Tattoos. NEUROLOGIC: Alert, responds appropriately PICC LUE ok General: Alert, Oriented X3, Cooperative, No acute distress Heart: Regular rate, Normal S1, Normal S2, No murmurs Lungs: Clear Abdomen: Normal bowel sounds, Soft, No tenderness Extremities: No clubbing, No cyanosis, No edema, Other ( Left hip over trochanteric and gluteal nontender. wound is clean and healed. No erythema/ warmth or fluctuance. no left arm, axillary/upper chest area swelling) Skin: No rashes, No breakdown, No significant lesion Labs LABS Laboratory Tests Test 10/02/18 04:50 Creatinine 0.8 mg/dL (0.6-1.0) Estimated GFR (Cockcroft-Gault) 86.0 Review of Systems Review of Systems A 14 point ROS was completed with the following noted as positive: Other systems reviewed and negative. \CONSTITUTIONAL: No fever or chills EYES: No recent changes SKIN: No rash or itching CARDIOVASCULAR: No chest pain, syncope, palpitations, or edema RESPIRATORY: No SOB or cough GASTROINTESTINAL: No nausea, vomiting or abdominal pain NEUROLOGICAL: No headaches or weakness ENDOCRINE: No cold or heat intolerance GENITOURINARY: No urgency or frequency of urination MUSCULOSKELETAL: No back pain or joint pain LYMPHATICS: No enlarged lymph nodes PSYCHIATRIC: No anxiety or depression Comment Review of Relevant I have reviewed the following items rima (where applicable) has been applied. Labs Laboratory Tests Test 09/30/18 20:45 10/01/18 05:50 10/02/18 04:50 Vancomycin Level Trough 19.1 mcg/mL (10.0-20.0) Vancomycin Last Dose Date 09/30/18 Vancomycin Last Dose Time 1300 Sodium Level 141 mmol/L (136-145) Potassium Level 4.1 mmol/L (3.5-5.1) Chloride Level 108 mmol/L (98-107) Carbon Dioxide Level 25 mmol/L (21-32) Anion Gap 8 (6-14) Blood Urea Nitrogen 16 mg/dL (7-20) Creatinine 0.9 mg/dL (0.6-1.0) 0.8 mg/dL (0.6-1.0) Estimated GFR (Cockcroft-Gault) 75.1 86.0 Glucose Level 86 mg/dL (70-99) Calcium Level 8.3 mg/dL (8.5-10.1) Laboratory Tests Test 10/02/18 04:50 Creatinine 0.8 mg/dL (0.6-1.0) Estimated GFR (Cockcroft-Gault) 86.0 Microbiology 09/29/18 Blood Culture - Preliminary, Resulted NO GROWTH AFTER 2 DAYS Medications Current Medications Vancomycin HCl (Vanco Per Pharmacy) 1 each PRN DAILY PRN MC SEE COMMENTS Last administered on 10/01/18at 13:46; Start 09/29/18 at 21:00 Vancomycin HCl 2 gm/Sodium Chloride 500 ml @ 250 mls/hr 1X ONCE IV Last administered on 09/29/18at 21:05; Start 09/29/18 at 21:30; Stop 09/29/18 at 23:29; Status DC Ondansetron HCl (Zofran) 4 mg PRN Q8HRS PRN IV NAUSEA/VOMITING; Start 09/29/18 at 21:45; Stop 09/30/18 at 21:44; Status DC Sodium Chloride 1,000 ml @ 125 mls/hr Q8H IV Last administered on 09/30/18at 13: 32; Start 09/29/18 at 21:32; Stop 09/30/18 at 21:31; Status DC Linezolid/Dextrose 300 ml @ 300 mls/hr Q12HR IV Last administered on 09/30/18at 09:38; Start 09/29/18 at 22:30; Stop 09/30/18 at 10:48; Status DC Piperacillin Sod/ Tazobactam Sod (Zosyn Per Pharmacy) 1 each PRN DAILY PRN MC SEE COMMENTS; Start 09/29/18 at 21:45; Stop 10/01/18 at 08:57; Status DC Piperacillin Sod/ Tazobactam Sod 4.5 gm/Sodium Chloride 100 ml @ 200 mls/hr Q6HRS IV Last administered on 10/01/18at 05:39; Start 09/30/18 at 00:00; Stop 07/10 at 08:57; Status DC Ketorolac Tromethamine (Toradol 30mg Vial) 30 mg PRN Q8HRS PRN IV MODERATE PAIN Last administered on 10/01/18at 20:57; Start 09/29/18 at 22:45; Stop at 22:44 Meloxicam (Mobic) 7.5 mg DAILY PO Last administered on 10/02/18at 09:47; Start 09/30/18 at 09:00 Mirtazapine (Remeron) 15 mg QHS PO Last administered on 10/01/18at 20:47; Start 09/29/18 at 23:30 Vancomycin HCl 1.25 gm/Sodium Chloride 250 ml @ 167 mls/hr Q8H IV Last administered on 10/02/18at 06:02; Start 09/30/18 at 05:00 Vancomycin HCl (Vancomycin Trough Level) 1 each 1X ONCE MC Last administered on 09/30/18at 20:30; Start 09/30/18 at 20:30; Stop 09/30/18 at 20:31; Status DC Lactobacillus Rhamnosus (Culturelle) 1 cap BID PO Last administered on at 09:47; Start 09/30/18 at 09:00 Acetaminophen (Tylenol) 500 mg PRN Q6HRS PRN PO MILD PAIN / TEMP; Start at 09:30 Acetaminophen/ Codeine Phosphate (Tylenol #3) 1 tab PRN Q6HRS PRN PO MODERATE PAIN Last administered on 10/02/18at 09:47; Start 10/02/18 at 09:30 Ibuprofen (Motrin) 400 mg PRN Q6HRS PRN PO INFLAMMATION; Start 10/02/18 at 09: 30; Stop 10/02/18 at 10:00; Status DC Ondansetron HCl (Zofran) 4 mg PRN Q6HRS PRN IV NAUSEA/VOMITING; Start 10/02/18 at 09:30 Ondansetron HCl (Zofran Odt) 4 mg PRN Q6HRS PRN PO NAUSEA/VOMITING; Start 10/02 at 09:30 Diphenhydramine HCl (Benadryl) 25 mg PRN QHS PRN PO INSOMNIA; Start 10/02/18 at 09:30 Cefepime HCl (Maxipime) 2 gm Q8HRS IVP ; Start 10/02/18 at 09:30 Famotidine (Pepcid) 20 mg BID PO ; Start 10/02/18 at 10:00 Active Scripts Active [place] 5-325 Tablet (Acetaminophen/Hydrocodone Bitart) 1 Each Tablet 1-2 Each PO PRN Q6HRS PRN as needed for pain Meloxicam 7.5 Mg Tablet 7.5 Mg PO DAILY Percocet 10-325 Mg Tablet (Oxycodone/Acetaminophen) 1 Each Tablet 1 Tab PO PRN Q4HRS PRN Reported Ibuprofen 800 Mg Tablet 800 Mg PO PRN Q6HRS PRN Vitals/I & O Vital Sign - Last 24 Hours 10/01/18 10/01/18 10/01/1810/01/19 11:00 12:34 15:06 19:00 Temp 97.9 98.1 98.3 97.9 98.1 98.3 Pulse 58 60 45 Resp 18 20 18 B/P (MAP) 122/53 (76) 133/78 (96) 106/82 (90) Pulse Ox 97 98 97 O2 Delivery Room Air Room Air Room Air Room Air 10/01/18 10/01/18 10/02/18 10/02/18 20:00 23:00 03:00 07:00 Temp 97.9 97.9 98.2 97.9 97.9 98.2 Pulse 79 52 45 Resp 18 18 15 B/P (MAP) 105/57 (73) 113/65 (81) 123/71 (88) Pulse Ox 96 97 98 O2 Delivery Room Air Room Air Room Air Room Air Intake and Output 10/01/18 10/01/18 10/02/18 15:01 23:01 07:01 Intake Total 480 ml 200 ml 250 ml Balance 480 ml 200 ml 250 ml CALIXTO FINLEY MD Oct 02, 2018 10:51
[2018-10-02 11:00] VITALS: BP 117/71
[2018-10-02] MEDS ORDERED: IV RINGERS,LACTATED 1000ML 1,000 ML IV SCH (11:05)
[2018-10-02] MEDS ORDERED: LIDOCAINE 1% PF 2 ML VIAL. ID PRN (11:15)
[2018-10-02] MEDS ORDERED: MORPHINE SULFATE 4 MG/ML VIAL. IV PRN (11:15)
[2018-10-02] MEDS ORDERED: HYDROmorphone 2 MG/ML VIAL IV PRN (11:15)
[2018-10-02] MEDS ORDERED: fentaNYL PF VIAL 100 MCG/2 ML VIAL IV PRN ×2 (11:15)
[2018-10-02] MEDS ORDERED: PROCHLORPERAZINE 10 MG/2 ML VIAL. IV PRN (11:15)
[2018-10-02] MEDS ORDERED: LIDOCAINE 2% VISCOUS 15 ML SOLUTION. SWSW ONE (12:15)
[2018-10-02] MEDS ORDERED: BENZOCAINE ONE 20% MUCOSAL SPRAY. MM (12:15)
[2018-10-02] MEDS ORDERED: LIDOCAINE 2% TOPICAL JELLY 30GM TUBE. TP ONE (12:15)
--- NOTE | 2018-10-02 13:03 | NUR ---
SW following for dc planning. Discussed with RN, per RN pt is having a procedure this afternoon. Pt [facility]. SW will continue to follow.
--- NOTE | 2018-10-02 13:47 | NUR ---
MEDICATION ADMIN: Administered pt PO pepcid, IVP cefepime, and IV vancomycin at 1300. Attempted to save scanned medications on laptop, which has been buffering and unable to connect to service observer chief for 40 minutes. Unable to save scanned medications on original device.
[2018-10-02] MEDS: VANCOMYCIN PER PHARMACY MC PRN (13:50)
--- NOTE | 2018-10-02 14:21 | NUR ---
Held 1400 dose of cefepime, am dose was not administered until 1300
[2018-10-02] MEDS ORDERED: LIDOCAINE 2% PF 5 ML VIAL. ONE (14:59)
[2018-10-02] MEDS ORDERED: PROPOFOL 20 ML IV ONE ×2 (14:59)
--- NOTE | 2018-10-02 17:53 | CARD ---
MR#: [id number] Date of Study: 10/02/2018 Ordering Physician: GRIFFIN AMES, Referring Physician: AUGUSTINE GRACE Tech: Meena Arriaga RDCS APPROVED REPORT EXAM: Transesophageal echocardiogram with color flow Doppler. INDICATION Bacteremia Reason For Test : Rule out endocarditis. PROCEDURE After obtaining informed consent, patient underwent transesophageal echo in the PACU. Type of Sedation : General Anesthesia Sedation was achieved with Propofol 280 intravenously. The ANASTACIO was performed without complications. Throughout the procedure, the blood pressure, pulse oximetry, cardiac rhythm, and rate were monitored . LEFT VENTRICLE The left ventricle is normal size. There is normal left ventricular wall thickness. The left ventricu lar systolic function is normal. The Ejection Fraction is 55-60%. There is normal LV segmental wall m otion. RIGHT VENTRICLE The right ventricle is normal size. There is normal right ventricular wall thickness. The right ventr icular systolic function is normal. ATRIA The left atrium size is normal. The right atrium size is normal. The interatrial septum is intact wit h no evidence for an atrial septal defect or patent foramen ovale as noted on 2-D or Doppler imaging. There is no thrombus noted in the left atrial appendage. AORTIC VALVE The aortic valve is normal in structure and function. The aortic valve is trileaflet. Doppler and Col or Flow revealed no significant aortic regurgitation. There is no significant aortic valvular stenosi s. MITRAL VALVE The mitral valve is normal in structure and function. There is no evidence of mitral valve prolapse. There is no mitral valve stenosis. Doppler and Color-flow revealed trace mitral regurgitation. TRICUSPID VALVE The tricuspid valve is normal in structure and function. Doppler and Color Flow revealed no tricuspid valve regurgitation noted. There is no tricuspid valve prolapse or vegetation. There is no tricuspid valve stenosis. PULMONIC VALVE The pulmonary valve is normal in structure and function. Doppler and Color Flow revealed no pulmonic valvular regurgitation. There is no pulmonic valvular stenosis. GREAT VESSELS The aortic root is normal in size. The ascending aorta is normal in size. PERICARDIAL EFFUSION There is no evidence of significant pericardial effusion. Critical Notification Critical Value: No <Conclusion> The left ventricular systolic function is normal. The Ejection Fraction is 55-60%. There is normal LV segmental wall motion. Doppler and Color-flow revealed trace mitral regurgitation. There is no evidence of significant pericardial effusion. No intracardiac vegetation or thrombus. Signed by : Juan Hoover, Electronically Approved : 10/02/2018 17:51:50
[2018-10-02 19:00] VITALS: BP 105/48
[2018-10-02 23:00] VITALS: BP 119/68
[2018-10-03] MEDS: MIRTAZAPINE 15 MG TABLET PO SCH ×2 (00:04→21:00)
[2018-10-03 03:00] VITALS: BP 122/62
[2018-10-03] MEDS: CEFEPIME HCL IV Push 2 GM VIAL. IVP SCH ×3 (05:59→23:49)
[2018-10-03] MEDS: VANCOMYCIN 1.25 GM in IV NORMAL SALINE 250ML 250 ML IV SCH ×3 (05:59→21:10)
[2018-10-03] MEDS: ACETAMINOPHEN/CODEINE 300/30MG TABLET. PO PRN ×3 (06:06→21:09)
[2018-10-03 07:20] VITALS: BP 118/63
[2018-10-03] MEDS: MELOXICAM 7.5 MG TABLET PO SCH (09:00)
[2018-10-03] MEDS: LACTOBACILLUS RHAMNOSUS GG 1 CAPSULE. PO SCH ×2 (09:20→21:08)
[2018-10-03] MEDS: FAMOTIDINE 20 MG TABLET. PO SCH ×2 (09:21→21:09)
--- NOTE | 2018-10-03 11:03 | PDOC ---
PROGRESS NOTES Chief Complaint Chief Complaint no fevers. doing well. no complaints. Has right IV peripheral line ANASTACIO is negative for vegetations, 10/02/18 Previous he had a left PICC line-had some swelling Plan: We'll be here over the weekend, speciation is still pending So far no picc plans follow ID recs History of Present Illness History of Present Illness Assessment Staph and GNR Bactermia: cultures 09/27 growing Staph but not known speciation. blood culture now growing GNR. suspect Line infection H/o MRSA sepsis/Bacteremia 09/08 and 09/09 MRSA, neg bc 09/10 and 09/13 Left hip pain - XRAY neg but MRI + for abscess s/p I and D 09/13 and discharged with IV dapto with PICC on 09/17 Chest pain -no definite abscess; improved on CTA 09/27. seen by cardiothoracic sx last admission and no surgical intervention + substance abuse Anemia Vitals Vitals Vital Signs Date Time Temp Pulse Resp B/P (MAP) Pulse Ox O2 Delivery O2 Flow Rate FiO2 10/03/18 09:06 Room Air 10/03/18 07:20 98.6 56 118/63 (81) 98 98.6 10/03/18 03:00 18 10/02/18 15:35 6 Physical Exam Physical Exam GENERAL: Propped up in bed,Coop, NAD HEENT: Normal conjunctivae. Oral cavity, pharynx is clear. NECK: Supple. Good range of motion. LUNGS: Clear to auscultation. HEART: S1, S2. no gross murmur Chest - min in any discomfort left mid area but no swelling/erythema/warmth/ fluctuance ABDOMEN: Soft, nontender, nondistended with positive bowel sounds. EXTREMITIES: Left hip over trochanteric and gluteal nontender. wound is clean and healed. No erythema/warmth or fluctuance.- Good ROM. There is no left arm, axillary/upper chest area swelling RUE antecubital wound - healed SKIN: Warm to touch without signs of rash. Tattoos. NEUROLOGIC: Alert, responds appropriately PICC LUE ok General: Alert, Oriented X3, Cooperative, No acute distress Heart: Regular rate, Normal S1, Normal S2, No murmurs Lungs: Clear Abdomen: Normal bowel sounds, Soft, No tenderness Extremities: No clubbing, No cyanosis, No edema, Other ( Left hip over trochanteric and gluteal nontender. wound is clean and healed. No erythema/ warmth or fluctuance. no left arm, axillary/upper chest area swelling) Skin: No rashes, No breakdown, No significant lesion Review of Systems Review of Systems A 14 point ROS was completed with the following noted as positive: Other systems reviewed and negative. \CONSTITUTIONAL: No fever or chills EYES: No recent changes SKIN: No rash or itching CARDIOVASCULAR: No chest pain, syncope, palpitations, or edema RESPIRATORY: No SOB or cough GASTROINTESTINAL: No nausea, vomiting or abdominal pain NEUROLOGICAL: No headaches or weakness ENDOCRINE: No cold or heat intolerance GENITOURINARY: No urgency or frequency of urination MUSCULOSKELETAL: No back pain or joint pain LYMPHATICS: No enlarged lymph nodes PSYCHIATRIC: No anxiety or depression Comment Review of Relevant I have reviewed the following items rima (where applicable) has been applied. Labs Laboratory Tests Test 10/02/18 04:50 Creatinine 0.8 mg/dL (0.6-1.0) Estimated GFR (Cockcroft-Gault) 86.0 Microbiology 10/02/18 Blood Culture - Preliminary, Resulted NO GROWTH AFTER 1 DAY Medications Current Medications Vancomycin HCl (Vanco Per Pharmacy) 1 each PRN DAILY PRN MC SEE COMMENTS Last administered on 10/02/18at 13:50; Start 09/29/18 at 21:00 Vancomycin HCl 2 gm/Sodium Chloride 500 ml @ 250 mls/hr 1X ONCE IV Last administered on 09/29/18at 21:05; Start 09/29/18 at 21:30; Stop 09/29/18 at 23:29; Status DC Ondansetron HCl (Zofran) 4 mg PRN Q8HRS PRN IV NAUSEA/VOMITING; Start 09/29/18 at 21:45; Stop 09/30/18 at 21:44; Status DC Sodium Chloride 1,000 ml @ 125 mls/hr Q8H IV Last administered on 09/30/18at 13: 32; Start 09/29/18 at 21:32; Stop 09/30/18 at 21:31; Status DC Linezolid/Dextrose 300 ml @ 300 mls/hr Q12HR IV Last administered on 09/30/18at 09:38; Start 09/29/18 at 22:30; Stop 09/30/18 at 10:48; Status DC Piperacillin Sod/ Tazobactam Sod (Zosyn Per Pharmacy) 1 each PRN DAILY PRN MC SEE COMMENTS; Start 09/29/18 at 21:45; Stop 10/01/18 at 08:57; Status DC Piperacillin Sod/ Tazobactam Sod 4.5 gm/Sodium Chloride 100 ml @ 200 mls/hr Q6HRS IV Last administered on 10/01/18at 05:39; Start 09/30/18 at 00:00; Stop 07/10 at 08:57; Status DC Ketorolac Tromethamine (Toradol 30mg Vial) 30 mg PRN Q8HRS PRN IV MODERATE PAIN Last administered on 10/01/18at 20:57; Start 09/29/18 at 22:45; Stop at 22:44 Meloxicam (Mobic) 7.5 mg DAILY PO Last administered on 10/02/18at 09:47; Start 09/30/18 at 09:00 Mirtazapine (Remeron) 15 mg QHS PO Last administered on 10/01/18at 20:47; Start 09/29/18 at 23:30 Vancomycin HCl 1.25 gm/Sodium Chloride 250 ml @ 167 mls/hr Q8H IV Last administered on 10/03/18at 05:59; Start 09/30/18 at 05:00 Vancomycin HCl (Vancomycin Trough Level) 1 each 1X ONCE MC Last administered on 09/30/18at 20:30; Start 09/30/18 at 20:30; Stop 09/30/18 at 20:31; Status DC Lactobacillus Rhamnosus (Culturelle) 1 cap BID PO Last administered on at 09:20; Start 09/30/18 at 09:00 Acetaminophen (Tylenol) 500 mg PRN Q6HRS PRN PO MILD PAIN / TEMP; Start at 09:30 Acetaminophen/ Codeine Phosphate (Tylenol #3) 1 tab PRN Q6HRS PRN PO MODERATE PAIN Last administered on 10/03/18at 06:06; Start 10/02/18 at 09:30 Ibuprofen (Motrin) 400 mg PRN Q6HRS PRN PO INFLAMMATION; Start 10/02/18 at 09: 30; Stop 10/02/18 at 10:00; Status DC Ondansetron HCl (Zofran) 4 mg PRN Q6HRS PRN IV NAUSEA/VOMITING; Start 10/02/18 at 09:30 Ondansetron HCl (Zofran Odt) 4 mg PRN Q6HRS PRN PO NAUSEA/VOMITING; Start 10/02 at 09:30 Diphenhydramine HCl (Benadryl) 25 mg PRN QHS PRN PO INSOMNIA; Start 10/02/18 at 09:30 Cefepime HCl (Maxipime) 2 gm Q8HRS IVP Last administered on 10/03/18at 05:59; Start 10/02/18 at 09:30 Famotidine (Pepcid) 20 mg BID PO Last administered on 10/03/18at 09:21; Start at 10:00 Ondansetron HCl (Zofran) 4 mg PRN Q6HRS PRN IV NAUSEA/VOMITING; Start 10/02/18 at 11:15; Stop 10/03/18 at 11:14 Fentanyl Citrate (Fentanyl 2ml Vial) 25 mcg PRN Q5MIN PRN IV MILD PAIN; Start 10/02/18 at 11:15; Stop 10/03/18 at 11:14 Fentanyl Citrate (Fentanyl 2ml Vial) 50 mcg PRN Q5MIN PRN IV MODERATE TO SEVERE PAIN; Start 10/02/18 at 11:15; Stop 10/03/18 at 11:14 Morphine Sulfate (Morphine Sulfate) 1 mg PRN Q10MIN PRN IV SEVERE PAIN; Start 10/02/18 at 11:15; Stop 10/03/18 at 11:14 Ringer's Solution 1,000 ml @ 30 mls/hr Q24H IV Last administered on 10/02/18at 14:50; Start 10/02/18 at 11:05; Stop 10/02/18 at 23:04; Status DC Lidocaine HCl (Xylocaine-Mpf 1% 2ml Vial) 2 ml 1X PRN PRN ID IV START; Start at 11:15; Stop 10/03/18 at 11:14 Hydromorphone HCl (Dilaudid) 0.5 mg PRN Q10MIN PRN IV SEV PAIN, Second choice; Start 10/02/18 at 11:15; Stop 10/03/18 at 11:14 Prochlorperazine Edisylate (Compazine) 5 mg PACU PRN PRN IV NAUSEA, MRX1; Start 10/02/18 at 11:15; Stop 10/03/18 at 11:14 Lidocaine HCl (Viscous Lidocaine) 15 ml 1X ONCE SWSW Last administered on 10/02at 14:49; Start 10/02/18 at 12:15; Stop 10/02/18 at 12:16; Status DC Lidocaine HCl (Xylocaine 2% Topical 30gm Tube) 1 sidra 1X ONCE TP Last administered on 10/02/18at 14:49; Start 10/02/18 at 12:15; Stop 10/02/18 at 12:16 ; Status DC Benzocaine (Hurricaine One) 3 spray 1X ONCE MM Last administered on 10/02/18at 14:49; Start 10/02/18 at 12:15; Stop 10/02/18 at 12:16; Status DC Propofol 20 ml @ As Directed STK-MED ONCE IV ; Start 10/02/18 at 14:59; Stop 08/10 at 15:01; Status DC Propofol 20 ml @ As Directed STK-MED ONCE IV ; Start 10/02/18 at 14:59; Stop 08/10 at 15:01; Status DC Lidocaine HCl (Lidocaine Pf 2% Vial) 5 ml STK-MED ONCE .ROUTE ; Start 10/02/18 at 14:59; Stop 10/02/18 at 15:01; Status DC Active Scripts Active [place] 5-325 Tablet (Acetaminophen/Hydrocodone Bitart) 1 Each Tablet 1-2 Each PO PRN Q6HRS PRN as needed for pain Meloxicam 7.5 Mg Tablet 7.5 Mg PO DAILY Percocet 10-325 Mg Tablet (Oxycodone/Acetaminophen) 1 Each Tablet 1 Tab PO PRN Q4HRS PRN Reported Ibuprofen 800 Mg Tablet 800 Mg PO PRN Q6HRS PRN Vitals/I & O Vital Sign - Last 24 Hours 10/02/18 10/02/18 10/02/18 10/02/18 14:00 14:15 14:30 14:45 Temp 98.1 98.1 98.1 98.1 98.1 98.1 98.1 98.1 Pulse 44 56 53 46 Resp 18 18 18 17 B/P (MAP) 133/71 133/71 132/58 136/68 Pulse Ox 97 97 98 98 O2 Delivery Room Air Room Air Room Air Room Air 10/02/18 10/02/18 10/02/18 10/02/18 15:15 15:20 15:25 15:30 Temp 98.1 98.1 98.1 98.1 98.1 98.1 Pulse 58 74 68 Resp 22 18 22 B/P (MAP) 132/81 151/96 124/76 Pulse Ox 98 92 98 O2 Delivery Nasal Cannula Nasal Cannula Nasal Cannula Room Air O2 Flow Rate 6 6 6 10/02/18 10/02/18 10/02/18 10/02/18 15:30 15:35 15:45 15:50 Temp 98.0 98.0 98.0 98.0 98.0 98.0 98.0 98.0 Pulse 52 52 46 46 Resp 20 21 14 12 B/P (MAP) 119/97 141/73 128/76 127/73 Pulse Ox 98 95 98 97 O2 Delivery Room Air Nasal Cannula Room Air Room Air O2 Flow Rate 6 10/02/18 10/02/18 10/02/18 10/02/18 19:00 19:30 20:00 23:00 Temp 97.8 98.0 97.8 98.0 Pulse 51 56 Resp 16 18 B/P (MAP) 105/48 (67) 119/68 (85) Pulse Ox 95 95 95 O2 Delivery Room Air Room Air Room Air 10/03/18 10/03/18 10/03/18 10/03/18 03:00 06:06 07:20 09:06 Temp 97.9 98.6 97.9 98.6 Pulse 46 56 Resp 18 B/P (MAP) 122/62 (82) 118/63 (81) Pulse Ox 95 95 98 O2 Delivery Room Air Room Air Room Air Room Air Intake and Output 10/02/18 10/02/18 10/03/18 15:01 23:01 07:01 Intake Total 150 ml Balance 150 ml CALIXTO FINLEY MD Oct 03, 2018 11:03
[2018-10-03 11:20] VITALS: BP 122/55
[2018-10-03] MEDS: ONDANSETRON ODT 4 MG TAB.RAPDIS. PO PRN ×2 (12:45→21:09)
--- NOTE | 2018-10-03 12:56 | NUR ---
This nurse spoke with [facility], patient currently uses the service. Discussed with Yasir, admit status, length of stay, and patient would need new orders at discharge to continue to service. [phone] for any further updates. This nurse will continue to assist with this patient as needed.
--- NOTE | 2018-10-03 13:24 | PDOC ---
Infectious Disease Note Subjective Subjective Feeling better today, though having some epigastric discomfort No F/C/S/N/V/SOA ROS ROS per HPI Vital Sign Vital Signs Vital Signs Date Time Temp Pulse Resp B/P (MAP) Pulse Ox O2 Delivery O2 Flow Rate FiO2 10/03/18 12:46 Room Air 10/03/18 11:20 98.0 66 122/55 (77) 96 98.0 10/03/18 03:00 18 10/02/18 15:35 6 Physical Exam PHYSICAL EXAM GENERAL: Propped up in bed, Coop, NAD HEENT: Normal conjunctivae. Oral cavity, pharynx is clear. NECK: Supple. Good range of motion. LUNGS: Clear to auscultation. HEART: S1, S2. no gross murmur Chest - min in any discomfort left mid area but no swelling/erythema/warmth/ fluctuance ABDOMEN: Soft, nontender, nondistended with positive bowel sounds. EXTREMITIES: Left hip over trochanteric and gluteal nontender. wound is clean and healed. No erythema/warmth or fluctuance.- Good ROM. There is no left arm, axillary/upper chest area swelling RUE antecubital wound - healed SKIN: Warm to touch without signs of rash. Tattoos. NEUROLOGIC: Alert, responds appropriately PICC LUE ok Labs Lab <Conclusion> The left ventricular systolic function is normal. The Ejection Fraction is 55-60%. There is normal LV segmental wall motion. Doppler and Color-flow revealed trace mitral regurgitation. There is no evidence of significant pericardial effusion. No intracardiac vegetation or thrombus. Micro Microbiology 10/02/18 Blood Culture - Preliminary, Resulted NO GROWTH AFTER 1 DAY 09/29. BLOOD CULTURE Final GRAM NEGATIVE RODS, IN 1 OF 4 BOTTLES, TWO SETS DRAWN. THIS BOTTLE WAS DRAWN FROM THE PICC LINE. 09/27. BLD CULT RESULT 1 Final Staphylococcus aureus Based on resistance to oxacillin this isolate would be resistant to all currently available beta-lactam antimicrobial agents, with the exception of the newer cephalosporins with anti-MRSA activity, such as Ceftaroline This isolate does not demonstrate inducible clindamycin resistance in vitro by D test. CLINDAMYCIMN = SENSITIVE ERYTHROMYCIN = RESISTANT BLD CULT RESULT 2 Final Staphylococcus aureus ANTIMICROBIAL SUSCEPTIBILITY Final Comment S = Susceptible; I = Intermediate; R = Resistant P = Positive; N = Negative MICS are expressed in micrograms per mL Antibiotic RSLT#1 RSLT#2 RSLT#3 RSLT#4 Ciprofloxacin R>=8 Gentamicin S<=0.5 Levofloxacin I =4 Linezolid S =1 Oxacillin R>=4 Penicillin R>=0.5 Rifampin S<=0.5 Tetracycline S<=1 Trimethoprim/Sulfa S<=10 Vancomycin S<=0.5 Objective Assessment MRSA Bacteremia 09/27/2018 GNR bacteremia 09/29 H/o MRSA sepsis/Bacteremia 09/08 and 09/09 MRSA,,, neg bc 09/10 and 09/13 Left hip pain - XRAY neg but MRI + for abscess s/p I and D 09/13 Chest pain - left upper chest pain/fullness - likely infection, though no definite abscess improved on CTA 09/27 Left axillary fullness better Right antecubital wound is healed + substance abuse -denies use since discharge Plan Plan of Care Cont Vanc and cefepime Trough 19.1 F/u repeat cults 10/02 NGTD Supportive care Attending Co-Sign The patient was seen and interviewed as well as examined at the bedside. The chart was reviewed. The case was discussed. Agree with the plan of care. RAF GALAN APRN Oct 03, 2018 13:24 OSCAR NEVAREZ MD Oct 03, 2018 14:52
[2018-10-03] MEDS: VANCOMYCIN PER PHARMACY MC PRN (13:59)
[2018-10-03 15:20] VITALS: BP 130/77
[2018-10-03 19:00] VITALS: BP 106/61
[2018-10-03 23:00] VITALS: BP 109/46
[2018-10-04 03:00] VITALS: BP 103/62
[2018-10-04] MEDS: CEFEPIME HCL IV Push 2 GM VIAL. IVP SCH ×3 (06:24→22:39)
[2018-10-04] MEDS: VANCOMYCIN 1.25 GM in IV NORMAL SALINE 250ML 250 ML IV SCH (06:31)
[2018-10-04 07:00] VITALS: BP 111/64
[2018-10-04] MEDS: FAMOTIDINE 20 MG TABLET. PO SCH ×2 (07:58→22:05)
[2018-10-04] MEDS: LACTOBACILLUS RHAMNOSUS GG 1 CAPSULE. PO SCH ×2 (07:58→22:05)
[2018-10-04] MEDS: ACETAMINOPHEN/CODEINE 300/30MG TABLET. PO PRN ×3 (07:58→22:05)
[2018-10-04] MEDS: MELOXICAM 7.5 MG TABLET PO SCH (09:00)
--- NOTE | 2018-10-04 10:41 | PDOC ---
Infectious Disease Note Subjective Subjective c/o some left shoulder pain with ROM Slept alright Loose stools Denies F/C/S/N/V Vital Sign Vital Signs Vital Signs Date Time Temp Pulse Resp B/P (MAP) Pulse Ox O2 Delivery O2 Flow Rate FiO2 10/04/18 07:58 Room Air 10/04/18 07:00 97.7 52 16 111/64 (80) 96 97.7 Physical Exam PHYSICAL EXAM GENERAL: Propped up in bed, Coop, NAD HEENT: Normal conjunctivae. Oral cavity, pharynx is clear. NECK: Supple. Good range of motion. LUNGS: Clear to auscultation. HEART: S1, S2. no gross murmur ABDOMEN: Soft, nontender, nondistended with positive bowel sounds. EXTREMITIES: No gross edema or cyanosis SKIN: Warm to touch without signs of rash. Tattoos. NEUROLOGIC: Alert, responds appropriately PICC Labs Micro 10/02/18 Blood Culture - Preliminary, Resulted NO GROWTH AFTER 2 DAY 09/29. BLOOD CULTURE Final GRAM NEGATIVE RODS, IN 1 OF 4 BOTTLES, TWO SETS DRAWN. THIS BOTTLE WAS DRAWN FROM THE PICC LINE. 09/27. BLD CULT RESULT 1 Final Staphylococcus aureus MICS are expressed in micrograms per mL Antibiotic RSLT#1 Ciprofloxacin R>=8 Gentamicin S<=0.5 Levofloxacin I =4 Linezolid S =1 Oxacillin R>=4 Penicillin R>=0.5 Rifampin S<=0.5 Tetracycline S<=1 Trimethoprim/Sulfa S<=10 Vancomycin S<=0.5 Objective Assessment MRSA bacteremia (vanc S<=0.5) on 09/27/2018 (while on Dapto) GNR sepsis/bacteremia 09/29 H/o MRSA sepsis/bacteremia (Dapto sensitive 0.25) 09/08 and 09/09. BC were neg 09/10 and 09/13/2018. Left hip pain - XRAY neg but MRI + for abscess s/p I and D 09/13/2018 Chest pain - left upper chest pain/fullness - likely infection, though no definite abscess; improved on CTA 09/27 Left axillary fullness better Right antecubital wound is healed + substance abuse -denies use since discharge Plan Plan of Care Cont Vanc and cefepime Trough 19.1 Probiotics F/u repeat cults 10/02 NGTD Supportive care Awaiting GNR ID/sensitivities Attending Co-Sign The patient was seen and interviewed as well as examined at the bedside. The chart was reviewed. The case was discussed. Agree with the plan of care. RAF GALAN APRN Oct 04, 2018 10:41 OSCAR NEVAREZ MD Oct 04, 2018 15:17
[2018-10-04 11:00] VITALS: BP 121/60
--- NOTE | 2018-10-04 11:33 | PDOC ---
PROGRESS NOTES Chief Complaint Chief Complaint no fevers. doing well. no complaints. Has right IV peripheral line ANASTACIO is negative for vegetations, 10/02/18 Previous he had a left PICC line-had some swelling GNR identification/speciation is still pending Plan: speciation is still pending So far no picc plans follow ID recs Hopefully blood cx out friday - she would like to go home soon Re check CBC and ESR tomorrow Friday-has been a while History of Present Illness History of Present Illness Assessment Staph and GNR Bactermia: cultures 09/27 growing Staph but not known speciation. blood culture now growing GNR. suspect Line infection H/o MRSA sepsis/Bacteremia 09/08 and 09/09 MRSA, neg bc 09/10 and 09/13 Left hip pain - XRAY neg but MRI + for abscess s/p I and D 09/13 and discharged with IV dapto with PICC on 09/17 Chest pain -no definite abscess; improved on CTA 09/27. seen by cardiothoracic sx last admission and no surgical intervention + substance abuse Anemia Vitals Vitals Vital Signs Date Time Temp Pulse Resp B/P (MAP) Pulse Ox O2 Delivery O2 Flow Rate FiO2 10/04/18 07:58 Room Air 10/04/18 07:00 97.7 52 16 111/64 (80) 96 97.7 Physical Exam Physical Exam GENERAL: Propped up in bed, Coop, NAD HEENT: Normal conjunctivae. Oral cavity, pharynx is clear. NECK: Supple. Good range of motion. LUNGS: Clear to auscultation. HEART: S1, S2. no gross murmur ABDOMEN: Soft, nontender, nondistended with positive bowel sounds. EXTREMITIES: No gross edema or cyanosis SKIN: Warm to touch without signs of rash. Tattoos. NEUROLOGIC: Alert, responds appropriately PICC General: Alert, Oriented X3, Cooperative, No acute distress Heart: Regular rate, Normal S1, Normal S2, No murmurs Lungs: Clear Abdomen: Normal bowel sounds, Soft, No tenderness Extremities: No clubbing, No cyanosis, No edema, Other ( Left hip over trochanteric and gluteal nontender. wound is clean and healed. No erythema/ warmth or fluctuance. no left arm, axillary/upper chest area swelling) Skin: No rashes, No breakdown, No significant lesion Review of Systems Review of Systems A 14 point ROS was completed with the following noted as positive: Other systems reviewed and negative. \CONSTITUTIONAL: No fever or chills EYES: No recent changes SKIN: No rash or itching CARDIOVASCULAR: No chest pain, syncope, palpitations, or edema RESPIRATORY: No SOB or cough GASTROINTESTINAL: No nausea, vomiting or abdominal pain NEUROLOGICAL: No headaches or weakness ENDOCRINE: No cold or heat intolerance GENITOURINARY: No urgency or frequency of urination MUSCULOSKELETAL: No back pain or joint pain LYMPHATICS: No enlarged lymph nodes PSYCHIATRIC: No anxiety or depression Comment Review of Relevant I have reviewed the following items rima (where applicable) has been applied. Labs Microbiology 10/02/18 Blood Culture - Preliminary, Resulted NO GROWTH AFTER 2 DAYS Medications Current Medications Vancomycin HCl (Vanco Per Pharmacy) 1 each PRN DAILY PRN MC SEE COMMENTS Last administered on 10/03/18at 13:59; Start 09/29/18 at 21:00 Vancomycin HCl 2 gm/Sodium Chloride 500 ml @ 250 mls/hr 1X ONCE IV Last administered on 09/29/18at 21:05; Start 09/29/18 at 21:30; Stop 09/29/18 at 23:29; Status DC Ondansetron HCl (Zofran) 4 mg PRN Q8HRS PRN IV NAUSEA/VOMITING; Start 09/29/18 at 21:45; Stop 09/30/18 at 21:44; Status DC Sodium Chloride 1,000 ml @ 125 mls/hr Q8H IV Last administered on 09/30/18at 13: 32; Start 09/29/18 at 21:32; Stop 09/30/18 at 21:31; Status DC Linezolid/Dextrose 300 ml @ 300 mls/hr Q12HR IV Last administered on 09/30/18at 09:38; Start 09/29/18 at 22:30; Stop 09/30/18 at 10:48; Status DC Piperacillin Sod/ Tazobactam Sod (Zosyn Per Pharmacy) 1 each PRN DAILY PRN MC SEE COMMENTS; Start 09/29/18 at 21:45; Stop 10/01/18 at 08:57; Status DC Piperacillin Sod/ Tazobactam Sod 4.5 gm/Sodium Chloride 100 ml @ 200 mls/hr Q6HRS IV Last administered on 10/01/18 05:39; Start 09/30/18 at 00:00; Stop 07/10 at 08:57; Status DC Ketorolac Tromethamine (Toradol 30mg Vial) 30 mg PRN Q8HRS PRN IV MODERATE PAIN Last administered on 10/01/18 20:57; Start 09/29/18 at 22:45; Stop at 22:44 Meloxicam (Mobic) 7.5 mg DAILY PO Last administered on 10/02/18 09:47; Start 09/30/18 at 09:00 Mirtazapine (Remeron) 15 mg QHS PO Last administered on 10/01/18 20:47; Start 09/29/18 at 23:30 Vancomycin HCl 1.25 gm/Sodium Chloride 250 ml @ 167 mls/hr Q8H IV Last administered on 10/04/18 06:31; Start 09/30/18 at 05:00 Vancomycin HCl (Vancomycin Trough Level) 1 each 1X ONCE MC Last administered on 09/30/18 20:30; Start 09/30/18 at 20:30; Stop 09/30/18 at 20:31; Status DC Lactobacillus Rhamnosus (Culturelle) 1 cap BID PO Last administered on 07:58; Start 09/30/18 at 09:00 Acetaminophen (Tylenol) 500 mg PRN Q6HRS PRN PO MILD PAIN / TEMP; Start at 09:30 Acetaminophen/ Codeine Phosphate (Tylenol #3) 1 tab PRN Q6HRS PRN PO MODERATE PAIN Last administered on 10/04/18 07:58; Start 10/02/18 at 09:30 Ibuprofen (Motrin) 400 mg PRN Q6HRS PRN PO INFLAMMATION; Start 10/02/18 at 09: 30; Stop 10/02/18 at 10:00; Status DC Ondansetron HCl (Zofran) 4 mg PRN Q6HRS PRN IV NAUSEA/VOMITING; Start 10/02/18 at 09:30 Ondansetron HCl (Zofran Odt) 4 mg PRN Q6HRS PRN PO NAUSEA/VOMITING Last administered on 10/03/18 21:09; Start 10/02/18 at 09:30 Diphenhydramine HCl (Benadryl) 25 mg PRN QHS PRN PO INSOMNIA; Start 10/02/18 at 09:30 Cefepime HCl (Maxipime) 2 gm Q8HRS IVP Last administered on 10/04/18at 06:24; Start 10/02/18 at 09:30 Famotidine (Pepcid) 20 mg BID PO Last administered on 10/04/18at 07:58; Start at 10:00 Ondansetron HCl (Zofran) 4 mg PRN Q6HRS PRN IV NAUSEA/VOMITING; Start 10/02/18 at 11:15; Stop 10/03/18 at 11:14; Status DC Fentanyl Citrate (Fentanyl 2ml Vial) 25 mcg PRN Q5MIN PRN IV MILD PAIN; Start 10/02/18 at 11:15; Stop 10/03/18 at 11:14; Status DC Fentanyl Citrate (Fentanyl 2ml Vial) 50 mcg PRN Q5MIN PRN IV MODERATE TO SEVERE PAIN; Start 10/02/18 at 11:15; Stop 10/03/18 at 11:14; Status DC Morphine Sulfate (Morphine Sulfate) 1 mg PRN Q10MIN PRN IV SEVERE PAIN; Start 10/02/18 at 11:15; Stop 10/03/18 at 11:14; Status DC Ringer's Solution 1,000 ml @ 30 mls/hr Q24H IV Last administered on 10/02/18at 14:50; Start 10/02/18 at 11:05; Stop 10/02/18 at 23:04; Status DC Lidocaine HCl (Xylocaine-Mpf 1% 2ml Vial) 2 ml 1X PRN PRN ID IV START; Start at 11:15; Stop 10/03/18 at 11:14; Status DC Hydromorphone HCl (Dilaudid) 0.5 mg PRN Q10MIN PRN IV SEV PAIN, Second choice; Start 10/02/18 at 11:15; Stop 10/03/18 at 11:14; Status DC Prochlorperazine Edisylate (Compazine) 5 mg PACU PRN PRN IV NAUSEA, MRX1; Start 10/02/18 at 11:15; Stop 10/03/18 at 11:14; Status DC Lidocaine HCl (Viscous Lidocaine) 15 ml 1X ONCE SWSW Last administered on 10/02at 14:49; Start 10/02/18 at 12:15; Stop 10/02/18 at 12:16; Status DC Lidocaine HCl (Xylocaine 2% Topical 30gm Tube) 1 sidra 1X ONCE TP Last administered on 10/02/18at 14:49; Start 10/02/18 at 12:15; Stop 10/02/18 at 12:16 ; Status DC Benzocaine (Hurricaine One) 3 spray 1X ONCE MM Last administered on 10/02/18at 14:49; Start 10/02/18 at 12:15; Stop 10/02/18 at 12:16; Status DC Propofol 20 ml @ As Directed STK-MED ONCE IV ; Start 10/02/18 at 14:59; Stop 08/10 at 15:01; Status DC Propofol 20 ml @ As Directed STK-MED ONCE IV ; Start 10/02/18 at 14:59; Stop 08/10 at 15:01; Status DC Lidocaine HCl (Lidocaine Pf 2% Vial) 5 ml STK-MED ONCE .ROUTE ; Start 10/02/18 at 14:59; Stop 10/02/18 at 15:01; Status DC Vancomycin HCl (Vancomycin Trough Level) 1 each 1X ONCE MC ; Start 10/04/18 at 12:30; Stop 10/04/18 at 12:31 Active Scripts Active [place] 5-325 Tablet (Acetaminophen/Hydrocodone Bitart) 1 Each Tablet 1-2 Each PO PRN Q6HRS PRN as needed for pain Meloxicam 7.5 Mg Tablet 7.5 Mg PO DAILY Percocet 10-325 Mg Tablet (Oxycodone/Acetaminophen) 1 Each Tablet 1 Tab PO PRN Q4HRS PRN Reported Ibuprofen 800 Mg Tablet 800 Mg PO PRN Q6HRS PRN Vitals/I & O Vital Sign - Last 24 Hours 10/03/18 10/03/18 10/03/18 10/03/18 12:46 13:46 15:20 19:00 Temp 98.4 98.1 98.4 98.1 Pulse 58 70 B/P (MAP) 130/77 (94) 106/61 (76) Pulse Ox 96 98 98 O2 Delivery Room Air Room Air Room Air 1/09/0910/03/18 10/03/18 10/03/18 20:10 21:09 22:10 23:00 Temp 97.9 97.9 Pulse 53 Resp 16 14 B/P (MAP) 109/46 (67) Pulse Ox 96 O2 Delivery Room Air Room Air Room Air Room Air 10/04/18 10/04/18 10/04/18 03:00 07:00 07:58 Temp 97.8 97.7 97.8 97.7 Pulse 52 52 Resp 16 B/P (MAP) 103/62 (76) 111/64 (80) Pulse Ox 95 96 O2 Delivery Room Air Room Air Room Air CALIXTO FINLEY MD Oct 04, 2018 11:32
[2018-10-04 12:41] LABS: BASO # 0.1 x10^3/uL (0.0-0.2); BASO % 1 % (0-3); EOS # 0.6 x10^3/uL (0.0-0.7); EOS % 8 % (0-3); HEMATOCRIT 24.8 % (36.0-47.0); HEMOGLOBIN 8.6 g/dL (12.0-15.5); LYMPH # 1.7 x10^3/uL (1.0-4.8); LYMPH % 23 % (24-48); MEAN CORPUSCULAR HEMOGLOBIN 32 pg (25-35); MEAN CORPUSCULAR HGB CONC 35 g/dL (31-37); MEAN CORPUSCULAR VOLUME 91 fL (79-100); MONO # 0.5 x10^3/uL (0.0-1.1); MONO % 7 % (0-9); NEUT # 4.5 x10^3uL (1.8-7.7); NEUT % 62 % (31-73); PLATELET COUNT 236 x10^3/uL (140-400); RED BLOOD COUNT 2.73 x10^6/uL (3.50-5.40); RED CELL DISTRIBUTION WIDTH 15.3 % (11.5-14.5); WHITE BLOOD COUNT 7.3 x10^3/uL (4.0-11.0)
[2018-10-04 12:46] LABS: VANC TR 28.6 mcg/mL (10.0-20.0)
[2018-10-04] MEDS: VANCOMYCIN PER PHARMACY MC PRN (13:22)
--- NOTE | 2018-10-04 13:23 | NUR ---
Pharmacy Vancomycin Dosing Note S:Consulted to monitor and dose vancomycin started 09/29/18. O:RENE CONTRERAS is a 28 year old F with Bacteremia . Height: 5 feet, 7 inches Weight: 75.890076 kg [place] Body Weight: 61.60 Adjusted Body Weight: 67.36 Dosing Weight: Actual Other Antibiotics: CEFEPIM 2G IV Q8HRS (10/02 - ) ZOSYN 4.5G IV Q6HRS (DC 10/01) LABS: Last BUN: 16 Last Creatinine: 0.9 Creatinine Clearance: >100 mL/min Last WBC: 7.3 Last Platelets: 236 Tmax (past 24 hours): 98.1 Microbiology: BLOOD CX (09/27 ER VISIT): MRSA BLOOD CX (09/29): GNR I/O: -/- Drug Levels: Last Trough level: 28.6 (TT=25) on 10/04/18 at 1225 Last dose given 10/02/18 at 0602 Vancomycin Dosing: Loading Dose: 2000 mg x1 Dosing Weight: Actual Target Trough: 15-20 Trough drawn early, true trough=25. Decreased dose to 1.5gm iv q12h. A: Based on: high trough P: 1. Begin Vancomycin 1500 mg IV q12h 2. Follow up Trough level on 10/04/18 at 1230 3. Pharmacy will continue to monitor, follow and adjust therapy as needed. ROSA BOYKIN, [facility], 10/04/18 [id number]
[2018-10-04] MEDS: VANCOMYCIN 1.5 GM in IV NORMAL SALINE 500ML BAG 500 ML IV SCH (13:30)
[2018-10-04 15:00] VITALS: BP 118/69
[2018-10-04 19:00] VITALS: BP 114/60
[2018-10-04] MEDS: MIRTAZAPINE 15 MG TABLET PO SCH (21:00)
[2018-10-04 23:00] VITALS: BP 118/61
[2018-10-05] MEDS: VANCOMYCIN 1.5 GM in IV NORMAL SALINE 500ML BAG 500 ML IV SCH ×3 (01:30→16:45)
[2018-10-05 03:00] VITALS: BP 109/43
[2018-10-05] MEDS ORDERED: VANCOMYCIN RANDOM LEVEL. MC ONE (03:00)
[2018-10-05] MEDS: VANCOMYCIN PER PHARMACY MC PRN (04:23)
--- NOTE | 2018-10-05 04:25 | NUR ---
Pharmacy Vancomycin Dosing Note S: Consulted to monitor and dose vancomycin started 09/29/18. O: RENE CONTRERAS is a 28 year old F with Bacteremia . Other Antibiotics: CEFEPIM 2G IV Q8HRS (10/02 - ) ZOSYN 4.5G IV Q6HRS (DC 10/01) LABS: Last BUN: 16 Last Creatinine: 0.8 Creatinine Clearance: 112 mL/min Last WBC: 7.3 Last Platelets: 236 Tmax (past 24 hours): 98.1 Microbiology: BLOOD CX (09/27 ER VISIT): MRSA BLOOD CX (09/29): GNR I/O: -/- Drug Levels: Last Trough level: 8.5 on 10/05/18 at 0300 Last dose given 10/04/18 at 0500 Vancomycin Dosing: Dosing Weight: Actual Target Trough: 15-20 Trough drawn early, true trough=25. Decreased dose to 1.5gm IV q12h. 10/04/17 VANCO DOSING WAS HELD, ABOVE DOSING NEVER STARTED 10/05/18 0300 VANCO RANDOM TROUGH LEVEL WAS 8.5 10/05/17 0400 VANCOMYCIN 1500MG IV Q12H DOSING STARTED A: Based on: RANDOM TROUGH, ACTUAL WT AND CRCL P: 1. 10/05/18 0400 Vancomycin 1500 mg IV q12h 2. Follow up Trough level on 10/06/18 at 1530 3. Pharmacy will continue to monitor, follow and adjust therapy as needed. CODY DAHL RPH, 10/05/18 0425 Signed: 10/05/18 at 0426 by CODY DAHL RPH PHA
[2018-10-05 07:00] VITALS: BP 113/63
[2018-10-05] MEDS: CEFEPIME HCL IV Push 2 GM VIAL. IVP SCH ×3 (07:15→22:15)
[2018-10-05] MEDS: ACETAMINOPHEN/CODEINE 300/30MG TABLET. PO PRN ×3 (07:35→22:15)
[2018-10-05] MEDS: LACTOBACILLUS RHAMNOSUS GG 1 CAPSULE. PO SCH ×2 (09:10→22:15)
[2018-10-05] MEDS: MELOXICAM 7.5 MG TABLET PO SCH (09:10)
[2018-10-05] MEDS: FAMOTIDINE 20 MG TABLET. PO SCH ×2 (09:10→22:15)
--- NOTE | 2018-10-05 10:48 | PDOC ---
Infectious Disease Note Subjective Subjective feeling good ROS ROS no n/v/d/sob Vital Sign Vital Signs Vital Signs Date Time Temp Pulse Resp B/P (MAP) Pulse Ox O2 Delivery O2 Flow Rate FiO2 10/05/18 09:34 16 Room Air 10/05/18 07:00 98.6 63 113/63 (80) 97 98.6 Physical Exam PHYSICAL EXAM GENERAL: Propped up in bed, Coop, NAD HEENT: Normal conjunctivae. Oral cavity, pharynx is clear. NECK: Supple. Good range of motion. LUNGS: Clear to auscultation. HEART: S1, S2. no gross murmur ABDOMEN: Soft, nontender, nondistended with positive bowel sounds. EXTREMITIES: No gross edema or cyanosis SKIN: Warm to touch without signs of rash. Tattoos. NEUROLOGIC: Alert, responds appropriately PICC Labs Lab Laboratory Tests Test 10/04/18 12:25 10/05/18 03:05 White Blood Count 7.3 x10^3/uL (4.0-11.0) Red Blood Count 2.73 x10^6/uL (3.50-5.40) Hemoglobin 8.6 g/dL (12.0-15.5) Hematocrit 24.8 % (36.0-47.0) Mean Corpuscular Volume 91 fL (79-100) Mean Corpuscular Hemoglobin 32 pg (25-35) Mean Corpuscular Hemoglobin Concent 35 g/dL (31-37) Red Cell Distribution Width 15.3 % (11.5-14.5) Platelet Count 236 x10^3/uL (140-400) Neutrophils (%) (Auto) 62 % (31-73) Lymphocytes (%) (Auto) 23 % (24-48) Monocytes (%) (Auto) 7 % (0-9) Eosinophils (%) (Auto) 8 % (0-3) Basophils (%) (Auto) 1 % (0-3) Neutrophils # (Auto) 4.5 x10^3uL (1.8-7.7) Lymphocytes # (Auto) 1.7 x10^3/uL (1.0-4.8) Monocytes # (Auto) 0.5 x10^3/uL (0.0-1.1) Eosinophils # (Auto) 0.6 x10^3/uL (0.0-0.7) Basophils # (Auto) 0.1 x10^3/uL (0.0-0.2) Erythrocyte Sedimentation Rate 50 (0-25) Vancomycin Level Trough 28.6 mcg/mL (10.0-20.0) Vancomycin Last Dose Date 10/04/18 Vancomycin Last Dose Time 0500 Random Vancomycin Level 8.5 mcg/mL Micro BC G neg sheri BC MRSA Objective Assessment MRSA bacteremia (vanc S<=0.5) on 09/27/2018 (while on Dapto) GNR sepsis/bacteremia 09/29 H/o MRSA sepsis/bacteremia (Dapto sensitive 0.25) 09/08 and 09/09. BC were neg 09/10 and 09/13/2018. Left hip pain - XRAY neg but MRI + for abscess s/p I and D 09/13/2018 Chest pain - left upper chest pain/fullness - likely infection, though no definite abscess; improved on CTA 09/27 Left axillary fullness better Right antecubital wound is healed + substance abuse -denies use since discharge Plan Plan of Care Cont Vanc and cefepime Trough 19.1 Probiotics F/u repeat cults 10/02 NGTD Supportive care Awaiting GNR ID/sensitivities OSCAR NEVAREZ MD Oct 05, 2018 10:48
[2018-10-05 11:00] VITALS: BP 119/62
--- NOTE | 2018-10-05 13:38 | PDOC ---
PROGRESS NOTES Chief Complaint Chief Complaint no fevers. doing well. no complaints. Has right IV peripheral line ANASTACIO is negative for vegetations, 10/02/18 Previous had a left PICC line GNR identification/speciation is still pending History of Present Illness History of Present Illness sepsis Staph and GNR Bactermia: cultures 09/27 growing Staph but not known speciation. blood culture now growing GNR. suspect Line infection H/o MRSA sepsis/Bacteremia 09/08 and 09/09 MRSA, neg bc 09/10 and 09/13 Left hip pain - better Chest pain - improved on CTA 09/27. seen by cardiothoracic sx last admission and no surgical intervention + substance abuse , prior Anemia Vitals Vitals Vital Signs Date Time Temp Pulse Resp B/P (MAP) Pulse Ox O2 Delivery O2 Flow Rate FiO2 10/05/18 11:00 98.4 48 18 119/62 (81) 98 Room Air 98.4 Physical Exam Physical Exam GENERAL: Propped up in bed, Coop, NAD HEENT: Normal conjunctivae. Oral cavity, pharynx is clear. NECK: Supple. Good range of motion. LUNGS: Clear to auscultation. HEART: S1, S2. no gross murmur ABDOMEN: Soft, nontender, nondistended with positive bowel sounds. EXTREMITIES: No gross edema or cyanosis SKIN: Warm to touch without signs of rash. Tattoos. NEUROLOGIC: Alert, responds appropriately PICC General: Alert, Oriented X3, Cooperative, No acute distress Heart: Regular rate, Normal S1, Normal S2, No murmurs Lungs: Clear Abdomen: Normal bowel sounds, Soft, No tenderness Extremities: No clubbing, No cyanosis, No edema, Other ( Left hip over trochanteric and gluteal nontender. wound is clean and healed. No erythema/ warmth or fluctuance. no left arm, axillary/upper chest area swelling) Skin: No rashes, No breakdown, No significant lesion Labs LABS Laboratory Tests Test 10/05/18 03:05 Random Vancomycin Level 8.5 mcg/mL Review of Systems Review of Systems no n/v/df feels imrpoved, would like to try to DC home soon Comment Review of Relevant I have reviewed the following items rima (where applicable) has been applied. Labs Laboratory Tests Test 10/04/18 12:25 10/05/18 03:05 White Blood Count 7.3 x10^3/uL (4.0-11.0) Red Blood Count 2.73 x10^6/uL (3.50-5.40) Hemoglobin 8.6 g/dL (12.0-15.5) Hematocrit 24.8 % (36.0-47.0) Mean Corpuscular Volume 91 fL (79-100) Mean Corpuscular Hemoglobin 32 pg (25-35) Mean Corpuscular Hemoglobin Concent 35 g/dL (31-37) Red Cell Distribution Width 15.3 % (11.5-14.5) Platelet Count 236 x10^3/uL (140-400) Neutrophils (%) (Auto) 62 % (31-73) Lymphocytes (%) (Auto) 23 % (24-48) Monocytes (%) (Auto) 7 % (0-9) Eosinophils (%) (Auto) 8 % (0-3) Basophils (%) (Auto) 1 % (0-3) Neutrophils # (Auto) 4.5 x10^3uL (1.8-7.7) Lymphocytes # (Auto) 1.7 x10^3/uL (1.0-4.8) Monocytes # (Auto) 0.5 x10^3/uL (0.0-1.1) Eosinophils # (Auto) 0.6 x10^3/uL (0.0-0.7) Basophils # (Auto) 0.1 x10^3/uL (0.0-0.2) Erythrocyte Sedimentation Rate 50 (0-25) Vancomycin Level Trough 28.6 mcg/mL (10.0-20.0) Vancomycin Last Dose Date 10/04/18 Vancomycin Last Dose Time 0500 Random Vancomycin Level 8.5 mcg/mL Laboratory Tests Test 10/05/18 03:05 Random Vancomycin Level 8.5 mcg/mL Microbiology 10/02/18 Blood Culture - Preliminary, Resulted NO GROWTH AFTER 3 DAYS Medications Current Medications Vancomycin HCl (Vanco Per Pharmacy) 1 each PRN DAILY PRN MC SEE COMMENTS Last administered on 10/05/18at 04:23; Start 09/29/18 at 21:00 Vancomycin HCl 2 gm/Sodium Chloride 500 ml @ 250 mls/hr 1X ONCE IV Last administered on 09/29/18at 21:05; Start 09/29/18 at 21:30; Stop 09/29/18 at 23:29; Status DC Ondansetron HCl (Zofran) 4 mg PRN Q8HRS PRN IV NAUSEA/VOMITING; Start 09/29/18 at 21:45; Stop 09/30/18 at 21:44; Status DC Sodium Chloride 1,000 ml @ 125 mls/hr Q8H IV Last administered on 09/30/18at 13: 32; Start 09/29/18 at 21:32; Stop 09/30/18 at 21:31; Status DC Linezolid/Dextrose 300 ml @ 300 mls/hr Q12HR IV Last administered on 09/30/18at 09:38; Start 09/29/18 at 22:30; Stop 09/30/18 at 10:48; Status DC Piperacillin Sod/ Tazobactam Sod (Zosyn Per Pharmacy) 1 each PRN DAILY PRN MC SEE COMMENTS; Start 09/29/18 at 21:45; Stop 10/01/18 at 08:57; Status DC Piperacillin Sod/ Tazobactam Sod 4.5 gm/Sodium Chloride 100 ml @ 200 mls/hr Q6HRS IV Last administered on 10/01/18at 05:39; Start 09/30/18 at 00:00; Stop 07/10 at 08:57; Status DC Ketorolac Tromethamine (Toradol 30mg Vial) 30 mg PRN Q8HRS PRN IV MODERATE PAIN Last administered on 10/01/18at 20:57; Start 09/29/18 at 22:45; Stop at 22:44; Status DC Meloxicam (Mobic) 7.5 mg DAILY PO Last administered on 10/05/18at 09:10; Start 09/30/18 at 09:00 Mirtazapine (Remeron) 15 mg QHS PO Last administered on 10/01/18at 20:47; Start 09/29/18 at 23:30 Vancomycin HCl 1.25 gm/Sodium Chloride 250 ml @ 167 mls/hr Q8H IV Last administered on 10/04/18at 06:31; Start 09/30/18 at 05:00; Stop 10/04/18 at 13:08 ; Status DC Vancomycin HCl (Vancomycin Trough Level) 1 each 1X ONCE MC Last administered on 09/30/18at 20:30; Start 09/30/18 at 20:30; Stop 09/30/18 at 20:31; Status DC Lactobacillus Rhamnosus (Culturelle) 1 cap BID PO Last administered on at 09:10; Start 09/30/18 at 09:00 Acetaminophen (Tylenol) 500 mg PRN Q6HRS PRN PO MILD PAIN / TEMP; Start at 09:30 Acetaminophen/ Codeine Phosphate (Tylenol #3) 1 tab PRN Q6HRS PRN PO MODERATE PAIN Last administered on 10/05/18at 07:35; Start 10/02/18 at 09:30 Ibuprofen (Motrin) 400 mg PRN Q6HRS PRN PO INFLAMMATION; Start 10/02/18 at 09: 30; Stop 10/02/18 at 10:00; Status DC Ondansetron HCl (Zofran) 4 mg PRN Q6HRS PRN IV NAUSEA/VOMITING; Start 10/02/18 at 09:30 Ondansetron HCl (Zofran Odt) 4 mg PRN Q6HRS PRN PO NAUSEA/VOMITING Last administered on 10/03/18at 21:09; Start 10/02/18 at 09:30 Diphenhydramine HCl (Benadryl) 25 mg PRN QHS PRN PO INSOMNIA; Start 10/02/18 at 09:30 Cefepime HCl (Maxipime) 2 gm Q8HRS IVP Last administered on 10/05/18at 07:15; Start 10/02/18 at 09:30 Famotidine (Pepcid) 20 mg BID PO Last administered on 10/05/18at 09:10; Start at 10:00 Ondansetron HCl (Zofran) 4 mg PRN Q6HRS PRN IV NAUSEA/VOMITING; Start 10/02/18 at 11:15; Stop 10/03/18 at 11:14; Status DC Fentanyl Citrate (Fentanyl 2ml Vial) 25 mcg PRN Q5MIN PRN IV MILD PAIN; Start 10/02/18 at 11:15; Stop 10/03/18 at 11:14; Status DC Fentanyl Citrate (Fentanyl 2ml Vial) 50 mcg PRN Q5MIN PRN IV MODERATE TO SEVERE PAIN; Start 10/02/18 at 11:15; Stop 10/03/18 at 11:14; Status DC Morphine Sulfate (Morphine Sulfate) 1 mg PRN Q10MIN PRN IV SEVERE PAIN; Start 10/02/18 at 11:15; Stop 10/03/18 at 11:14; Status DC Ringer's Solution 1,000 ml @ 30 mls/hr Q24H IV Last administered on 10/02/18at 14:50; Start 10/02/18 at 11:05; Stop 10/02/18 at 23:04; Status DC Lidocaine HCl (Xylocaine-Mpf 1% 2ml Vial) 2 ml 1X PRN PRN ID IV START; Start at 11:15; Stop 10/03/18 at 11:14; Status DC Hydromorphone HCl (Dilaudid) 0.5 mg PRN Q10MIN PRN IV SEV PAIN, Second choice; Start 10/02/18 at 11:15; Stop 10/03/18 at 11:14; Status DC Prochlorperazine Edisylate (Compazine) 5 mg PACU PRN PRN IV NAUSEA, MRX1; Start 10/02/18 at 11:15; Stop 10/03/18 at 11:14; Status DC Lidocaine HCl (Viscous Lidocaine) 15 ml 1X ONCE SWSW Last administered on 10/02at 14:49; Start 10/02/18 at 12:15; Stop 10/02/18 at 12:16; Status DC Lidocaine HCl (Xylocaine 2% Topical 30gm Tube) 1 sidra 1X ONCE TP Last administered on 10/02/18at 14:49; Start 10/02/18 at 12:15; Stop 10/02/18 at 12:16 ; Status DC Benzocaine (Hurricaine One) 3 spray 1X ONCE MM Last administered on 10/02/18at 14:49; Start 10/02/18 at 12:15; Stop 10/02/18 at 12:16; Status DC Propofol 20 ml @ As Directed STK-MED ONCE IV ; Start 10/02/18 at 14:59; Stop 08/10 at 15:01; Status DC Propofol 20 ml @ As Directed STK-MED ONCE IV ; Start 10/02/18 at 14:59; Stop 08/10 at 15:01; Status DC Lidocaine HCl (Lidocaine Pf 2% Vial) 5 ml STK-MED ONCE .ROUTE ; Start 10/02/18 at 14:59; Stop 10/02/18 at 15:01; Status DC Vancomycin HCl (Vancomycin Trough Level) 1 each 1X ONCE MC ; Start 10/04/18 at 12:30; Stop 10/04/18 at 12:31; Status DC Vancomycin HCl 1.5 gm/Sodium Chloride 500 ml @ 250 mls/hr Q12H IV ; Start 10/04 at 13:30; Stop 10/05/18 at 04:04; Status DC Vancomycin HCl (Vancomycin Trough Level) 1 each 1X ONCE MC ; Start 10/05/18 at 03:00; Stop 10/05/18 at 03:00; Status DC Vancomycin HCl (Vancomycin Random Level) 1 each 1X ONCE MC Last administered on 10/05/18at 03:00; Start 10/05/18 at 03:00; Stop 10/05/18 at 03:01; Status DC Vancomycin HCl 1.5 gm/Sodium Chloride 500 ml @ 250 mls/hr Q12H IV Last administered on 10/05/18at 04:26; Start 10/05/18 at 04:00 Vancomycin HCl (Vancomycin Trough Level) 1 each 1X ONCE MC ; Start 10/06/18 at 15:30; Stop 10/06/18 at 15:31 Active Scripts Active [place] 5-325 Tablet (Acetaminophen/Hydrocodone Bitart) 1 Each Tablet 1-2 Each PO PRN Q6HRS PRN as needed for pain Meloxicam 7.5 Mg Tablet 7.5 Mg PO DAILY Percocet 10-325 Mg Tablet (Oxycodone/Acetaminophen) 1 Each Tablet 1 Tab PO PRN Q4HRS PRN Reported Ibuprofen 800 Mg Tablet 800 Mg PO PRN Q6HRS PRN Vitals/I & O Vital Sign - Last 24 Hours 10/04/18 10/04/18 10/04/18 10/04/18 15:00 16:00 19:00 19:45 Temp 98.6 97.8 98.6 97.8 Pulse 68 58 Resp 16 16 B/P (MAP) 118/69 (85) 114/60 (78) Pulse Ox 97 96 O2 Delivery Room Air Room Air Room Air Room Air 10/04/18 10/04/18 10/05/18 10/05/18 22:05 23:00 03:00 07:00 Temp 98.2 98.2 98.6 98.2 98.2 98.6 Pulse 52 52 63 Resp 16 16 16 16 B/P (MAP) 118/61 (80) 109/43 (65) 113/63 (80) Pulse Ox 94 98 97 O2 Delivery Room Air Room Air Room Air Room Air 10/05/18 10/05/18 10/05/18 10/05/18 07:35 08:00 09:34 11:00 Temp 98.4 98.4 Pulse 48 Resp 18 16 18 B/P (MAP) 119/62 (81) Pulse Ox 98 O2 Delivery Room Air Room Air Room Air Room Air Intake and Output 10/04/18 10/04/18 10/05/18 15:01 23:01 07:01 Intake Total 140 ml 490 ml Balance 140 ml 490 ml BERE CAMARILLO MD Oct 05, 2018 13:38
--- NOTE | 2018-10-05 14:58 | NUR ---
SW following for discharge planning. Chart reviewed, discussed with RN. RN advised pt will likely be having a PICC line placed today, and IV abx upon discharge to be determined. Pt has had More SALINAS and Be in the past. SW will continue to follow.
[2018-10-05 15:00] VITALS: BP 124/67
[2018-10-05 19:00] VITALS: BP 131/71
[2018-10-05] MEDS: MIRTAZAPINE 15 MG TABLET PO SCH (21:00)
[2018-10-06 03:00] VITALS: BP 105/53
--- NOTE | 2018-10-06 05:37 | NUR ---
Pt's eMAR cleared and this RN manually administered medications d/t [employer] downtime, see paper chart.
[2018-10-06] MEDS: CEFEPIME HCL IV Push 2 GM VIAL. IVP SCH (05:42)
[2018-10-06] MEDS: VANCOMYCIN 1.5 GM in IV NORMAL SALINE 500ML BAG 500 ML IV SCH (05:47)
[2018-10-06] MEDS: ACETAMINOPHEN/CODEINE 300/30MG TABLET. PO PRN ×2 (05:47→12:49)
[2018-10-06 07:00] VITALS: BP 125/62
[2018-10-06] MEDS: FAMOTIDINE 20 MG TABLET. PO SCH (09:57)
[2018-10-06] MEDS: MELOXICAM 7.5 MG TABLET PO SCH (09:57)
[2018-10-06] MEDS: LACTOBACILLUS RHAMNOSUS GG 1 CAPSULE. PO SCH (09:57)
--- NOTE | 2018-10-06 10:12 | PDOC ---
Infectious Disease Note Subjective Subjective feeling good ROS ROS no n/v/d/fever Vital Sign Vital Signs Vital Signs Date Time Temp Pulse Resp B/P (MAP) Pulse Ox O2 Delivery O2 Flow Rate FiO2 10/06/18 08:00 Room Air 10/06/18 07:00 97.4 44 14 125/62 (83) 97 97.4 Physical Exam PHYSICAL EXAM GENERAL: Propped up in bed, Coop, NAD HEENT: Normal conjunctivae. Oral cavity, pharynx is clear. NECK: Supple. Good range of motion. LUNGS: Clear to auscultation. HEART: S1, S2. no gross murmur ABDOMEN: Soft, nontender, nondistended with positive bowel sounds. EXTREMITIES: No gross edema or cyanosis SKIN: Warm to touch without signs of rash. Tattoos. NEUROLOGIC: Alert, responds appropriately PICC Labs Micro BLOOD CULTURE LC Final Final report BLD CULT RESULT 1 Final Acinetobacter junii ANTIMICROBIAL SUSCEPTIBILITY Final Comment S = Susceptible; I = Intermediate; R = Resistant P = Positive; N = Negative MICS are expressed in micrograms per mL Antibiotic RSLT#1 RSLT#2 RSLT#3 RSLT#4 Ampicillin/Sulbactam S<=2 Cefepime S<=1 Cefotaxime S =4 Ceftazidime S =4 Ceftriaxone S =8 Ciprofloxacin S<=0.25 Gentamicin S<=1 Imipenem S<=1 Meropenem S<=0.25 Piperacillin S<=4 Tetracycline S<=1 Tobramycin S<=1 Trimethoprim/Sulfa S<=20 Performed at: - [facility], [place], [place] [id number] Magician/Illusionist: SOLIS Vazquez MD, Phone: [phone] Objective Assessment MRSA bacteremia (vanc S<=0.5) on 09/27/2018 (while on Dapto) GNR sepsis/bacteremia 09/29 H/o MRSA sepsis/bacteremia (Dapto sensitive 0.25) 09/08 and 09/09. BC were neg 09/10 and 09/13/2018. Left hip pain - XRAY neg but MRI + for abscess s/p I and D 09/13/2018 Chest pain - left upper chest pain/fullness - likely infection, though no definite abscess; improved on CTA 09/27 Left axillary fullness better Right antecubital wound is healed + substance abuse -denies use since discharge Plan Plan of Care change cefepime to po cipro for 7 days daptomycin ( ANN .25) Probiotics F/u repeat cults 10/02 NGTD Supportive care picc, la to d/c on dapto , for her to come here for iv f/u with me in 2 wks wkly cbc, bun/cr, cpk OSCAR NEVAREZ MD Oct 06, 2018 10:12
[2018-10-06 11:00] VITALS: BP 120/61
[2018-10-06] MEDS ORDERED: DAPTOmycin (GENERIC) IVPB 500 MG in IV NORMAL SALINE 50ML 50 ML IV SCH (11:00)
[2018-10-06] MEDS ORDERED: LORazepam 0.5 MG TABLET PO ONE (11:00)
--- NOTE | 2018-10-06 11:04 | NUR ---
SW following for discharge planning. Chart reviewed, discussed with RN. Discussed with Dr. Mancera, pt will go to outpatient for IV abx of Daptomycin 500mg IV q daily for 6 weeks. SW faxed script to outpatient ([id number]). Per RN, pt will need PICC line placed. SW will continue to follow.
--- NOTE | 2018-10-06 11:27 | NUR ---
spoke with dr stockton at this time about pt left buttock stitches due to him preforming the surgery in aug. he stated to cut the clear strings on each end to the skin and the rest will dissolve. will inform pt and will continue to monitor.
--- NOTE | 2018-10-06 11:37 | PDOC ---
PROGRESS NOTES Chief Complaint Chief Complaint Chest pain History of Present Illness History of Present Illness Patient was seen and examined today. She is doing well, being calm and cooperative and alert and oriented x 3. We discussed her four children. She is concerned with some sutures still present from treatment of a prior abscess on her bottom and is hoping to have them removed. We also discussed with the patient the need to stop her abuse of controlled and/or illegal substances. Vitals Vitals Vital Signs Date Time Temp Pulse Resp B/P (MAP) Pulse Ox O2 Delivery O2 Flow Rate FiO2 10/06/18 08:00 Room Air 10/06/18 07:00 97.4 44 14 125/62 (83) 97 97.4 Physical Exam Physical Exam GENERAL: Propped up in bed, Coop, NAD HEENT: Normal conjunctivae. Oral cavity, pharynx is clear. NECK: Supple. Good range of motion. LUNGS: Clear to auscultation. HEART: S1, S2. no gross murmur ABDOMEN: Soft, nontender, nondistended with positive bowel sounds. EXTREMITIES: No gross edema or cyanosis SKIN: Warm to touch without signs of rash. Tattoos. NEUROLOGIC: Alert, responds appropriately PICC General: Alert, Oriented X3, Cooperative, No acute distress Heart: Regular rate, Normal S1, Normal S2, No murmurs Lungs: Clear Abdomen: Normal bowel sounds, Soft, No tenderness Extremities: No clubbing, No cyanosis, No edema, Other ( Left hip over trochanteric and gluteal nontender. wound is clean and healed. No erythema/ warmth or fluctuance. no left arm, axillary/upper chest area swelling) Skin: No rashes, No breakdown, No significant lesion Review of Systems Review of Systems Heart: Denies chest pain Lung: Denies SOA Integument: Concerned about remaining sutures from prior abscess. Assessment and Plan Assessmemt and Plan Assessment: 1. Sepsis 2. Staph and GNR Bactermia 3. Substance abuse, oxycodone and meth 4. Anemia Plan: 1. Receive PICC line in order to receive outpatient antibiotic infusions 2. Remove remaining sutures from buttocks 3. Plan to discharge Comment Review of Relevant I have reviewed the following items rima (where applicable) has been applied. Labs Laboratory Tests Test 10/04/18 12:25 10/05/18 03:05 White Blood Count 7.3 x10^3/uL (4.0-11.0) Red Blood Count 2.73 x10^6/uL (3.50-5.40) Hemoglobin 8.6 g/dL (12.0-15.5) Hematocrit 24.8 % (36.0-47.0) Mean Corpuscular Volume 91 fL (79-100) Mean Corpuscular Hemoglobin 32 pg (25-35) Mean Corpuscular Hemoglobin Concent 35 g/dL (31-37) Red Cell Distribution Width 15.3 % (11.5-14.5) Platelet Count 236 x10^3/uL (140-400) Neutrophils (%) (Auto) 62 % (31-73) Lymphocytes (%) (Auto) 23 % (24-48) Monocytes (%) (Auto) 7 % (0-9) Eosinophils (%) (Auto) 8 % (0-3) Basophils (%) (Auto) 1 % (0-3) Neutrophils # (Auto) 4.5 x10^3uL (1.8-7.7) Lymphocytes # (Auto) 1.7 x10^3/uL (1.0-4.8) Monocytes # (Auto) 0.5 x10^3/uL (0.0-1.1) Eosinophils # (Auto) 0.6 x10^3/uL (0.0-0.7) Basophils # (Auto) 0.1 x10^3/uL (0.0-0.2) Erythrocyte Sedimentation Rate 50 (0-25) Vancomycin Level Trough 28.6 mcg/mL (10.0-20.0) Vancomycin Last Dose Date 10/04/18 Vancomycin Last Dose Time 0500 Random Vancomycin Level 8.5 mcg/mL Microbiology 10/02/18 Blood Culture - Preliminary, Resulted NO GROWTH AFTER 4 DAYS Medications Current Medications Vancomycin HCl (Vanco Per Pharmacy) 1 each PRN DAILY PRN MC SEE COMMENTS Last administered on 10/05/18at 04:23; Start 09/29/18 at 21:00; Stop 10/06/18 at 10:24 ; Status DC Vancomycin HCl 2 gm/Sodium Chloride 500 ml @ 250 mls/hr 1X ONCE IV Last administered on 09/29/18at 21:05; Start 09/29/18 at 21:30; Stop 09/29/18 at 23:29; Status DC Ondansetron HCl (Zofran) 4 mg PRN Q8HRS PRN IV NAUSEA/VOMITING; Start 09/29/18 at 21:45; Stop 09/30/18 at 21:44; Status DC Sodium Chloride 1,000 ml @ 125 mls/hr Q8H IV Last administered on 09/30/18at 13: 32; Start 09/29/18 at 21:32; Stop 09/30/18 at 21:31; Status DC Linezolid/Dextrose 300 ml @ 300 mls/hr Q12HR IV Last administered on 09/30/18at 09:38; Start 09/29/18 at 22:30; Stop 09/30/18 at 10:48; Status DC Piperacillin Sod/ Tazobactam Sod (Zosyn Per Pharmacy) 1 each PRN DAILY PRN MC SEE COMMENTS; Start 09/29/18 at 21:45; Stop 10/01/18 at 08:57; Status DC Piperacillin Sod/ Tazobactam Sod 4.5 gm/Sodium Chloride 100 ml @ 200 mls/hr Q6HRS IV Last administered on 10/01/18at 05:39; Start 09/30/18 at 00:00; Stop 07/10 at 08:57; Status DC Ketorolac Tromethamine (Toradol 30mg Vial) 30 mg PRN Q8HRS PRN IV MODERATE PAIN Last administered on 10/01/18at 20:57; Start 09/29/18 at 22:45; Stop at 22:44; Status DC Meloxicam (Mobic) 7.5 mg DAILY PO Last administered on 10/06/18at 09:57; Start 09/30/18 at 09:00 Mirtazapine (Remeron) 15 mg QHS PO Last administered on 10/01/18at 20:47; Start 09/29/18 at 23:30 Vancomycin HCl 1.25 gm/Sodium Chloride 250 ml @ 167 mls/hr Q8H IV Last administered on 10/04/18at 06:31; Start 09/30/18 at 05:00; Stop 10/04/18 at 13:08 ; Status DC Vancomycin HCl (Vancomycin Trough Level) 1 each 1X ONCE MC Last administered on 09/30/18at 20:30; Start 09/30/18 at 20:30; Stop 09/30/18 at 20:31; Status DC Lactobacillus Rhamnosus (Culturelle) 1 cap BID PO Last administered on at 09:57; Start 09/30/18 at 09:00 Acetaminophen (Tylenol) 500 mg PRN Q6HRS PRN PO MILD PAIN / TEMP; Start at 09:30 Acetaminophen/ Codeine Phosphate (Tylenol #3) 1 tab PRN Q6HRS PRN PO MODERATE PAIN Last administered on 10/06/18at 05:47; Start 10/02/18 at 09:30 Ibuprofen (Motrin) 400 mg PRN Q6HRS PRN PO INFLAMMATION; Start 10/02/18 at 09: 30; Stop 10/02/18 at 10:00; Status DC Ondansetron HCl (Zofran) 4 mg PRN Q6HRS PRN IV NAUSEA/VOMITING; Start 10/02/18 at 09:30 Ondansetron HCl (Zofran Odt) 4 mg PRN Q6HRS PRN PO NAUSEA/VOMITING Last administered on 10/03/18at 21:09; Start 10/02/18 at 09:30 Diphenhydramine HCl (Benadryl) 25 mg PRN QHS PRN PO INSOMNIA; Start 10/02/18 at 09:30 Cefepime HCl (Maxipime) 2 gm Q8HRS IVP Last administered on 10/06/18at 05:42; Start 10/02/18 at 09:30; Stop 10/06/18 at 10:22; Status DC Famotidine (Pepcid) 20 mg BID PO Last administered on 10/06/18at 09:57; Start at 10:00 Ondansetron HCl (Zofran) 4 mg PRN Q6HRS PRN IV NAUSEA/VOMITING; Start 10/02/18 at 11:15; Stop 10/03/18 at 11:14; Status DC Fentanyl Citrate (Fentanyl 2ml Vial) 25 mcg PRN Q5MIN PRN IV MILD PAIN; Start 10/02/18 at 11:15; Stop 10/03/18 at 11:14; Status DC Fentanyl Citrate (Fentanyl 2ml Vial) 50 mcg PRN Q5MIN PRN IV MODERATE TO SEVERE PAIN; Start 10/02/18 at 11:15; Stop 10/03/18 at 11:14; Status DC Morphine Sulfate (Morphine Sulfate) 1 mg PRN Q10MIN PRN IV SEVERE PAIN; Start 10/02/18 at 11:15; Stop 10/03/18 at 11:14; Status DC Ringer's Solution 1,000 ml @ 30 mls/hr Q24H IV Last administered on 10/02/18at 14:50; Start 10/02/18 at 11:05; Stop 10/02/18 at 23:04; Status DC Lidocaine HCl (Xylocaine-Mpf 1% 2ml Vial) 2 ml 1X PRN PRN ID IV START; Start at 11:15; Stop 10/03/18 at 11:14; Status DC Hydromorphone HCl (Dilaudid) 0.5 mg PRN Q10MIN PRN IV SEV PAIN, Second choice; Start 10/02/18 at 11:15; Stop 10/03/18 at 11:14; Status DC Prochlorperazine Edisylate (Compazine) 5 mg PACU PRN PRN IV NAUSEA, MRX1; Start 10/02/18 at 11:15; Stop 10/03/18 at 11:14; Status DC Lidocaine HCl (Viscous Lidocaine) 15 ml 1X ONCE SWSW Last administered on 10/02at 14:49; Start 10/02/18 at 12:15; Stop 10/02/18 at 12:16; Status DC Lidocaine HCl (Xylocaine 2% Topical 30gm Tube) 1 sidra 1X ONCE TP Last administered on 10/02/18at 14:49; Start 10/02/18 at 12:15; Stop 10/02/18 at 12:16 ; Status DC Benzocaine (Hurricaine One) 3 spray 1X ONCE MM Last administered on 10/02/18at 14:49; Start 10/02/18 at 12:15; Stop 10/02/18 at 12:16; Status DC Propofol 20 ml @ As Directed STK-MED ONCE IV ; Start 10/02/18 at 14:59; Stop 08/10 at 15:01; Status DC Propofol 20 ml @ As Directed STK-MED ONCE IV ; Start 10/02/18 at 14:59; Stop 08/10 at 15:01; Status DC Lidocaine HCl (Lidocaine Pf 2% Vial) 5 ml STK-MED ONCE .ROUTE ; Start 10/02/18 at 14:59; Stop 10/02/18 at 15:01; Status DC Vancomycin HCl (Vancomycin Trough Level) 1 each 1X ONCE MC ; Start 10/04/18 at 12:30; Stop 10/04/18 at 12:31; Status DC Vancomycin HCl 1.5 gm/Sodium Chloride 500 ml @ 250 mls/hr Q12H IV ; Start 10/04 at 13:30; Stop 10/05/18 at 04:04; Status DC Vancomycin HCl (Vancomycin Trough Level) 1 each 1X ONCE MC ; Start 10/05/18 at 03:00; Stop 10/05/18 at 03:00; Status DC Vancomycin HCl (Vancomycin Random Level) 1 each 1X ONCE MC Last administered on 10/05/18at 03:00; Start 10/05/18 at 03:00; Stop 10/05/18 at 03:01; Status DC Vancomycin HCl 1.5 gm/Sodium Chloride 500 ml @ 250 mls/hr Q12H IV Last administered on 10/06/18at 05:47; Start 10/05/18 at 04:00; Stop 10/06/18 at 10:22 ; Status DC Vancomycin HCl (Vancomycin Trough Level) 1 each 1X ONCE MC ; Start 10/06/18 at 15:30; Stop 10/06/18 at 15:31; Status Cancel Ciprofloxacin (Cipro) 500 mg BID PO ; Start 10/06/18 at 21:00 Daptomycin 500 mg/ Sodium Chloride 50 ml @ 100 mls/hr Q24H IV ; Start 10/06/18 at 11:00 Lorazepam (Ativan) 0.5 mg 1X ONCE PO ; Start 10/06/18 at 11:00; Stop 10/06/18 at 11:01; Status DC Active Scripts Active [place] 5-325 Tablet (Acetaminophen/Hydrocodone Bitart) 1 Each Tablet 1-2 Each PO PRN Q6HRS PRN as needed for pain Meloxicam 7.5 Mg Tablet 7.5 Mg PO DAILY Percocet 10-325 Mg Tablet (Oxycodone/Acetaminophen) 1 Each Tablet 1 Tab PO PRN Q4HRS PRN Reported Ibuprofen 800 Mg Tablet 800 Mg PO PRN Q6HRS PRN Vitals/I & O Vital Sign - Last 24 Hours 10/05/18 10/05/18 10/05/18 10/05/18 15:00 15:10 19:00 19:45 Temp 98.5 98.5 Pulse 55 52 Resp 18 16 18 B/P (MAP) 124/67 (86) 131/71 (91) Pulse Ox 97 93 O2 Delivery Room Air Room Air Room Air Room Air 10/05/18 10/06/18 10/06/18 10/06/18 22:15 03:00 05:47 06:50 Temp 98.6 98.6 Pulse 57 Resp 18 17 16 18 B/P (MAP) 105/53 (70) Pulse Ox 96 O2 Delivery Room Air Room Air Room Air Room Air 10/06/18 10/06/18 07:00 08:00 Temp 97.4 97.4 Pulse 44 Resp 14 B/P (MAP) 125/62 (83) Pulse Ox 97 O2 Delivery Room Air Room Air Intake and Output 10/05/18 10/05/18 10/06/18 15:01 23:01 07:01 Intake Total 575 ml 600 ml 240 ml Balance 575 ml 600 ml 240 ml MADELEINE RAHMAN III DO Oct 06, 2018 11:37
--- NOTE | 2018-10-06 13:11 | RAD ---
Exam: Fluoroscopic and ultrasound guided right percutaneous inserted central venous catheter placement 10/06/2018 1:05 PM .Indication: Long-term IV antibiotics Technique: Informed oral and written consent were obtained. The right upper extremity was prepped and draped using sterile barrier technique. All elements of maximal sterile barrier technique including the use of a cap, mask, sterile gown, sterile gloves, large sterile sheet, appropriate hand hygiene, and 2% chlorhexidine for cutaneous antisepsis (or acceptable alternative antiseptic per current guidelines) were followed for this procedure.. Real-time ultrasound demonstrated a patent right basilic vein. The right upper extremity was prepped and draped in usual sterile fashion. 1% lidocaine used for local anesthesia. Using real-time ultrasound guidance the access needle percutaneously punctured the selected vein. Reference ultrasound images were saved to the medical record. A guidewire was advanced through the needle to the cavoatrial junction, and a peel-away sheath placed. The catheter was cut to length and inserted through the peel-away sheath such that its tip is at the cavoatrial junction. The wire and sheath were removed, and the catheter secured in place, and a sterile dressing was applied. Catheter was found to flush and aspirate normally. No immediate complications are identified. FLUORO TIME: FLUORO TIME: 0.9 MIN DOSE AREA PRODUCT: 2 Gycm2 Impression: Ultrasound and fluoroscopically guided placement of a right upper extremity PICC line.
--- NOTE | 2018-10-06 14:54 | NUR ---
SW following for discharge planning. Pt will have IV abx outpatient appointment at [facility] at 1400 beginning tomorrow (10/07/18). No further SW needs, pt will discharge home with self care today.
[2018-10-06 15:00] VITALS: BP 130/77
--- NOTE | 2018-10-06 15:36 | NUR ---
pt is discharged home with outpatient services via ambulation via this RN at 1510. pt is in stable condition. pt has all belongings with her. pt received discharge instructions and prescriptions and stated she had no further questions for me. pt has new PICC line in place. pt received her first dose of daptomycin here at 1243 and will come to outpatient here tomorrow at 1400 for her next treatment. pt already scheduled her follow up appointment with dr rendon. pt was sent home with information on her PICC line that this RN informed her to bring to outpatient therapy with her in case they need it. Addendum: 10/06/18 at 1545 by MIKAELA TORRES RN RN pt denied need for pain prescription
[2018-10-06] MEDS ORDERED: CIPROFLOXACIN HCL 250 MG TABLET. PO SCH (21:00)
--- NOTE | 2018-10-28 12:16 | DS ---
DATE OF DISCHARGE: 10/06/2018 ADMISSION DIAGNOSIS: Bacteremia. DISCHARGE DIAGNOSIS: Resolving bacteremia. HOSPITAL COURSE: The patient is a pleasant 28-year-old female who presented with bacteremia. She was admitted. We gave her IV antibiotics and fluids and consulted Infectious Disease. Over next week or so, she did better. We discharged to home with p.o. antibiotics. DISPOSITION: Home. ACTIVITY: As tolerated. DIET: Low sodium. MEDICATIONS: Please see the MRAD. TOTAL TIME: 32 minutes. MADELEINE RAHMAN DO DR: IAN/khurram JOB#: [id number] / [id number]
[2019-02-26] MEDS ORDERED: SULF1TAB24 PO (11:47)
[2019-02-26] MEDS ORDERED: CEPH500T PO (11:47)
[2019-02-26] MEDS ORDERED: TRAM50TA PO (11:47)
[2019-04-17] MEDS ORDERED: CLON0.1T12 PO (14:02)
[2019-04-17] MEDS ORDERED: LINE600T PO (14:02)
[2019-04-17] MEDS ORDERED: TRAZ-86 PO (14:02)
== END 2018-10-06 15:10 | disposition home or self-care (01) | DRG 314 ==
LOC: ER 17:16 → 4 NORTH 20:00
PROVIDERS: ADMIT Internal Medicine; ATTEND Internal Medicine
PROC: B24BZZ4 Ultrasonography of Heart with Aorta, Transesophageal (ICD-10-PCS; principal; 2018-09-29)
PROC: 02HV33Z Insertion of Infusion Device into Superior Vena Cava, Percutaneous Approach (ICD-10-PCS; 2018-10-06)
PROC: B5181ZA Fluoroscopy of Superior Vena Cava using Low Osmolar Contrast, Guidance (ICD-10-PCS; 2018-10-06)
PROC: B548ZZA Ultrasonography of Superior Vena Cava, Guidance (ICD-10-PCS; 2018-10-06)
DX: T80.211A Bloodstream infection due to central venous catheter, initial encounter (principal); A41.02 Sepsis due to Methicillin resistant Staphylococcus aureus; B96.89 Other specified bacterial agents as the cause of diseases classified elsewhere; D64.9 Anemia, unspecified; F41.9 Anxiety disorder, unspecified; F15.10 Other stimulant abuse, uncomplicated; G47.00 Insomnia, unspecified; K21.9 Gastro-esophageal reflux disease without esophagitis; Z82.49 Family history of ischemic heart disease and other diseases of the circulatory system; Z86.14 Personal history of Methicillin resistant Staphylococcus aureus infection; Z98.51 Tubal ligation status
CPT/HCPCS: 36415; 36569; 71045; 76937; 77001; 80048; 80053; 80202; 82550; 82565; 84145; 84703; 85025; 85651; 86140; 87040; 87186; 87205; 93312; 93325; 99285; C1751; C1769; C1892; J0692; J0878; J1885; J2001; J2020; J2543; J2704; J3370; J7030; J7040; J7050; J7120; Q0162; G0378

== ENCOUNTER 2019-06-22 12:25 | Emergency (ER) | payer MEDICAID ==
[~2019-06-22] VITALS: Ht 157.5 cm; Wt 71.2 kg
[~2019-06-22 12:25] MED LIST changes: +CEPH500T PO; +CLON0.1T12 PO; +LINE600T12 PO; +TRAM50TA PO; +TRAZ-86 PO
[2019-06-22 12:37] VITALS: BP 126/74
--- NOTE | 2019-06-22 12:56 | PHYS DOC ---
Past Medical History Past Medical History: Pneumonia, Other Additional Past Medical Histor: plantar fasciitis; MRSA; Abscess Past Surgical History: Tubal ligation, Other Additional Past Surgical Histo: I&D Alcohol Use: None Drug Use: Methamphetamine, Opiates Social History Narrative: last used jun 21 Adult General Chief Complaint Chief Complaint: FEVER HPI HPI Patient is a 29 year old female that presents stating that she's been shooting up opioids, and had a fever last night. The patient states she's been having right upper arm pain that goes all the way up to her right neck. Patient denies any other symptoms. The patient states that she is a hard nodule in the right upper arm and her neck. The patient states that she last used yesterday and she is oxycodone. Rates her pain as 10 out of 10 in severity. Review of Systems Review of Systems Constitutional: Reports fever or chills [] Eyes: Denies change in visual acuity, redness, or eye pain [] HENT: Denies nasal congestion or sore throat [] Respiratory: Denies cough or shortness of breath [] Cardiovascular: No additional information not addressed in HPI [] GI: Denies abdominal pain, nausea, vomiting, bloody stools or diarrhea [] : Denies dysuria or hematuria [] Musculoskeletal: Reports right upper arm pain. Integument: Denies rash or skin lesions [] Neurologic: Denies headache, focal weakness or sensory changes [] Endocrine: Denies polyuria or polydipsia [] Complete systems were reviewed and found to be within normal limits, except as documented in this note. Allergies Allergies Allergies Coded Allergies Type Severity Reaction Last Updated Verified I S O L A T I O N *CONTACT* Allergy Unknown 11/06/18 Yes No Known Medication Allergies Allergy Unknown 11/06/18 Yes Physical Exam Physical Exam Constitutional: Well developed, well nourished, no acute distress, non-toxic appearance. [] HENT: Normocephalic, atraumatic, bilateral external ears normal, oropharynx m oist, no oral exudates, nose normal. [] Eyes: PERRLA, EOMI, conjunctiva normal, no discharge. [] Neck: Normal range of motion, no tenderness, supple, no stridor. [] Cardiovascular:Heart rate regular rhythm, no murmur [] Lungs & Thorax: Bilateral breath sounds clear to auscultation [] Abdomen: Bowel sounds normal, soft, no tenderness, no masses, no pulsatile masses. [] Skin: Warm, dry, no erythema, no rash. [] Back: No tenderness, no CVA tenderness. [] Extremities: Has tenderness in her right upper arm with tenderness by nodule this radiates up the right upper neck. Neurologic: Alert and oriented X 3, normal motor function, normal sensory function, no focal deficits noted. [] Psychologic: Affect normal, judgement normal, mood normal. [] Current Patient Data Vital Signs Vital Signs Date Time Temp Pulse Resp B/P (MAP) Pulse Ox O2 Delivery O2 Flow Rate FiO2 06/22/19 12:37 98.0 66 16 126/74 (91) 97 Room Air 98.0 Lab Values Laboratory Tests Test 06/22/19 13:15 White Blood Count 8.9 x10^3/uL (4.0-11.0) Red Blood Count 4.15 x10^6/uL (3.50-5.40) Hemoglobin 11.0 g/dL (12.0-15.5) L Hematocrit 33.8 % (36.0-47.0) L Mean Corpuscular Volume 81 fL (79-100) Mean Corpuscular Hemoglobin 26 pg (25-35) Mean Corpuscular Hemoglobin Concent 33 g/dL (31-37) Red Cell Distribution Width 18.0 % (11.5-14.5) H Platelet Count 234 x10^3/uL (140-400) Neutrophils (%) (Auto) 69 % (31-73) Lymphocytes (%) (Auto) 22 % (24-48) L Monocytes (%) (Auto) 7 % (0-9) Eosinophils (%) (Auto) 1 % (0-3) Basophils (%) (Auto) 0 % (0-3) Neutrophils # (Auto) 6.2 x10^3/uL (1.8-7.7) Lymphocytes # (Auto) 2.0 x10^3/uL (1.0-4.8) Monocytes # (Auto) 0.6 x10^3/uL (0.0-1.1) Eosinophils # (Auto) 0.1 x10^3/uL (0.0-0.7) Basophils # (Auto) 0.0 x10^3/uL (0.0-0.2) Prothrombin Time 13.9 SEC (11.7-14.0) Prothrombin Time INR 1.1 (0.8-1.1) Sodium Level 141 mmol/L (136-145) Potassium Level 4.0 mmol/L (3.5-5.1) Chloride Level 105 mmol/L (98-107) Carbon Dioxide Level 28 mmol/L (21-32) Anion Gap 8 (6-14) Blood Urea Nitrogen 12 mg/dL (7-20) Creatinine 0.7 mg/dL (0.6-1.0) Estimated GFR (Cockcroft-Gault) 99.6 BUN/Creatinine Ratio 17 (6-20) Glucose Level 108 mg/dL (70-99) H Calcium Level 9.0 mg/dL (8.5-10.1) Total Bilirubin 0.2 mg/dL (0.2-1.0) Aspartate Amino Transferase (AST) 16 U/L (15-37) Alanine Aminotransferase (ALT) 31 U/L (14-59) Alkaline Phosphatase 94 U/L (46-116) KI-Kat-B-Type Natriuretic Peptide 154 pg/mL (0-124) H Total Protein 7.9 g/dL (6.4-8.2) Albumin 3.4 g/dL (3.4-5.0) Albumin/Globulin Ratio 0.8 (1.0-1.7) L Laboratory Tests 06/22/19 13:15 Laboratory Tests 06/22/19 13:15 EKG EKG [] Radiology/Procedures Radiology/Procedures [][facility] [address] [place], [place] [id number] IMAGING REPORT Signed PATIENT: RENE CONTRERAS ACCOUNT: [id number] : 1990 LOCATION: ER AGE: 29 SEX: F EXAM STATUS: REG ER ORD. PHYSICIAN: DON PERRY APRN REASON: pain/nodule in right upper arm after drug injection PROCEDURE: VENOUS UPPER EXTREMITY RIGHT Examination: VENOUS UPPER EXTREMITY RIGHT History: Pain, nodule in the right upper extremity after drug injection Comparison/Correlation: None FINDINGS: Grayscale and Doppler analysis of the right upper extremity deep venous system was performed with graded compression and augmentation. The internal jugular, subclavian, axillary, brachial, basilic, cephalic, radial and ulnar veins were assessed. There is no evidence of deep venous thrombosis. Mildly complex fluid collection in the area of reported palpable abnormality at the proximal right vertebral artery measures 1.2 cm x 0.8 cm x 0.6 cm it is irregular in morphology with no flow on color Doppler imaging. IMPRESSION: No evidence of right upper extremity deep venous thrombosis. Small mildly complex fluid within the subcutaneous region of the site of reported palpable abnormality. Electronically signed by: Prateek Fletcher MD (06/22/2019 2:32 PM) [facility] DICTATED and SIGNED BY: PRATEEK FLETCHER MD DATE: 06/22/19 1435 Course & Med Decision Making Course & Med Decision Making Pertinent Labs and Imaging studies reviewed. (See chart for details) Will get labs, and ultrasound of upper arm and right upper neck. The patient admits to injecting herself with oxycodone. Labs and ultrasound are unremarkable with exception of fluid collection. Will d/c home and place on Bactrim and Keflex. Will have patient return in 48 hours for wound recheck. Dragon Disclaimer Dragon Disclaimer This electronic medical record was generated, in whole or in part, using a voice recognition dictation system. Departure Departure Impression: Primary Impression: Abscess of right arm Disposition: HOME, SELF-CARE Condition: STABLE Referrals: NO PCP (PCP) Patient Instructions: Abscess Additional Instructions: Thank you for visiting [facility]. We appreciate you trusting us with your care. If any additional problems come up don't hesitate to return to visit us. Please follow up with your primary care provider so they can plan additional care if needed and know about the problem that you had. If symptoms worsen come back to the Emergency Department. Any concerning symptoms that start such as chest pain, shortness of air, weakness or numbness on one side of the body, running high fevers or any other concerning symptoms return to the ER. Please stop injecting yourself with drugs. Please return in 48 hours for wound recheck. You have been prescribed an antibiotic today to help fight your infection. Please take all of the antibiotic as directed. If after 48 hours the infection is not improving, please return for more care. If the infection worsens, return to ER for additional care. Scripts Cephalexin (KEFLEX) 500 Mg Capsule 1 CAP PO BID for 7 Days, #14 CAP Prov: DON PERRY APRN 06/22/19 Sulfamethoxazole/Trimethoprim (BACTRIM DS TABLET) 1 Each Tablet 1 TAB PO BID for 7 Days, #14 TAB Prov: DON PERRY APRN 06/22/19 DON PERRY APRN Jun 22, 2019 12:56
[2019-06-22 13:22] LABS: BASO % 0 % (0-3); EOS # 0.1 x10^3/uL (0.0-0.7); EOS % 1 % (0-3); HEMATOCRIT 33.8 % (36.0-47.0); LYMPH % 22 % (24-48); MEAN CORPUSCULAR HEMOGLOBIN 26 pg (25-35); MEAN CORPUSCULAR HGB CONC 33 g/dL (31-37); MEAN CORPUSCULAR VOLUME 81 fL (79-100); MONO # 0.6 x10^3/uL (0.0-1.1); MONO % 7 % (0-9); NEUT # 6.2 x10^3/uL (1.8-7.7); NEUT % 69 % (31-73); PLATELET COUNT 234 x10^3/uL (140-400); RED BLOOD COUNT 4.15 x10^6/uL (3.50-5.40); WHITE BLOOD COUNT 8.9 x10^3/uL (4.0-11.0)
[2019-06-22 13:32] LABS: CREATININE 0.7 mg/dL (0.6-1.0); GFR 99.6
[2019-06-22 13:39] LABS: ALBUMIN 3.4 g/dL (3.4-5.0); ALBUMIN/GLOBULIN RATIO 0.8 (1.0-1.7); TOTAL BILIRUBIN 0.2 mg/dL (0.2-1.0); TOTAL PROTEIN 7.9 g/dL (6.4-8.2)
[2019-06-22 13:40] LABS: PROTHROMBIN TIME PATIENT 13.9 SEC (11.7-14.0)
--- NOTE | 2019-06-22 14:35 | RAD ---
Examination: VENOUS UPPER EXTREMITY RIGHT History: Pain, nodule in the right upper extremity after drug injection Comparison/Correlation: None FINDINGS: Grayscale and Doppler analysis of the right upper extremity deep venous system was performed with graded compression and augmentation. The internal jugular, subclavian, axillary, brachial, basilic, cephalic, radial and ulnar veins were assessed. There is no evidence of deep venous thrombosis. Mildly complex fluid collection in the area of reported palpable abnormality at the proximal right vertebral artery measures 1.2 cm x 0.8 cm x 0.6 cm it is irregular in morphology with no flow on color Doppler imaging. IMPRESSION: No evidence of right upper extremity deep venous thrombosis. Small mildly complex fluid within the subcutaneous region of the site of reported palpable abnormality. Electronically signed by: Baljeet Cutler MD (06/22/2019 2:32 PM) [facility]
--- NOTE | 2019-06-22 14:57 | RAD ---
Examination: DOPPLER CAROTID BILATERAL History: Pain, nodule in the right upper extremity after drug injection Comparison/Correlation: None Findings: The bilateral common, internal and external carotid arteries were examined by grayscale, color and spectral Doppler ultrasound. There is no evidence of atherosclerotic disease or significant stenosis in the visualized vessels. Flow in both vertebral arteries was antegrade and normal. The following are the velocities and ratios in the carotid arteries on both sides: RIGHT ICA PV: 94cm/sec RIGHT CCA PV: 116cm/sec RIGHT ICA ED: 30cm/sec RIGHT IC/CCPV: 0.97 RIGHT VERTEBRAL: antegrade flow LEFT ICA PV: 97cm/sec LEFT CCA PV: 100cm/sec LEFT ICA ED: 43 cm/sec LEFT IC/CCPV: 1.01 LEFT VERTEBRAL: antegrade flow <50% ICA Stenosis: PSV < 125cm/s (EDV < 40cm/s; SVR < 2.0) 50-69% ICA Stenosis: PSV < 125-229cm/s (EDV 40-99cm/s; SVR 2.0-3.9) >70% ICA Stenosis: PSV > 230cm/s (EDV >100cm/s; SVR >4.0) Impression: Normal bilateral carotid and vertebral artery spectral and color Doppler analysis exam. No significant hemodynamic stenosis. PQRS Compliance Statement - Stenosis calculations for CT, MR and conventional angiography are based upon measurement of the distal ICA diameter in accordance with the NASCET methodology. Stenosis calculations for carotid ultrasound studies are derived from validated velocity criteria which are known to correlate with the NASCET methodology. Electronically signed by: Baljeet Cutler MD (06/22/2019 2:54 PM) [facility]
[2019-06-22] MEDS ORDERED: CEPH-264 PO (15:27)
[2019-06-22] MEDS ORDERED: SULF1TAB24 PO (15:27)
== END 2019-06-22 15:32 | disposition home or self-care (01) ==
LOC: ER 12:25
DX: L02.413 Cutaneous abscess of right upper limb (principal); R50.9 Fever, unspecified; Z91.041 Radiographic dye allergy status
CPT/HCPCS: 36415; 80053; 83880; 85025; 85610; 93880; 93971; 99285-25

== ENCOUNTER 2020-11-16 18:09 | Emergency (ER) | payer MEDICAID ==
[~2020-11-16] VITALS: Ht 167.6 cm; Wt 68.2 kg
[~2020-11-16 18:09] MED LIST changes: +CEPH-264 PO; +TRAZ-123 PO; -TRAZ-86 PO
[2020-11-16 18:33] LABS: BILIRUBIN,URINE SMALL (NEG); CLARITY,URINE CLEAR; NITRITE,URINE POSITIVE (NEG); PROTEIN,URINE NEGATIVE (NEG-TRACE)
[2020-11-16 18:39] LABS: COLOR,URINE DK YELLOW
[2020-11-16 18:41] LABS: BACTERIA,URINE MODERATE /HPF (0-FEW)
[2020-11-16 18:43] LABS: RBC,URINE 0 /HPF (0-2)
[2020-11-16 19:14] VITALS: BP 144/65
--- NOTE | 2020-11-16 19:35 | PHYS DOC ---
Past Medical History Past Medical History: Pneumonia, Other Additional Past Medical Histor: plantar fasciitis; MRSA; Abscess Past Surgical History: Tubal ligation, Other Additional Past Surgical Histo: I&D Smoking Status: Current Every Day Smoker Alcohol Use: None Drug Use: Methamphetamine, Opiates General Adult EDM: Chief Complaint: PAIN ON URINATION HPI: HPI: Patient is a 30 year old female who presents to the ED today complaining of dysuria, frequency for 4 days, patient states she was seen at urgent care 4 days ago and was started on 3 days dose of Bactrim, she states she does not attend any relief. Denies any fever, nausea vomiting, denies any flank pain Review of Systems: Review of Systems: Constitutional: Denies fever or chills. [] GI: Denies abdominal pain, nausea, vomiting, bloody stools or diarrhea. [] : Reports dysuria and frequency Musculoskeletal: Denies back pain or joint pain. [] Integument: Denies rash. [] Neurologic: Denies headache, focal weakness or sensory changes. [] Psychiatric: Denies depression or anxiety. [] Heart Score: Risk Factors: Risk Factors: DM, Current or recent (<one month) smoker, HTN, HLP, family history of CAD, obesity. Risk Scores: Score 0 - 3: 2.5% MACE over next 6 weeks - Discharge Home Score 4 - 6: 20.3% MACE over next 6 weeks - Admit for Clinical Observation Score 7 - 10: 72.7% MACE over next 6 weeks - Early Invasive Strategies Allergies: Allergies: Allergies Coded Allergies Type Severity Reaction Last Updated Verified I S O L A T I O N *CONTACT* Allergy Unknown 11/06/18 Yes No Known Medication Allergies Allergy Unknown 11/06/18 Yes Physical Exam: PE: Constitutional: Well developed, well nourished, no acute distress, non-toxic appearance. [] Abdomen: Bowel sounds normal, soft, no tenderness, no masses, no pulsatile mas ses. [] Skin: Warm, dry, no erythema, no rash. [] Back: No tenderness, no CVA tenderness. [] Extremities: No tenderness, no cyanosis, no clubbing, ROM intact, no edema. [] Neurologic: Alert and oriented X 3, normal motor function, normal sensory function, no focal deficits noted. [] Psychologic: Affect normal, judgement normal, mood normal. Current Patient Data: Labs: Laboratory Tests Test 11/16/20 18:23 11/16/20 18:28 Urine Collection Type Unknown Urine Color Dk yellow Urine Clarity Clear Urine pH 6.0 (<5.0-8.0) Urine Specific [place] >=1.030 (1.000-1.030) Urine Protein Negative mg/dL (NEG-TRACE) Urine Glucose (UA) Negative mg/dL (NEG) Urine Ketones (Stick) Negative mg/dL (NEG) Urine Blood Negative (NEG) Urine Nitrite Positive (NEG) Urine Bilirubin Small (NEG) Urine Urobilinogen Dipstick 1.0 mg/dL (0.2 mg/dL) Urine Leukocyte Esterase Small (NEG) Urine RBC 0 /HPF (0-2) Urine WBC 5-10 /HPF (0-4) Urine Squamous Epithelial Cells Many /LPF Urine Bacteria Moderate /HPF (0-FEW) Urine Mucus Marked /LPF POC Urine HCG, Qualitative Hcg negative (Negative) EKG: EKG: [] Radiology/Procedures: Radiology/Procedures: [] Course & Med Decision Making: Course & Med Decision Making Pertinent Labs and Imaging studies reviewed. (See chart for details) This is a 30-year-old female patient presenting to the ED today complaining of dysuria and frequency for 4 days, was started on Bactrim 4 days ago which she completed yesterday with no improvement. UA positive for UTI, discharged on cephalexin. Gerald Disclaimer: Gerald Disclaimer: This electronic medical record was generated, in whole or in part, using a voice recognition dictation system. Departure Departure Impression: Primary Impression: Urinary tract infection Qualified Codes: N39.0 - Urinary tract infection, site not specified Disposition: 01 [place] HOME SELF CARE/HOMELESS Condition: STABLE Referrals: NO PCP (PCP) Follow-up with your doctor in 1 to 2 weeks Patient Instructions: Urinary Tract Infection Additional Instructions: You were treated for urinary tract infection with cephalexin, please ensure you complete this medicine. Take Tylenol/Motrin for pain or fever. Push fluids. Follow-up with your own doctor in 1 to 2 weeks Scripts Cephalexin (CEPHALEXIN) 500 Mg Tablet 1 TAB PO BID, #14 TAB Prov: ASHA HUFFMAN APRN 11/16/20 ASHA HUFFMAN APRN Nov 16, 2020 19:35
[2020-11-16] MEDS ORDERED: CEPH500T PO (19:37)
== END 2020-11-16 19:55 | disposition home or self-care (01) ==
LOC: ER 18:09
DX: N39.0 Urinary tract infection, site not specified (principal); F17.200 Nicotine dependence, unspecified, uncomplicated; Z98.51 Tubal ligation status; Z86.14 Personal history of Methicillin resistant Staphylococcus aureus infection; Z91.041 Radiographic dye allergy status
CPT/HCPCS: 81001; 81025; 87086; 87491; 87591; 99283

== ENCOUNTER 2020-12-02 07:32 | Emergency (ER) | payer MEDICAID ==
[~2020-12-02] VITALS: Ht 170.2 cm; Wt 86.7 kg
[2020-12-02 08:17] LABS: BILIRUBIN,URINE NEGATIVE (NEG); CLARITY,URINE CLOUDY; COLOR,URINE ORANGE; NITRITE,URINE POSITIVE (NEG); PH,URINE 5.5 (<5.0-8.0); PROTEIN,URINE 30 mg/dL (NEG-TRACE)
[2020-12-02 08:35] LABS: BACTERIA,URINE MANY /HPF (0-FEW); WBC,URINE 20-40 /HPF (0-4)
[2020-12-02] MEDS ORDERED: AMOX1TAB61 PO (09:04)
--- NOTE | 2020-12-02 09:04 | ED.ADGEN ---
Past Medical History Past Medical History: Pneumonia, Other Additional Past Medical Histor: plantar fasciitis; MRSA; Abscess, COVID 08/12 Past Surgical History: Tubal ligation, Other Additional Past Surgical Histo: I&D Smoking Status: Former Smoker Alcohol Use: None Drug Use: Methamphetamine, Opiates General Adult EDM: Chief Complaint: PAIN ON URINATION HPI: HPI: Patient is a 30-year-old female who presents to the emergency room complaining of urinary frequency, lower back and lower abdominal pain, burning, urinary ur gency. Patient states that a couple weeks ago she was here with similar symptoms. At that time she was placed on antibiotics for 7 days which she finished. She states that did improve the symptoms but they did continue to linger after she finished her antibiotics. Symptoms restarted with severity last night. She has tried Azo without any relief. She denies any, nausea, vomiting, chills, sweats, fever. She has been taking Tylenol and ibuprofen without relief. Review of Systems: Review of Systems: Complete ROS is negative unless otherwise documented in HPI Allergies: Allergies: Allergies Coded Allergies Type Severity Reaction Last Updated Verified I S O L A T I O N *CONTACT* Allergy Unknown 11/06/18 Yes No Known Medication Allergies Allergy Unknown 12/02/20 Yes Physical Exam: PE: General: Awake, alert, NAD. Well Nourished, well hydrated. Cooperative HEENT: Atraumatic, EOMI, PERRL, airway patent, moist oral mucosa Neck: Supple, trachea midline Respiratory: CTA bilaterally, normal effort, no wheezing/crackles CV: RRR, no murmur, cap refill <2 GI: Soft, nondistended, nontender, no masses MSK: No obvious deformities Skin: Warm, dry, intact Neuro: A&O x3, speech NL, sensory and motor grossly intact, no focal deficits Psych: Normal affect, normal mood, not suicidal or homicidal Current Patient Data: Labs: Laboratory Tests Test 12/02/20 07:40 12/02/20 07:47 Urine Collection Type Unknown Urine Color Beals Urine Clarity Cloudy Urine pH 5.5 (<5.0-8.0) Urine Specific [place] 1.020 (1.000-1.030) Urine Protein 30 mg/dL (NEG-TRACE) Urine Glucose (UA) Negative mg/dL (NEG) Urine Ketones (Stick) Negative mg/dL (NEG) Urine Blood Small (NEG) Urine Nitrite Positive (NEG) Urine Bilirubin Negative (NEG) Urine Urobilinogen Dipstick 1.0 mg/dL (0.2 mg/dL) Urine Leukocyte Esterase Large (NEG) Urine RBC 1-2 /HPF (0-2) Urine WBC 20-40 /HPF (0-4) Urine Squamous Epithelial Cells Mod /LPF Urine Bacteria Many /HPF (0-FEW) Urine Mucus Mod /LPF POC Urine HCG, Qualitative Hcg negative (Negative) Vital Signs: Vital Signs Date Time Temp Pulse Resp B/P (MAP) Pulse Ox O2 Delivery O2 Flow Rate FiO2 12/02/20 09:16 48 16 99 12/02/20 07:41 97.8 138/76 (96) Room Air 97.8 EKG: EKG: [] Heart Score: C/O Chest Pain: N/A Risk Factors: Risk Factors: DM, Current or recent (<one month) smoker, HTN, HLP, family history of CAD, obesity. Risk Scores: Score 0 - 3: 2.5% MACE over next 6 weeks - Discharge Home Score 4 - 6: 20.3% MACE over next 6 weeks - Admit for Clinical Observation Score 7 - 10: 72.7% MACE over next 6 weeks - Early Invasive Strategies Radiology/Procedures: Radiology/Procedures: [] Course & Med Decision Making: Course & Med Decision Making Pertinent Labs and Imaging studies reviewed. (See chart for details) Patient is a 30-year-old female who presents to the emergency room with urinary symptoms. She was tested for gonorrhea and chlamydia 2 weeks ago which were negative at that time. Patient likely has a UTI that failed initial treatment. Patient will need a longer duration of antibiotics. Will place her on Augmentin based off of her urine culture from 2 weeks ago. Patient's test results and vitals while in the ED were fully reviewed and discussed with the patient. Patient is stable and at this time does not need admission to the hospital. We have discussed strict return precautions and the importance of following up with their Primary Care Physician. Patient stated understanding and was given an opportunity to ask any questions. Patient is in agreement with plan. Christion Disclaimer: Gerald Disclaimer: This electronic medical record was generated, in whole or in part, using a voice recognition dictation system. Departure Departure Impression: Primary Impression: Urinary tract infection Disposition: 01 DC HOME SELF CARE/HOMELESS Condition: STABLE Referrals: NO PCP (PCP) Patient Instructions: Urinary Tract Infection Scripts Amoxicillin/Potassium Clav (AUGMENTIN 875-125 TABLET) 1 Each Tablet 1 TAB PO Q12HR, #14 TAB Prov: SU MENDES MD 12/02/20 SU MENDES MD Dec 02, 2020 09:04
[2020-12-02 09:16] VITALS: BP 116/73
== END 2020-12-02 09:16 | disposition home or self-care (01) ==
LOC: ER 07:32
DX: N39.0 Urinary tract infection, site not specified (principal); R35.0 Frequency of micturition; R10.30 Lower abdominal pain, unspecified; R11.2 Nausea with vomiting, unspecified; F19.90 Other psychoactive substance use, unspecified, uncomplicated; F15.90 Other stimulant use, unspecified, uncomplicated; Z86.14 Personal history of Methicillin resistant Staphylococcus aureus infection; Z98.890 Other specified postprocedural states; Z98.51 Tubal ligation status; Z88.8 Allergy status to other drugs, medicaments and biological substances
CPT/HCPCS: 81001; 81025; 99283

== ENCOUNTER 2021-08-06 12:40 | Emergency (ER) | payer MEDICAID ==
[~2021-08-06] VITALS: Ht 170.2 cm; Wt 74.8 kg
[~2021-08-06 12:40] MED LIST changes: +AMOX1TAB61 PO; +CYCL10TA19 PO; -CYCL10TA2 PO
[2021-08-06 13:15] VITALS: BP 117/63
[2021-08-06 13:53] LABS: BILIRUBIN,URINE NEGATIVE (NEG); CLARITY,URINE CLEAR; COLOR,URINE YELLOW; NITRITE,URINE NEGATIVE (NEG); PH,URINE 6.5 (<5.0-8.0); PROTEIN,URINE NEGATIVE (NEG-TRACE); UROBILINOGEN,URINE 0.2 mg/dL (0.2 mg/dL)
[2021-08-06 14:12] LABS: BACTERIA,URINE FEW /HPF (0-FEW); RBC,URINE OCC /HPF (0-2)
[2021-08-06 14:53] LABS: BASO % 0 % (0-3); EOS % 0 % (0-3); HEMATOCRIT 34.3 % (36.0-47.0); HEMOGLOBIN 11.4 g/dL (12.0-15.5); LYMPH # 1.8 x10^3/uL (1.0-4.8); LYMPH % 30 % (24-48); MEAN CORPUSCULAR HEMOGLOBIN 30 pg (25-35); MEAN CORPUSCULAR HGB CONC 33 g/dL (31-37); MEAN CORPUSCULAR VOLUME 90 fL (79-100); MONO # 0.4 x10^3/uL (0.0-1.1); MONO % 7 % (0-9); NEUT # 3.7 x10^3/uL (1.8-7.7); NEUT % 62 % (31-73); PLATELET COUNT 228 x10^3/uL (140-400); RED BLOOD COUNT 3.81 x10^6/uL (3.50-5.40); RED CELL DISTRIBUTION WIDTH 15.5 % (11.5-14.5); WHITE BLOOD COUNT 5.9 x10^3/uL (4.0-11.0)
--- NOTE | 2021-08-06 14:55 | PHYS DOC ---
Past Medical History Past Medical History: Pneumonia, Other Additional Past Medical Histor: plantar fasciitis; MRSA; Abscess, COVID 08/12 Past Surgical History: Tubal ligation, Other Additional Past Surgical Histo: I&D Smoking Status: Never Smoker Alcohol Use: None Drug Use: Methamphetamine, Opiates General Adult EDM: Chief Complaint: FLANK PAIN HPI: HPI: Patient is a 31-year-old female who presents to the emergency department for left lower abdominal pain that radiates to her left flank area. Patient reports the pain started 3 days ago. She rates it 5 out of 10. No treatment prior to arrival. She describes as an intermittent pain. She reports that her last bowel movement was 2 days ago. She has a history of urinary tract infections. She denies any history of kidney stones. She denies dysuria, nausea, vomiting, fevers, hematuria, urinary frequency or urgency. Review of Systems: Review of Systems: Constitutional: See HPI GI: See HPI : See HPI Musculoskeletal: See HPI Heart Score: C/O Chest Pain: N/A Risk Factors: Risk Factors: DM, Current or recent (<one month) smoker, HTN, HLP, family history of CAD, obesity. Risk Scores: Score 0 - 3: 2.5% MACE over next 6 weeks - Discharge Home Score 4 - 6: 20.3% MACE over next 6 weeks - Admit for Clinical Observation Score 7 - 10: 72.7% MACE over next 6 weeks - Early Invasive Strategies Allergies: Allergies: Allergies Coded Allergies Type Severity Reaction Last Updated Verified I S O L A T I O N *CONTACT* Allergy Unknown 11/06/18 Yes No Known Medication Allergies Allergy Unknown 12/02/20 Yes Physical Exam: PE: Constitutional: Well developed, well nourished, no acute distress, non-toxic appearance. [] HENT: Normocephalic, atraumatic, bilateral external ears normal, oropharynx moist, no oral exudates, nose normal. [] Eyes: PERRL, EOMI, conjunctiva normal, no discharge. [] Neck: Normal range of motion, no stridor Cardiovascular:Heart rate regular rhythm, no murmur [] Lungs & Thorax: Bilateral breath sounds clear to auscultation [] Abdomen: Bowel sounds normal, soft, no tenderness, no masses, no pulsatile masses. [] Skin: Warm, dry, no erythema, no rash. [] Back: No tenderness, left-sided CVA tenderness with palpation Extremities: No tenderness, no cyanosis, no clubbing, ROM intact, no edema. [] Neurologic: Alert and oriented X 3, normal motor function, normal sensory function, no focal deficits noted. [] Psychologic: Affect normal, judgement normal, mood normal. [] Current Patient Data: Labs: Laboratory Tests Test 08/06/21 13:30 08/06/21 13:43 Urine Collection Type Unknown Urine Color Yellow Urine Clarity Clear Urine pH 6.5 (<5.0-8.0) Urine Specific [place] 1.025 (1.000-1.030) Urine Protein Negative mg/dL (NEG-TRACE) Urine Glucose (UA) Negative mg/dL (NEG) Urine Ketones (Stick) Negative mg/dL (NEG) Urine Blood Negative (NEG) Urine Nitrite Negative (NEG) Urine Bilirubin Negative (NEG) Urine Urobilinogen Dipstick 0.2 mg/dL (0.2 mg/dL) Urine Leukocyte Esterase Negative (NEG) Urine RBC Occ /HPF (0-2) Urine WBC 1-4 /HPF (0-4) Urine Squamous Epithelial Cells Mod /LPF Urine Bacteria Few /HPF (0-FEW) Urine Mucus Mod /LPF POC Urine HCG, Qualitative Hcg negative (Negative) Vital Signs: Vital Signs Date Time Temp Pulse Resp B/P (MAP) Pulse Ox O2 Delivery O2 Flow Rate FiO2 08/06/21 13:15 97.9 69 10 117/63 (81) 100 Room Air 97.9 EKG: EKG: [] Radiology/Procedures: Radiology/Procedures: []PROCEDURE: CT ABD PELV W/ IV CONTRST ONLY EXAM: CT Abdomen and Pelvis with IV contrast CLINICAL HISTORY: Reason: LLQ pain / Spl. Instructions: omni 300 inj.75 mls / History: . COMPARISON: none TECHNIQUE: Helical CT of the abdomen and pelvis was performed following the administration of intravenous contrast. Axial, coronal and sagittal reformatted images were generated. PQRS compliance statement - One or more of the following individualized dose reduction techniques were utilized for this study: 1. Automated exposure control 2. Adjustment of the mA and/or kV according to patient size 3. Use of iterative reconstruction technique FINDINGS: Lower Chest: Visualized lung bases are clear. Abdomen and Pelvis: Subcentimeter hypoattenuating focus in segment 8 favoring a simple hepatic cyst. Small amount of focal fat adjacent to the falciform ligament. No evidence of acute hepatic process. The gallbladder, spleen, adrenals, and pancreas are unremarkable. Symmetric bilateral nephrograms. No nephrolithiasis or hydroureteronephrosis. Stomach is normal. No evidence of bowel obstruction. Appendix is normal. There is a moderate to large stool burden predominantly in the descending and transverse colon with a moderate amount of stool within the rectum. There is a ill-defined, fat-containing mass with a subtle peripheral rim involving the descending colon axial images 47-57/2, suggestive of omental infarct. No intra- abdominal air or free fluid. Uterus is present. There is hypoattenuating material within the endometrial canal with increased attenuation of the endometrium. Prior changes of tubal ligation. No suspicious adnexal masses. No significant free pelvic fluid. Urinary bladder is unremarkable. Bones: No acute or suspicious osseous abnormalities. IMPRESSION: 1. 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 2. Possibly physiologic changes of the uterus, clinical correlation is advised. 3. Moderate to large colorectal stool burden suggestive of constipation. Electronically signed by: Shady Tafoya DO (08/06/2021 3:47 PM) [facility] Course & Med Decision Making: Course & Med Decision Making Pertinent Labs and Imaging studies reviewed. (See chart for details) [] Patient presents to the emergency department for left lower quadrant pain that radiates to her left flank. Work-up in the ER consisted of urinalysis that was unremarkable there was a small amount of bacteria but squamous cells present indicating likely contamination. Follow urinalysis, blood work and CT imaging of the abdomen was performed. Lab work unremarkable. CT imaging showed omental infarct in the descending colon and constipation. I discussed these findings with Dr. Cornelius ulloa for general surgery at [facility] and he reported to have the patient take anti-inflammatory medications and follow-up with them in the office outpatient. Patient be discharged home with pain medication, antibiotics and magnesium citrate for her constipation. She was given follow-up information. I discussed with patient all findings and diagnostic testing as well as the need to follow-up with PCP for further evaluation and treatment or return to the ER if any new or worsening symptoms. Strict return precautions were also discussed at length. Patient voiced understanding and agreement with the plan. Patient is hemodynamically stable at the time of disposition. Dragon Disclaimer: Dragon Disclaimer: This electronic medical record was generated, in whole or in part, using a voice recognition dictation system. Departure Departure Impression: Primary Impression: Constipation Qualified Codes: K59.00 - Constipation, unspecified Disposition: HOME / SELF CARE / HOMELESS Condition: GOOD Referrals: NO PCP (PCP) LEELA MONDRAGON MD Patient Instructions: Constipation, Adult Additional Instructions: You were seen in the emergency department today for left lower abdominal pain. Your work-up in the ER was mostly unremarkable, however you have constipation seen on your CT scan of your abdomen. You need to follow-up with the general surgeon at [facility], Dr. Ca because you were noted to have an omental infarct which can cause abdominal pain but is treated with anti- inflammatory medications. His information is attached to this paperwork, you must call him tomorrow to set up a follow-up appointment. You are being discharged home with an antibiotic and should start and finish that completely. For your pain you can take ibuprofen or naproxen. For your constipation, take magnesium citrate. You are being discharged home with a prescription for that medication he can drink half the bottle of magnesium citrate and wait 4 to 5 hours for a bowel movement and if you do not have a bowel movement you can drink the remainder of the bottle. Return to the emergency department if you develop worsening of your abdominal pain, intractable nausea or vomiting, high fevers refractory to treatment, blood in your stools or vomit any new or worsening concerns. EMERGENCY DEPARTMENT GENERAL DISCHARGE INSTRUCTIONS Thank you for coming to [facility] Emergency Department (ED) today and trusting us with you care. We trust that you had a positive experience in our Emergency Department. If you wish to speak to the department management, you may call the Director at [phone]. YOUR FOLLOW UP INSTRUCTIONS ARE FOLLOWS: 1. Do you have a private Doctor? If you do not have a private doctor, please ask for a resource list of physicians or clinics that may be able to assist you with fo llow up care. 2. The Emergency Physicain has interpreted your x-rays. The X-Ray specialist will also review them. If there is a change in the findings, you will be notified in 48 hours when at all possible. 3. A lab test or culture has been done, your results will be reviewed and you will be notified if you need a change in treatment. ADDITIONAL INSTRUCTIONS AND INFORMATION: 1. Your care today has been supervised by a physician who is specially trained in emergency care. Many problems require more than one evaluation for a complete diagnosis and treatment. We recommend that you schedule your follow up appointment as recommended to ensure complete treatment of you illness or injury. If you are unable to obtain follow up care and continue to have a problem, or if your condition worsens, we recommend that you return to the ED. 2. We are not able to safely determine your condition over the phone nor are we able to give sound medical advice over the phone. For these safety reasons, if you call for medical advice we will ask you to come to the ED for further evaluation. 3. If you have any questions regarding these discharge instructions please call the ED at [phone]. SAFETY INFORMATION: In the interest of safety, wellness, and injury prevention; we encourage you to wear your sealbelt, if you smoke; quite smoking, and we encourage family to use a protecti ve helmet for bicycling and other sporting events that present an increased risk for head injury. IF YOUR SYMPTOMS WORSEN OR NEW SYMPTOMS DEVELOP, OR YOU HAVE CONCERNS ABOUT YOUR CONDITION; OR IF YOUR CONDITION WORSENS WHILE YOU ARE WAITING FOR YOUR FOLLOW UP APPOINTMENT; EITHER CONTACT YOUR PRIMARY CARE DOCTOR, THE PHYSICIAN WHOSE NAME AND NUMBER YOU WERE GIVEN, OR RETURN TO THE ED IMMEDIATELY. Scripts Amoxicillin/Potassium Clav (AUGMENTIN 875-125 TABLET) 1 Each Tablet 1 TAB PO BID for 10 Days, #20 TAB 0 Refills Prov: WINSTON ESQUIVLE APRN 08/06/21 WINSTON ESQUIVEL APRN Aug 06, 2021 14:55
[2021-08-06 15:03] LABS: CALCIUM 8.7 mg/dL (8.5-10.1); CREATININE 0.7 mg/dL (0.6-1.0); GFR 98.3; POTASSIUM 3.9 mmol/L (3.5-5.1)
[2021-08-06 15:09] LABS: ALBUMIN 3.3 g/dL (3.4-5.0); ALBUMIN/GLOBULIN RATIO 0.9 (1.0-1.7); TOTAL BILIRUBIN 0.2 mg/dL (0.2-1.0)
[2021-08-06] MEDS ORDERED: IOHEXOL 350 MG/ML 100 ML VIAL. IV ONE (15:15)
[2021-08-06] MEDS ORDERED: CONTRAST GIVEN. MC PRN (15:30)
[2021-08-06] MEDS ORDERED: IOHEXOL 300 MG/ML 100ML VIAL. IV ONE (15:30)
--- NOTE | 2021-08-06 15:49 | RAD ---
EXAM: CT Abdomen and Pelvis with IV contrast CLINICAL HISTORY: Reason: LLQ pain / Spl. Instructions: omni 300 inj.75 mls / History: . COMPARISON: none TECHNIQUE: Helical CT of the abdomen and pelvis was performed following the administration of intrave nous contrast. Axial, coronal and sagittal reformatted images were generated. PQRS compliance statement - One or more of the following individualized dose reduction techniques wer e utilized for this study: 1. Automated exposure control 2. Adjustment of the mA and/or kV according to patient size 3. Use of iterative reconstruction technique FINDINGS: Lower Chest: Visualized lung bases are clear. Abdomen and Pelvis: Subcentimeter hypoattenuating focus in segment 8 favoring a simple hepatic cyst. Small amount of foca l fat adjacent to the falciform ligament. No evidence of acute hepatic process. The gallbladder, sple en, adrenals, and pancreas are unremarkable. Symmetric bilateral nephrograms. No nephrolithiasis or h ydroureteronephrosis. Stomach is normal. No evidence of bowel obstruction. Appendix is normal. There is a moderate to large stool burden predominantly in the descending and transverse colon with a moderate amount of stool wi thin the rectum. There is a ill-defined, fat-containing mass with a subtle peripheral rim involving t he descending colon axial images 47-57/2, suggestive of omental infarct. No intra-abdominal air or fr ee fluid. Uterus is present. There is hypoattenuating material within the endometrial canal with increased atte nuation of the endometrium. Prior changes of tubal ligation. No suspicious adnexal masses. No signifi cant free pelvic fluid. Urinary bladder is unremarkable. Bones: No acute or suspicious osseous abnormalities. IMPRESSION: 1. 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 2. Possibly physiologic changes of the uterus, clinical correlation is advised. 3. Moderate to large colorectal stool burden suggestive of constipation. Electronically signed by: Shady Tafyoa DO (08/06/2021 3:47 PM) [facility]
[2021-08-06] MEDS ORDERED: AMOX1TAB61 PO (16:37)
[2021-08-06] MEDS ORDERED: MAGNESIUM CITRATE 296 ML SOLUTION. PO ONE (16:45)
== END 2021-08-06 17:00 | disposition home or self-care (01) ==
LOC: ER 12:40
DX: K59.00 Constipation, unspecified (principal); Z91.041 Radiographic dye allergy status
CPT/HCPCS: 36415; 74177; 80053; 81001; 81025; 83690; 85025; 99285; Q9967

== ENCOUNTER 2021-12-24 10:06 | Emergency (ER) | payer MEDICAID ==
[~2021-12-24] VITALS: Ht 170.2 cm; Wt 73.0 kg
[~2021-12-24 10:06] MED LIST changes: -TRAM1TAB56 PO; +TRAM1TAB57 PO
[2021-12-24] MEDS ORDERED: KETOROLAC 30 MG/ML VIAL. IVP ONE (11:00)
[2021-12-24] MEDS ORDERED: ACETAMINOPHEN 325 MG TABLET. PO ONE (11:00)
[2021-12-24] MEDS ORDERED: IV NORMAL SALINE 1000ML BAG 1,000 ML IV SCH (11:00)
--- NOTE | 2021-12-24 11:09 | PHYS DOC ---
Past Medical History Past Medical History: Pneumonia, Other Additional Past Medical Histor: plantar fasciitis; MRSA; Abscess, COVID 08/12 Past Surgical History: Tubal ligation, Other Additional Past Surgical Histo: I&D Smoking Status: Current Every Day Smoker Additional Information: 0.25 PPD Alcohol Use: None Drug Use: Methamphetamine, Opiates General Adult EDM: Chief Complaint: FEVER HPI: HPI: Patient is a 31 year old female with a history of frequent UTIs comes in with a fever dysuria and pelvic discomfort. Patient states that she had feels like she is having a UTI. She does follow with a urologist as an appointment this week. Denies any back pain denies any nausea or vomiting. Denies any upper respiratory symptoms. Review of Systems: Review of Systems: Constitutional: Fever chills body aches fatigue Eyes: Denies change in visual acuity. HENT: Denies nasal congestion or sore throat. Respiratory: Denies cough or shortness of breath. Cardiovascular: Denies chest pain or edema. GI: Denies abdominal pain, nausea, vomiting, bloody stools or diarrhea. : Dysuria urinary frequency and suprapubic discomfort Musculoskeletal: Denies back pain or joint pain. Integument: Denies rash. Neurologic: Denies headach, focal weakness or sensory changes. Endocrine: Denies polyuria or polydipsia. Lymphatic: Denies swollen glands. Psychiatric: Denies depression or anxiety. Heart Score: C/O Chest Pain: No Risk Factors: Risk Factors: DM, Current or recent (<one month) smoker, HTN, HLP, family history of CAD, obesity. Risk Scores: Score 0 - 3: 2.5% MACE over next 6 weeks - Discharge Home Score 4 - 6: 20.3% MACE over next 6 weeks - Admit for Clinical Observation Score 7 - 10: 72.7% MACE over next 6 weeks - Early Invasive Strategies Current Medications: Current Medications Medications (Trade) Dose Ordered Sig/Domenico Start Time Stop Time Status Last Admin Dose Admin Acetaminophen (Tylenol) 650 mg 1X ONCE 12/24/21 11:00 12/24/21 11:01 DC Ketorolac Tromethamine (Toradol 30mg Vial) 15 mg 1X ONCE 12/24/21 11:00 12/24/21 11:01 DC Sodium Chloride 1,000 ml @ 1,000 mls/hr Q1H 12/24/21 11:00 12/24/21 11:59 Allergies: Allergies: Allergies Coded Allergies Type Severity Reaction Last Updated Verified I S O L A T I O N *CONTACT* Allergy Unknown 11/06/18 Yes No Known Medication Allergies Allergy Unknown 12/02/20 Yes Physical Exam: PE: Constitutional: Well developed, well nourished, no acute distress, non-toxic appearance. Febrile HENT: Normocephalic, atraumatic, bilateral external ears normal, oropharynx moist, no oral exudates, nose normal. Eyes: PERRLA, EOMI, conjunctiva normal, no discharge. Neck: Normal range of motion, no tenderness, supple, no stridor. Cardiovascular:Heart rate regular rhythm, no murmur Lungs & Thorax: Bilateral breath sounds clear to auscultation Abdomen: Bowel sounds normal, soft, no tenderness, no masses, no pulsatile masses. Skin: Warm, dry, no erythema, no rash. Back: No tenderness, no CVA tenderness. Extremities: No tenderness, no cyanosis, no clubbing, ROM intact, no edema. Neurologic: Alert and oriented X 3, normal motor function, normal sensory function, no focal deficits noted. Psychologic: Affect normal, judgement normal, mood normal. Current Patient Data: Labs: Laboratory Tests Test 12/24/21 10:37 POC Urine HCG, Qualitative Hcg negative (Negative) Vital Signs: Vital Signs Date Time Temp Pulse Resp B/P (MAP) Pulse Ox O2 Delivery O2 Flow Rate FiO2 12/24/21 10:08 102.2 97 18 133/71 (91) 96 Room Air 102.2 EKG: EKG: [] Radiology/Procedures: Radiology/Procedures: [] Course & Med Decision Making: Course & Med Decision Making Pertinent Labs and Imaging studies reviewed. (See chart for details) Patient is hemodynamically stable and clinically is improved patient given strict return precautions will follow-up in the outpatient setting. Patient has appointment with there is urologist Gerald Disclaimer: Gerald Disclaimer: This electronic medical record was generated, in whole or in part, using a voice recognition dictation system. Departure Departure Referrals: NO PCP (PCP) SANTOSH PRESCOTT DO Dec 24, 2021 11:09
[2021-12-24 11:25] LABS: CALCIUM 8.5 mg/dL (8.5-10.1); CREATININE 0.8 mg/dL (0.6-1.0); GFR 84.2; POTASSIUM 3.7 mmol/L (3.5-5.1)
[2021-12-24 11:31] LABS: PREG TEST PT QUAL NEGATIVE (NEG)
[2021-12-24 11:32] LABS: ALBUMIN 3.4 g/dL (3.4-5.0); ALBUMIN/GLOBULIN RATIO 0.9 (1.0-1.7); TOTAL BILIRUBIN 0.5 mg/dL (0.2-1.0); TOTAL PROTEIN 7.3 g/dL (6.4-8.2)
[2021-12-24 11:34] LABS: BASO % 0 % (0-3); EOS % 0 % (0-3); HEMATOCRIT 32.9 % (36.0-47.0); HEMOGLOBIN 10.3 g/dL (12.0-15.5); LYMPH % 7 % (24-48); MEAN CORPUSCULAR HEMOGLOBIN 27 pg (25-35); MEAN CORPUSCULAR HGB CONC 31 g/dL (31-37); MEAN CORPUSCULAR VOLUME 87 fL (79-100); MONO # 1.3 x10^3/uL (0.0-1.1); MONO % 9 % (0-9); NEUT # 11.9 x10^3/uL (1.8-7.7); NEUT % 84 % (31-73); PLATELET COUNT 188 x10^3/uL (140-400); RED BLOOD COUNT 3.77 x10^6/uL (3.50-5.40); RED CELL DISTRIBUTION WIDTH 14.7 % (11.5-14.5); WHITE BLOOD COUNT 14.2 x10^3/uL (4.0-11.0)
[2021-12-24] MEDS ORDERED: cefTRIAXone IV Push 1 GM VIAL. IVP ONE (12:00)
[2021-12-24] MEDS ORDERED: MORPHINE SULFATE 2 MG/ML INJ. IVP ONE (12:00)
[2021-12-24 12:16] LABS: RBC,URINE 0 /HPF (0-2)
[2021-12-24 12:17] LABS: BACTERIA,URINE MANY /HPF (0-FEW)
[2021-12-24] MEDS ORDERED: CEFU500T46 PO (12:33)
[2021-12-24] MEDS ORDERED: PHEN100T82 PO (12:34)
[2021-12-24] MEDS ORDERED: IBUP-1007 PO (12:34)
[2021-12-24 12:45] VITALS: BP 93/59
== END 2021-12-24 12:51 | disposition home or self-care (01) ==
LOC: ER 10:06
DX: R50.9 Fever, unspecified (principal); R30.0 Dysuria; R10.2 Pelvic and perineal pain; F17.200 Nicotine dependence, unspecified, uncomplicated; Z86.14 Personal history of Methicillin resistant Staphylococcus aureus infection; Z98.51 Tubal ligation status; Z91.041 Radiographic dye allergy status
CPT/HCPCS: 36415; 80053; 81001; 81025; 84703; 85025; 96361; 96374; 96375; 99284; J0696; J1885; J2270; J7030